=== PATIENT | male | born 1965 | race Caucasian/White ===

== ENCOUNTER 2016-09-21 23:16 | Emergency (ER) | payer OTHER ==
[2016-09-21 23:35] VITALS: TEMP 98.3
--- NOTE | 2016-09-22 00:26 | ED ---
General Adult HPI - General Chief complaint: Headache Stated complaint: Fall/Headaches Time Seen by Provider: 09/22/16 00:18 Source: patient, RN notes reviewed Mode of arrival: ambulatory Limitations: no limitations - History of Present Illness Initial comments: Patient is a 50-year-old male who presents emergency room today with a chief complaint of a fall that occurred 2 weeks ago. He does admit that he's had headaches with "pressure" in the back of his head over the last 2 weeks. He states he saw his family doctor was diagnosed concussion at the time. Patient states still having any symptoms at times is been somewhat forgetful. He gives examples of being in the kitchen coming only from downstairs not sure what he is looking for. Patient states the pressure in his head is constant. He denies any other complaints. Patient denies any recent fever, chills, shortness of breath, chest pain, back pain, abdominal pain, nausea or vomiting, numbness or tingling, dysuria or hematuria, constipation or diarrhea, visual changes, or any other complaints. - Related Data Allergies Allergy/AdvReac Type Severity Reaction Status Date / Time No Known Allergies Allergy Verified 09/21/16 23:35 Review of Systems ROS Statement: Those systems with pertinent positive or pertinent negative responses have been documented in the HPI. ROS Other: All systems not noted in ROS Statement are negative. Past Medical History Past Medical History: Hypertension, Osteoarthritis (OA) History of Any Multi-Drug Resistant Organisms: None Reported Additional Past Surgical History / Comment(s): Laparotomy Past Psychological History: No Psychological Hx Reported Smoking Status: Current every day smoker Past Alcohol Use History: Daily, Heavy General Exam - General Exam Comments Initial Comments: General: The patient is awake and alert, in no distress, and does not appear acutely ill. Eye: Pupils are equal, round and reactive to light, extra-ocular movements are intact. No nystagmus. There is normal conjunctiva bilaterally. No signs of icterus. Ears, nose, mouth and throat: There are moist mucous membranes and no oral lesions. Neck: The neck is supple, there is no tenderness or JVD. Cardiovascular: There is a regular rate and rhythm. No murmur, rub or gallop is appreciated. Respiratory: Lungs are clear to auscultation, respirations are non-labored, breath sounds are equal. No wheezes, stridor, rales, or rhonchi. Gastrointestinal: Soft, non-distended, non-tender abdomen without masses or organomegaly noted. There is no rebound or guarding present. No CVA tenderness. Bowel sounds are unremarkable. Musculoskeletal: Normal ROM, no tenderness. Strength 5/5. Sensation intact. Pulses equal bilaterally 2+. Neurological: A&O x 3. CN II-XII intact, There are no obvious motor or sensory deficits. Coordination appears grossly intact. Speech is normal. Normal finger to nose testing. Normal rapid alternating movements. Strength 5/5 bilaterally both upper and lower extremities. Normal gait. Skin: Skin is warm and dry and no rashes or lesions are noted. Psychiatric: Cooperative, appropriate mood & affect, normal judgment. Limitations: no limitations Course Vital Signs 09/21/16 23:31 Temperature 98.3 F Pulse Rate 105 H Respiratory 20 Rate Blood Pressure 127/73 O2 Sat by Pulse 96 Oximetry Medical Decision Making - Medical Decision Making Patient's CT reviewed and is unremarkable. Signs and symptoms of postconcussion syndrome were discussed with the patient. Patient was found his family doctor also be given on-call neurology. Advised to limit physical activity return here to the emergency room for any symptoms increase or worsen or for any other concerns. Disposition Clinical Impression: Postconcussion syndrome Disposition: HOME SELF-CARE Condition: Good Instructions: Post Concussion Syndrome (ED) Additional Instructions: Please return to physical activity Please follow-up with family doctor/ neurologist in the next 2 days. Please return to emergency room if the symptoms increase or worsen or for any other concerns. Referrals: Morales Adorno MD [Primary Care Provider] - 1-2 days Gale Cramer MD [STAFF PHYSICIAN] - 1-2 days Time of Disposition: 00:46
--- NOTE | 2016-09-22 00:40 | CT ---
EXAMINATION TYPE: CT brain wo con DATE OF EXAM: 09/22/2016 12:33 AM COMPARISON: 01/14/2010 HISTORY: headache and pressure in head CT DLP: 978.20 mGycm Automated exposure control for dose reduction was used. FINDINGS: The ventricles and sulci appear normal. There is no mass effect or midline shift. There is no sign of intracranial hemorrhage. The calvarium is intact. IMPRESSION: Negative unenhanced head CT scan. No change.
[2016-09-22 01:04] VITALS: BP 129/79; PULSE 81; RESP 16
== END 2016-09-22 01:03 | disposition home or self-care (01) ==
LOC: EC 23:16
DX: F07.81 Postconcussional syndrome (principal); F17.200 Nicotine dependence, unspecified, uncomplicated
CPT/HCPCS: 70450; 99284

== ENCOUNTER 2016-11-25 20:11 | Emergency (ER) | payer OTHER ==
[2016-11-25 20:18] VITALS: BP 140/80; PULSE 84; RESP 20; TEMP 97.8
[2016-11-25] MEDS ORDERED: IBUPROFEN 400 MG TAB PO STA (20:24)
--- NOTE | 2016-11-25 20:47 | XR ---
EXAMINATION TYPE: XR knee complete RT DATE OF EXAM: 11/25/2016 8:43 PM COMPARISON: NONE HISTORY: Knee pain TECHNIQUE: 3 views FINDINGS: I see no fracture nor dislocation. Joint spaces are normal. There is no sign of joint effus ion. There is a small spur on the superior patella. IMPRESSION: No acute abnormality of the right knee.
--- NOTE | 2016-11-25 21:15 | ED ---
Lower Extremity Injury HPI - General Chief Complaint: Extremity Injury, Lower Stated Complaint: rt knee injury Time Seen by Provider: 11/25/16 20:22 Source: patient Mode of arrival: ambulatory Limitations: no limitations - History of Present Illness Initial Comments: Patient's 51-year-old man who presents to be evaluated for right knee pain. He states that approximately 2 days ago he was crossing over a gate that he use keep the dog out of his kitchen. He states that his foot caught on and he fell striking the anterior aspect of his right patella. The patient states that he injured that same spot today when he struck it on something while walking. He states that the pain is now moderately severe. 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 denies weakness or numbness. MD Complaint: knee injury Onset/Timin -: days(s) Injury: Knee: Right Type of Injury: blunt Place: home Severity: moderate Improves With: nothing Worsens With: movement Context: fall, direct blow - Related Data Home Medications Medication Instructions Recorded Confirmed Lisinopril 30 mg PO DAILY 11/25/16 11/25/16 Naproxen 500 mg PO DAILY PRN 11/25/16 11/25/16 Previous Rx's Medication Instructions Recorded traMADol HCl [Ultram] 50 mg PO Q6H PRN #16 tab 11/25/16 Allergies Allergy/AdvReac Type Severity Reaction Status Date / Time No Known Allergies Allergy Verified 11/25/16 20:29 Review of Systems ROS Statement: Those systems with pertinent positive or pertinent negative responses have been documented in the HPI. ROS Other: All systems not noted in ROS Statement are negative. Constitutional: Denies: fever, weakness Musculoskeletal: Reports: as per HPI, arthralgia Skin: Denies: lesions Neurological: Denies: weakness, numbness, paresthesias Past Medical History Past Medical History: Hypertension, Osteoarthritis (OA) History of Any Multi-Drug Resistant Organisms: None Reported Additional Past Surgical History / Comment(s): Laparotomy Past Psychological History: No Psychological Hx Reported Smoking Status: Current every day smoker Past Alcohol Use History: Daily, Heavy Past Drug Use History: None Reported General Exam Limitations: no limitations General appearance: alert, in no apparent distress Right Hip exam: Present: full ROM Upper Leg exam: Present: normal inspection, full ROM. Absent: tenderness, swelling Knee exam: Present: normal inspection, full ROM, tenderness (Over the anterior patella), full knee extension. Absent: swelling, abrasion, laceration, ecchymosis, deformity, crepitus, dislocation, pain w/ pronation/supination, posterior draw sign, pain/laxity with valgus, pain/laxity with varus Lower Leg exam: Present: normal inspection, full ROM. Absent: tenderness, swelling Course Vital Signs 11/25/16 20:15 Temperature 97.8 F Pulse Rate 84 Respiratory 20 Rate Blood Pressure 140/80 O2 Sat by Pulse 98 Oximetry Disposition Clinical Impression: Contusion of knee Disposition: HOME SELF-CARE Condition: Good Instructions: Knee Pain (ED), Contusion in Adults (ED) Prescriptions: traMADol HCl [Ultram] 50 mg PO Q6H PRN #16 tab PRN Reason: Pain Referrals: Morales Adorno MD [Primary Care Provider] - 1-2 days
== END 2016-11-25 21:30 | disposition home or self-care (01) ==
LOC: EC 20:11
DX: S80.01XA Contusion of right knee, initial encounter (principal); I10 Essential (primary) hypertension; F17.200 Nicotine dependence, unspecified, uncomplicated; Z79.899 Other long term (current) drug therapy; W01.10XA Fall on same level from slipping, tripping and stumbling with subsequent striking against unspecified object, initial encounter
CPT/HCPCS: 99283

== ENCOUNTER 2016-11-26 08:57 | Emergency (ER) | payer OTHER ==
[2016-11-26 09:06] VITALS: RESP 18
[2016-11-26] MEDS ORDERED: IPRATROPIUM-ALBUTEROL 3 ML NEB INHALATION STA (09:23)
--- NOTE | 2016-11-26 09:31 | ED ---
General Adult HPI - General Chief complaint: Extremity Injury, Lower Stated complaint: NUMBNESS LEFT SIDE, RT KNEE PAIN Time Seen by Provider: 11/26/16 09:14 Source: patient, RN notes reviewed Mode of arrival: wheelchair Limitations: no limitations - History of Present Illness Initial comments: 51-year-old male presents emergency Department with chief complaint of left leg numbness, left-sided weakness. Patient states that he just did not feel right when he went to work this morning. 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 He states that he was walking and seemed to be leaning to the left. Patient did state that he was here last night for right knee pain consistent injury from hitting the gait caused by his dog. Patient states that he does not feel that this was causing him to have an unsteady gait. Patient though states that it does hurt to ambulate on his right side. Denies any upper extremity weakness at this time denies any lower [place] weakness denies headache, dizziness, blurred vision. Patient that should hypertension no other cardiac disease. Patient states is a daily smoker and daily drinker. - Related Data Home Medications Medication Instructions Recorded Confirmed Lisinopril 30 mg PO DAILY 11/25/16 11/26/16 Naproxen 500 mg PO DAILY PRN 11/25/16 11/26/16 Allergies Allergy/AdvReac Type Severity Reaction Status Date / Time No Known Allergies Allergy Verified 11/26/16 10:38 Review of Systems ROS Statement: Those systems with pertinent positive or pertinent negative responses have been documented in the HPI. ROS Other: All systems not noted in ROS Statement are negative. Past Medical History Past Medical History: Hypertension, Osteoarthritis (OA) History of Any Multi-Drug Resistant Organisms: None Reported Additional Past Surgical History / Comment(s): Laparotomy Past Psychological History: No Psychological Hx Reported Smoking Status: Current every day smoker Past Alcohol Use History: Daily, Heavy Past Drug Use History: None Reported General Exam Limitations: no limitations General appearance: alert, in no apparent distress Head exam: Present: atraumatic, normocephalic, normal inspection Eye exam: Present: normal appearance, PERRL, EOMI. Absent: scleral icterus, conjunctival injection, periorbital swelling ENT exam: Present: normal exam, normal oropharynx, mucous membranes moist, TM's normal bilaterally, normal external ear exam Neck exam: Present: normal inspection, full ROM. Absent: tenderness, meningismus, lymphadenopathy Respiratory exam: Present: normal lung sounds bilaterally. Absent: respiratory distress, wheezes, rales, rhonchi, stridor Cardiovascular Exam: Present: regular rate, normal rhythm, normal heart sounds. Absent: systolic murmur, diastolic murmur, rubs, gallop, clicks Extremities exam: Present: normal inspection, full ROM, normal capillary refill. Absent: tenderness, pedal edema, joint swelling, calf tenderness Back exam: Present: tenderness. Absent: full ROM, paraspinal tenderness, vertebral tenderness Neurological exam: Present: alert, oriented X3, CN II-XII intact, other (GCS of 15, NIH 0) Skin exam: Present: warm, dry, intact, normal color. Absent: rash Course Vital Signs 11/26/16 11/26/16 11/26/16 09:02 09:36 09:44 Temperature 97.6 F Pulse Rate 99 82 82 Respiratory 18 Rate Blood Pressure 138/86 O2 Sat by Pulse 96 Oximetry EKG Findings - EKG Comments: EKG Findings:: EKG performed at 9:40 normal sinus rhythm with a rate of 97, VT interval 168, QRS duration 84, QT/QTC 320/406 Medical Decision Making - Medical Decision Making 51-year-old male presented for left leg numbness. Patient has no evidence of CVA, TIA symptoms. Patient's lab work does show mild elevation liver functions most likely related to his alcohol abuse and he does have alcohol of 400. Patient is able to ambulate in the emergency department has no focal weakness. Patient's paresthesias may relate to him favoring his left leg secondary to his right leg injury. Patient will have family come pick him up and when she wakes up responsibility of the patient. - Lab Data Result diagrams: 11/26/16 09:29 11/26/16 09:29 Lab Results 11/26/16 11/26/16 11/26/16 Range/Units 09:29 09:29 09:29 WBC 6.4 (3.8-10.6) k/uL RBC 4.44 (4.30-5.90) m/uL Hgb 14.7 (13.0-17.5) gm/dL Hct 45.0 (39.0-53.0) % MCV 101.5 H (80.0-100.0) fL MCH 33.0 (25.0-35.0) pg MCHC 32.5 (31.0-37.0) g/dL RDW 13.6 (11.5-15.5) % Plt Count 206 (150-450) k/uL Neutrophils % 63 % Lymphocytes % 22 % Monocytes % 8 % Eosinophils % 2 % Basophils % 1 % Neutrophils # 4.1 (1.3-7.7) k/uL Lymphocytes # 1.4 (1.0-4.8) k/uL Monocytes # 0.5 (0-1.0) k/uL Eosinophils # 0.1 (0-0.7) k/uL Basophils # 0.1 (0-0.2) k/uL Macrocytosis Slight Sodium 138 (137-145) mmol/L Potassium 5.2 H (3.5-5.1) mmol/L Chloride 99 (98-107) mmol/L Carbon Dioxide 24 (22-30) mmol/L Anion Gap 15 mmol/L BUN 12 (9-20) mg/dL Creatinine 0.81 (0.66-1.25) mg/dL Est GFR (MDRD) Af Amer >60 (>60 ml/min/1.73 sqM) Est GFR (MDRD) Non-Af >60 (>60 ml/min/1.73 sqM) Glucose 100 H (74-99) mg/dL Calcium 8.5 (8.4-10.2) mg/dL Magnesium 2.2 (1.6-2.3) mg/dL Total Bilirubin 0.4 (0.2-1.3) mg/dL AST 177 H (17-59) U/L ALT 103 H (21-72) U/L Alkaline Phosphatase 113 (38-126) U/L Troponin I <0.012 (0.000-0.034) ng/mL Total Protein 7.9 (6.3-8.2) g/dL Albumin 4.4 (3.5-5.0) g/dL Serum Alcohol 411 mg/dL Disposition Clinical Impression: Alcohol intoxication, Left leg paresthesias Disposition: HOME SELF-CARE Condition: Stable Instructions: Alcohol Intoxication (ED) Additional Instructions: Please return to the Emergency Department if symptoms worsen or any other concerns. Time of Disposition: 10:44
[2016-11-26 09:40] LABS: Basophils # (A) 0.1 k/uL (0-0.2); Basophils % (A) 1 %; CH 33.5; CHCM 33.2; Eosinophils # (A) 0.1 k/uL (0-0.7); Eosinophils % (A) 2 %; HDW 2.02; HGB 14.7 gm/dL (13.0-17.5); Luc # (Auto) 0.24; Luc % (Auto) 4; Lymphocytes # (A) 1.4 k/uL (1.0-4.8); Lymphocytes % (A) 22 %; MCHC 32.5 g/dL (31.0-37.0); MCV 101.5 fL (80.0-100.0); Macrocytosis Slight; Mean Platelet Volume 6.8; Monocytes # (A) 0.5 k/uL (0-1.0); Monocytes % (A) 8 %; Neutrophils # (A) 4.1 k/uL (1.3-7.7); Neutrophils % (A) 63 %; RBC 4.44 m/uL (4.30-5.90); RDW 13.6 % (11.5-15.5); WBC 6.4 k/uL (3.8-10.6); WBC (Perox) 6.48
[2016-11-26 09:49] LABS: ALT 103 U/L (21-72); AST 177 U/L (17-59); Alkaline Phosphatase 113 U/L (38-126); Anion Gap 15 mmol/L; Blood Urea Nitrogen 12 mg/dL (9-20); Calcium 8.5 mg/dL (8.4-10.2); Carbon Dioxide 24 mmol/L (22-30); Chloride 99 mmol/L (98-107); Glucose 100 mg/dL (74-99); Magnesium 2.2 mg/dL (1.6-2.3); Non-African American GFR(MDRD) >60 (>60 ml/min/1.73 sqM); Potassium 5.2 mmol/L (3.5-5.1); Sodium 138 mmol/L (137-145); Total Bilirubin 0.4 mg/dL (0.2-1.3); Total Protein 7.9 g/dL (6.3-8.2)
--- NOTE | 2016-11-26 10:01 | CT ---
EXAMINATION TYPE: CT brain wo con DATE OF EXAM: 11/26/2016 9:54 AM COMPARISON: Prior head CT 02 October 2016 HISTORY: Leaning to the Lt CT DLP: 998.5 mGycm Automated exposure control for dose reduction was used. FINDINGS: There is no acute intracranial hemorrhage, mass effect, or midline shift identified. The ventricles and sulci are within normal limits in size. The globes are intact and the visualized sinuses are earle ar. IMPRESSION: No acute intracranial hemorrhage, mass effect, or midline shift is seen.
--- NOTE | 2016-11-26 10:03 | XR ---
EXAMINATION TYPE: XR chest 2V DATE OF EXAM: 11/26/2016 9:55 AM COMPARISON: Prior chest x-ray 28 June 2013 HISTORY: Shortness of breath TECHNIQUE: Frontal and lateral views of the chest are obtained. FINDINGS: There is no focal air space opacity, pleural effusion, or pneumothorax seen. The cardiac silhouette size is within normal limits. The osseous structures are intact. IMPRESSION: No acute cardiopulmonary process.
[2016-11-26 10:08] LABS: Alcohol 411 mg/dL
[2016-11-26 10:54] VITALS: BP 152/88; PULSE 95; TEMP 97
== END 2016-11-26 10:54 | disposition home or self-care (01) ==
LOC: EC 08:57
DX: S89.92XA Unspecified injury of left lower leg, initial encounter (principal); R20.9 Unspecified disturbances of skin sensation; F10.129 Alcohol abuse with intoxication, unspecified; R79.89 Other specified abnormal findings of blood chemistry; I10 Essential (primary) hypertension; M19.90 Unspecified osteoarthritis, unspecified site; F17.200 Nicotine dependence, unspecified, uncomplicated; Z79.899 Other long term (current) drug therapy; W22.09XA Striking against other stationary object, initial encounter
CPT/HCPCS: 36415; 70450; 71020; 80053; 80320; 83735; 84484; 85025; 93005; 94640; 99284

== ENCOUNTER → 2017-02-23 | Outpatient (CLI) | payer OTHER ==
--- NOTE | 2017-02-23 08:17 | CT ---
EXAMINATION TYPE: CT brain wo con DATE OF EXAM: 02/23/2017 HISTORY: dizziness per patient. Syncope per order CT DLP: 892.1 mGycm. Automated Exposure Control for Dose Reduction was Utilized. TECHNIQUE: CT scan of the head is performed without contrast. COMPARISON: CT brain November 26, 2016 FINDINGS: There is no acute intracranial hemorrhage or midline shift identified. There is diffuse v entricular and sulcal prominence consistent with diffuse age-related cerebral atrophy. The globes ar e intact and the visualized sinuses are clear. No suspicious opacification of mastoid air cells is seen. IMPRESSION: No acute intracranial hemorrhage or midline shift. There is mild diffuse age-related ce rebral atrophy redemonstrated. No significant change from prior study is seen to account for patient' s symptoms.
--- NOTE | 2017-02-23 09:04 | US ---
EXAMINATION TYPE: US abdomen limited DATE OF EXAM: 02/23/2017 COMPARISON: NONE CLINICAL HISTORY: 51-year-old male R94.5 abnormal liver function. Elevated liver enzymes. TECHNIQUE: Multiple sonographic images of the right upper quadrant are obtained. FINDINGS: Liver Length: 17.4 cm Gallbladder Wall: 0.3 cm CBD: 0.4 cm Right Kidney: 10.9 x 5.4 x 5.8 cm Pancreas: Slightly heterogeneous appearance. Limited visualization of the pancreatic head and tail. Liver: Borderline enlarged, markedly echogenic and attenuating. This secondary that limits assessment for focal lesion. Gallbladder: No abnormal gallbladder distention, wall thickening, pericholecystic fluid, or shadowin g calculi. Evidence for sonographic Craig's sign: No CBD: wnl Right Kidney: no evidence of hydronephrosis. IMPRESSION: 1. Borderline hepatomegaly and severe hepatic steatosis. Correlate with LFTs, lipid profile, and yanelis ent risk factors. 2. Heterogeneous appearance to the pancreas may be on a technical basis. Correlate with amylase and l ipase to exclude inflammation.
== END | disposition home or self-care (01) ==
LOC: RADCTMAIN 07:56
PROVIDERS: ATTEND Internal Medicine
DX: G31.1 Senile degeneration of brain, not elsewhere classified (principal); R16.0 Hepatomegaly, not elsewhere classified; K76.0 Fatty (change of) liver, not elsewhere classified; R79.89 Other specified abnormal findings of blood chemistry
CPT/HCPCS: 70450; 76705

== ENCOUNTER → 2017-10-04 | Outpatient (CLI) | payer OTHER | END | disposition home or self-care (01) | LOC: RADECHMAIN 11:44 | PROVIDERS: ATTEND Internal Medicine | DX: R00.2 Palpitations (principal); R00.0 Tachycardia, unspecified | CPT/HCPCS: 93225; 93226 ==

== ENCOUNTER 2018-11-15 11:58 | Observation (INO) | payer OTHER ==
[2018-11-15] MEDS ORDERED: SODIUM CHLORIDE 0.9% 1,000 ML IV STA (12:19)
[2018-11-15] MEDS ORDERED: FAMOTIDINE 20 MG/2 ML VIAL IV STA (12:20)
--- NOTE | 2018-11-15 12:25 | ED ---
Abdominal Pain HPI - General Chief Complaint: Abdominal Pain Stated Complaint: Abd pain Time Seen by Provider: 11/15/18 12:09 Source: patient, RN notes reviewed Mode of arrival: ambulatory Limitations: no limitations - History of Present Illness Initial Comments: This is a 52-year-old male with a prior history of colonoscopy with cancerous polyps or removed many years ago his last colonoscopy was 3 years ago was apparently negative who for the past 2 days and lower abdominal pain he states it tends will be severe he's had dark bloody bowel movements. He states he has relief from the pain after having 2 or 3 bowel movements in the recurs. He dedrick es any fevers or chills he has some sweats this morning with the pain. He states for the most part the pain is sharp in nature when it comes on. No previous abdominal surgeries. MD Complaint: abdominal pain, other - Related Data Home Medications Medication Instructions Recorded Confirmed Multivitamins, Thera [Multivitamin 1 tab PO DAILY 08/10/17 11/15/18 (formulary)] amLODIPine [Norvasc] 5 mg PO DAILY 11/15/18 11/15/18 Allergies Allergy/AdvReac Type Severity Reaction Status Date / Time No Known Allergies Allergy Verified 11/15/18 12:49 Review of Systems ROS Statement: Those systems with pertinent positive or pertinent negative responses have been documented in the HPI. ROS Other: All systems not noted in ROS Statement are negative. Past Medical History Past Medical History: Hypertension, Osteoarthritis (OA) History of Any Multi-Drug Resistant Organisms: None Reported Additional Past Surgical History / Comment(s): Laparotomy Past Psychological History: No Psychological Hx Reported Smoking Status: Current every day smoker Past Alcohol Use History: Daily, Heavy Past Drug Use History: None Reported General Exam - General Exam Comments Initial Comments: This a well-developed well-nourished awake alert oriented times female Limitations: no limitations General appearance: alert, anxious Head exam: Present: atraumatic, normocephalic, normal inspection Eye exam: Present: normal appearance, PERRL, EOMI. Absent: scleral icterus, conjunctival injection, periorbital swelling ENT exam: Present: normal exam, mucous membranes moist Neck exam: Present: normal inspection. Absent: tenderness, meningismus, l ymphadenopathy Respiratory exam: Present: normal lung sounds bilaterally. Absent: respiratory distress, wheezes, rales, rhonchi, stridor Cardiovascular Exam: Present: normal rhythm, tachycardia, normal heart sounds. Absent: systolic murmur, diastolic murmur, rubs, gallop, clicks GI/Abdominal exam: Present: soft, tenderness (Mild lower abdominal tenderness palpation no guarding rebound masses or bruits), normal bowel sounds. Absent: distended, guarding, rebound, rigid Rectal exam: Present: normal rectal tone (Very faint black colored stool minimal quantity), heme (+) stool, black stool Extremities exam: Present: normal inspection, full ROM, normal capillary refill. Absent: tenderness, pedal edema, joint swelling, calf tenderness Back exam: Present: normal inspection Neurological exam: Present: alert, oriented X3, CN II-XII intact Psychiatric exam: Present: normal affect, normal mood Skin exam: Present: warm, dry, intact, normal color. Absent: rash Course Vital Signs 11/15/18 11/15/18 12:05 15:36 Temperature 98.6 F 98.1 F Pulse Rate 108 H 95 Respiratory 18 18 Rate Blood Pressure 198/103 161/95 O2 Sat by Pulse 98 95 Oximetry Medical Decision Making - Medical Decision Making Patient did demonstrate heme-positive stools lab work is within normal limits. Imaging studies initially were unremarkable CAT scan was later ordered did show evidence of colitis. Patient will be admitted I did discuss case Dr. Givens. The GI service will be consulted. Dr. Givens to see the patient in the emergency department. - Lab Data Result diagrams: 11/15/18 12:35 11/15/18 12:35 Lab Results 11/15/18 11/15/18 11/15/18 Range/Units 12:35 12:35 12:35 WBC 12.2 H (3.8-10.6) k/uL RBC 4.93 (4.30-5.90) m/uL Hgb 16.0 (13.0-17.5) gm/dL Hct 45.9 (39.0-53.0) % MCV 93.1 (80.0-100.0) fL MCH 32.5 (25.0-35.0) pg MCHC 34.9 (31.0-37.0) g/dL RDW 14.0 (11.5-15.5) % Plt Count 207 (150-450) k/uL Neutrophils % 77 % Lymphocytes % 13 % Monocytes % 4 % Eosinophils % 4 % Basophils % 0 % Neutrophils # 9.4 H (1.3-7.7) k/uL Lymphocytes # 1.6 (1.0-4.8) k/uL Monocytes # 0.5 (0-1.0) k/uL Eosinophils # 0.4 (0-0.7) k/uL Basophils # 0.1 (0-0.2) k/uL Sodium 139 (137-145) mmol/L Potassium 3.9 (3.5-5.1) mmol/L Chloride 108 H (98-107) mmol/L Carbon Dioxide 22 (22-30) mmol/L Anion Gap 9 mmol/L BUN 12 (9-20) mg/dL Creatinine 0.82 (0.66-1.25) mg/dL Est GFR (CKD-EPI)AfAm >90 (>60 ml/min/1.73 sqM) Est GFR (CKD-EPI)NonAf >90 (>60 ml/min/1.73 sqM) Glucose 110 H (74-99) mg/dL Plasma Lactic Acid Shankar 1.2 (0.7-2.0) mmol/L Calcium 9.8 (8.4-10.2) mg/dL Total Bilirubin 0.9 (0.2-1.3) mg/dL AST 43 (17-59) U/L ALT 39 (21-72) U/L Alkaline Phosphatase 136 H (38-126) U/L Creatine Kinase 233 H (55-170) U/L Total Protein 7.8 (6.3-8.2) g/dL Albumin 4.5 (3.5-5.0) g/dL Amylase 73 (30-110) U/L Lipase 173 (23-300) U/L Urine Color Urine Appearance (Clear) Urine pH (5.0-8.0) Ur Specific [place] (1.001-1.035) Urine Protein (Negative) Urine Glucose (UA) (Negative) Urine Ketones (Negative) Urine Blood (Negative) Urine Nitrite (Negative) Urine Bilirubin (Negative) Urine Urobilinogen (<2.0) mg/dL Ur Leukocyte Esterase (Negative) Stool Occult Blood (Negative) Blood Type Blood Type Confirm Blood Type Recheck Antibody Screen Spec Expiration Date 04/04/19 04/04/19 04/04/19 Range/Units 12:35 13:40 14:50 WBC (3.8-10.6) k/uL RBC (4.30-5.90) m/uL Hgb (13.0-17.5) gm/dL Hct (39.0-53.0) % MCV (80.0-100.0) fL MCH (25.0-35.0) pg MCHC (31.0-37.0) g/dL RDW (11.5-15.5) % Plt Count (150-450) k/uL Neutrophils % % Lymphocytes % % Monocytes % % Eosinophils % % Basophils % % Neutrophils # (1.3-7.7) k/uL Lymphocytes # (1.0-4.8) k/uL Monocytes # (0-1.0) k/uL Eosinophils # (0-0.7) k/uL Basophils # (0-0.2) k/uL Sodium (137-145) mmol/L Potassium (3.5-5.1) mmol/L Chloride (98-107) mmol/L Carbon Dioxide (22-30) mmol/L Anion Gap mmol/L BUN (9-20) mg/dL Creatinine (0.66-1.25) mg/dL Est GFR (CKD-EPI)AfAm (>60 ml/min/1.73 sqM) Est GFR (CKD-EPI)NonAf (>60 ml/min/1.73 sqM) Glucose (74-99) mg/dL Plasma Lactic Acid Shankar (0.7-2.0) mmol/L Calcium (8.4-10.2) mg/dL Total Bilirubin (0.2-1.3) mg/dL AST (17-59) U/L ALT (21-72) U/L Alkaline Phosphatase (38-126) U/L Creatine Kinase (55-170) U/L Total Protein (6.3-8.2) g/dL Albumin (3.5-5.0) g/dL Amylase (30-110) U/L Lipase (23-300) U/L Urine Color Yellow Urine Appearance Clear (Clear) Urine pH 5.0 (5.0-8.0) Ur Specific [place] 1.021 (1.001-1.035) Urine Protein Trace H (Negative) Urine Glucose (UA) Negative (Negative) Urine Ketones 1+ H (Negative) Urine Blood Negative (Negative) Urine Nitrite Negative (Negative) Urine Bilirubin Negative (Negative) Urine Urobilinogen <2.0 (<2.0) mg/dL Ur Leukocyte Esterase Negative (Negative) Stool Occult Blood (Negative) Blood Type B Positive Blood Type Confirm B Positive Blood Type Recheck CABO Indicated Antibody Screen NEGATIVE Spec Expiration Date 11/18/2018 - 233411/15/18 Range/Units 15:30 WBC (3.8-10.6) k/uL RBC (4.30-5.90) m/uL Hgb (13.0-17.5) gm/dL Hct (39.0-53.0) % MCV (80.0-100.0) fL MCH (25.0-35.0) pg MCHC (31.0-37.0) g/dL RDW (11.5-15.5) % Plt Count (150-450) k/uL Neutrophils % % Lymphocytes % % Monocytes % % Eosinophils % % Basophils % % Neutrophils # (1.3-7.7) k/uL Lymphocytes # (1.0-4.8) k/uL Monocytes # (0-1.0) k/uL Eosinophils # (0-0.7) k/uL Basophils # (0-0.2) k/uL Sodium (137-145) mmol/L Potassium (3.5-5.1) mmol/L Chloride (98-107) mmol/L Carbon Dioxide (22-30) mmol/L Anion Gap mmol/L BUN (9-20) mg/dL Creatinine (0.66-1.25) mg/dL Est GFR (CKD-EPI)AfAm (>60 ml/min/1.73 sqM) Est GFR (CKD-EPI)NonAf (>60 ml/min/1.73 sqM) Glucose (74-99) mg/dL Plasma Lactic Acid Shankar (0.7-2.0) mmol/L Calcium (8.4-10.2) mg/dL Total Bilirubin (0.2-1.3) mg/dL AST (17-59) U/L ALT (21-72) U/L Alkaline Phosphatase (38-126) U/L Creatine Kinase (55-170) U/L Total Protein (6.3-8.2) g/dL Albumin (3.5-5.0) g/dL Amylase (30-110) U/L Lipase (23-300) U/L Urine Color Urine Appearance (Clear) Urine pH (5.0-8.0) Ur Specific [place] (1.001-1.035) Urine Protein (Negative) Urine Glucose (UA) (Negative) Urine Ketones (Negative) Urine Blood (Negative) Urine Nitrite (Negative) Urine Bilirubin (Negative) Urine Urobilinogen (<2.0) mg/dL Ur Leukocyte Esterase (Negative) Stool Occult Blood Positive (Negative) Blood Type Blood Type Confirm Blood Type Recheck Antibody Screen Spec Expiration Date - Radiology Data Radiology results: report reviewed (I did review the imaging and report no acute findings on x-rays over a CT did show evidence of colitis. Please see the complete report), image reviewed Disposition Clinical Impression: Colitis, Acute abdominal pain, GI bleed Disposition: ADMITTED IP TO THIS [facility] Condition: Stable Referrals: Morales Adorno MD [Primary Care Provider] - 1-2 days
[2018-11-15 12:48] LABS: Basophils # (A) 0.1 k/uL (0-0.2); Basophils % (A) 0 %; Eosinophils # (A) 0.4 k/uL (0-0.7); Eosinophils % (A) 4 %; HCT 45.9 % (39.0-53.0); Lymphocytes # (A) 1.6 k/uL (1.0-4.8); Lymphocytes % (A) 13 %; MCH 32.5 pg (25.0-35.0); MCHC 34.9 g/dL (31.0-37.0); MCV 93.1 fL (80.0-100.0); Mean Platelet Volume 7.7; Monocytes # (A) 0.5 k/uL (0-1.0); Monocytes % (A) 4 %; Neutrophils # (A) 9.4 k/uL (1.3-7.7); Neutrophils % (A) 77 %; Platelet Count 207 k/uL (150-450); RBC 4.93 m/uL (4.30-5.90); WBC 12.2 k/uL (3.8-10.6)
[2018-11-15 13:02] LABS: ALT 39 U/L (21-72); AST 43 U/L (17-59); Albumin 4.5 g/dL (3.5-5.0); Alkaline Phosphatase 136 U/L (38-126); Amylase 73 U/L (30-110); Anion Gap 9 mmol/L; Blood Urea Nitrogen 12 mg/dL (9-20); Calcium 9.8 mg/dL (8.4-10.2); Carbon Dioxide 22 mmol/L (22-30); Chloride 108 mmol/L (98-107); Creatine Kinase 233 U/L (55-170); Glucose 110 mg/dL (74-99); Lipase 173 U/L (23-300); Potassium 3.9 mmol/L (3.5-5.1); Sodium 139 mmol/L (137-145); Total Bilirubin 0.9 mg/dL (0.2-1.3); Total Protein 7.8 g/dL (6.3-8.2)
--- NOTE | 2018-11-15 13:16 | XR ---
EXAMINATION TYPE: XR abdomen 2V DATE OF EXAM: 11/15/2018 CLINICAL DATA: 52-year-old male with abdominal pain, PHH COMPARISON: None FINDINGS: Lung bases are clear. No evidence for free intraperitoneal air. No dilated small bowel or air-fluid levels. Scattered air and stool seen throughout the colon extendi ng distally into the rectum. Mild scattered stool. No suspicious calcifications identified. Metallic coils from prior mesh repair overlying the abdomen. IMPRESSION: Prior abdominal wall mesh repair. No evidence of bowel obstruction or free intraperitoneal air.
[2018-11-15 14:02] LABS: Appearance,Urine Clear (Clear); Bilirubin,Urine Negative (Negative); Blood,Urine Negative (Negative); Color,Urine Yellow; Glucose,Urine (UA) Negative (Negative); Ketones,Urine 1+ (Negative); Leukocyte Esterase,Urine Negative (Negative); Nitrite,Urine Negative (Negative); Protein,Urine Trace (Negative); Specific Gravity,Urine 1.021 (1.001-1.035); Urobilinogen,Urine <2.0 mg/dL (<2.0)
--- NOTE | 2018-11-15 14:59 | CT ---
EXAMINATION TYPE: CT abdomen pelvis w con DATE OF EXAM: 11/15/2018 COMPARISON: NONE HISTORY: 52-year-old male with abdominal pain/blood in his stool x 3 days TECHNIQUE: Contiguous axial scanning of the abdomen and pelvis following administration of 100 ml Iso walter 300 IV contrast. Delayed images through the kidneys and coronal/sagittal reconstructions perform ed. CT DLP: 1163.1 mGycm Automated exposure control for dose reduction was used. FINDINGS: Heart normal size without pericardial effusion. Visualized lung bases are clear without pleural effus ion. Liver borderline in size with low attenuation, possible underlying fatty infiltration. Portal venous system is patent. No biliary ductal dilatation. Gallbladder, adrenal glands, kidneys, spleen, and pancreas appear within normal limits. No dilated small bowel, free fluid, or free air. No mesenteric or retroperitoneal lymphadenopathy. Moderate atherosclerotic calcifications within the abdominal aorta and iliac arteries with possible m oderate to severe atherosclerotic narrowing at the right common iliac artery. There is moderate circumferential wall thickening throughout the colon to the level of the proximal s igmoid. Some segments show greater degree of thickening suggests the right hemicolon with minimal per icolonic fat stranding. Normal appendix. [id number] circumferential bladder wall thickening. No abnormal fluid collection in the pelvis or pelvic lymphadenopathy. Bones: Mild degenerative changes at the hips. Degenerative changes at the SI joints. Degenerative dis c disease L4-L5 and facet arthropathy lower lumbar spine. IMPRESSION: 1. GENERALIZED COLITIS EXTENDING FROM THE CECUM TO THE PROXIMAL SIGMOID WITH AREAS OF MODERATE WALL T HICKENING. GIVEN THE RELATIVE LACK OF SURROUNDING INFLAMMATORY FAT STRANDING, C. DIFFICILE COLITIS IS IN THE DIFFERENTIAL. OTHER INFECTIOUS OR INFLAMMATORY COLITIS NOT EXCLUDED. 2. MILD TO MODERATE CIRCUMFERENTIAL BLADDER WALL THICKENING COULD REPRESENT CHRONIC BLADDER WALL HYPE RTROPHY OR CYSTITIS.
[2018-11-15] MEDS ORDERED: LORazepam 2 MG/ML INJ IV PRN ×3 (15:47)
[2018-11-15] MEDS ORDERED: THIAMINE 100 MG/ML 2 ML VIAL IM STA (15:47)
[2018-11-15] MEDS ORDERED: HYDROmorphone 1 MG/ML 1 ML SYRINGE IVP PRN (16:36)
[2018-11-15] MEDS ORDERED: ONDANSETRON 4 MG/2 ML VIAL IVP PRN (16:36)
[2018-11-15] MEDS ORDERED: NALOXONE 0.4 MG/ML 1 ML VIAL IV PRN (16:36)
[2018-11-15] MEDS: SODIUM CHLORIDE 0.9% 1,000 ML IV SCH (18:23)
[2018-11-15] MEDS: THIAMINE 100 MG TAB PO SCH (18:24)
[2018-11-15] MEDS ORDERED: cloNIDine HCL 0.1 MG TAB PO PRN (19:11)
[2018-11-15] MEDS ORDERED: TEMAZEPAM 15 MG CAP PO PRN (19:11)
[2018-11-15] MEDS ORDERED: ALPRAZolam 0.25 MG TAB PO PRN (19:11)
[2018-11-15] MEDS ORDERED: HYDROcodone/APAP 5-325MG 1 EACH TAB PO PRN (19:11)
--- NOTE | 2018-11-15 19:57 | XR ---
EXAMINATION: XR chest 1V portable DATE AND TIME: 11/15/2018 7:33 PM CLINICAL INDICATION: PHH; chf TECHNIQUE: Frontal view COMPARISON: 08/10/2017 FINDINGS: The lungs are clear. The pleural spaces are negative. The cardiac silhouette is not enlarged. The remainder of the mediastinal silhouette is unremarkable. The skeletal structures and soft tissues are negative for acute findings. IMPRESSION: NO ACUTE PROCESS.
[2018-11-15] MEDS: LEVOFLOXACIN 500MG-D5W PMX 500 MG in DEXTROSE/WATER 1 100ML.BAG IVPB SCH (21:53)
[2018-11-15] MEDS: PANTOPRAZOLE 40 MG/10 ML VIAL IV SCH (21:54)
[2018-11-15] MEDS: HEPARIN SODIUM,PORCINE 5,000 UNIT/ML 1 ML VIAL SQ SCH (21:54)
--- NOTE | 2018-11-15 22:12 | HP ---
HISTORY AND PHYSICAL DATE OF SERVICE: 11/15/2018 CHIEF COMPLAINT: Abdominal pain. HISTORY OF PRESENT ILLNESS: This 52-year-old gentleman with a past medical history of multiple medical problems including hypertension, DJD, history of hernia repair, laparotomy, History of nicotine dependence, history of heavy alcohol intake, being followed by Dr. Adorno in the outpatient setting, was complaining of abdominal pain. The pain was situated in the lower abdomen, diffuse character. The patient also had severe multiple bloody bowel movements and the patient came to [facility] and admitted to the hospital for further evaluation and treatment. Patient did not have any fever, rigors or chills. No headache. No loss of consciousness. No seizures at this time. The patient's white count was found to be 12.2 and alkaline phosphatase 136. Stool OB was positive and the patient also had abdomen and pelvis CAT scan in the ER which was reviewed personally by me showed generalized colitis extending from the cecum to the proximal sigmoid with areas of moderate wall thickening given the surrounding inflammation and stranding. C difficile colitis in the differential. Other inflammatory bowel disease not excluded. Mild to moderate circumferential bladder wall thickening was also noted. Patient admitted for further evaluation and treatment. There is no history of fever, rigors or chills. No history of headache, loss of consciousness, seizures. PAST MEDICAL HISTORY: History of hypertension, DJD, history of hernia, laparotomy, history of nicotine dependence. Alcohol. MEDICATIONS: Prior to admission include home medications are: 1. Norvasc 5 mg daily. 2. Multivitamins one p.o. daily. ALLERGIES: None. FAMILY HISTORY: History of lung cancer in the family. SOCIAL HISTORY: History of smoking. History of alcohol. REVIEW OF SYSTEMS: ENT: No diminished vision. No diminished hearing. CARDIOVASCULAR SYSTEM: No angina or palpitations. RESPIRATORY: As mentioned earlier. GI: As mentioned earlier. no dysuria, no hematuria. No urinary retention. CENTRAL NERVOUS SYSTEM: No numbness or weakness. ALLERGY/IMMUNOLOGY: No asthma or hayfever. MUSCULOSKELETAL: As mentioned earlier. HEMATOLOGY/ONCOLOGY: No history of anemia. ENDOCRINE: No history of diabetes or hypothyroidism. CONSTITUTIONAL: As mentioned earlier. Dermatology: Negative. Rheumatology: Negative. Psychiatry: As mentioned earlier. PHYSICAL EXAMINATION: Alert and oriented x3, pulse 103, blood pressure 174/90, respiration 20, temperature 98.3, pulse ox 97% on room air. HEENT is conjunctivae normal. Oral mucosa moist. Neck is no jugular venous distention. No carotid bruit. No lymph node enlargement. Cardiovascular: S1-S2 muffled. RESPIRATORY: Breath sounds diminished in the bases. A few scattered rhonchi and crackles. ABDOMEN: Soft, obese, mild diffuse tenderness present. No guarding. No rigidity. No mass palpable. No ascites. Bowel sounds present. Legs: No edema. No swelling. Nervous system: Higher functions as mentioned earlier. Moves all 4 limbs. No focal motor or sensory deficits. Lymphatics: No lymph nodes palpable in the neck, axillae or groin. Skin no ulcer, rash, bleeding. JOINTS: No active deforming arthropathy. LABS: 1. At this time, shows WBC 12.2, hemoglobin 16. Sodium 139, potassium 3.9, and alkaline phosphatase 138. Creatinine kinase is 233. ASSESSMENT: 1. Acute abdominal pain with diffuse colitis, possible infectious colitis versus ischemic colitis. 2. History of ETOH. 3. ETOH withdrawals early. 4. Increased creatinine kinase. 5. Increased WBC. 6. History of hypertension. 7. History of degenerative joint disease. 8. History of hernia repair. 9. History of laparotomy. 10.History of nicotine dependence continued ongoing. 11.FULL CODE. RECOMMENDATIONS AND DISCUSSION: In this 52-year-old gentleman who presented with multiple complex medical issues, we will monitor the patient closely, continue the current medications, management, symptomatic treatment. Recommend empiric antibiotics. Also recommend Gastroenterology consultation for possible endoscopies. Other than that, DT precautions, alcohol withdrawal syndromes, DVT prophylaxis. Prognosis guarded because of multiple complex medical issues. Further recommendations to follow. Repeat the labs also. Smoking cessation advised. A copy of dictation being forwarded to Dr. Adorno who is the primary care physician. MMODL / IJN: [id number] / MTDD
[2018-11-16] MEDS: metroNIDAZOLE-NS PMX 500 MG in SALINE 1 100ML.BAG IVPB SCH ×4 (01:40→22:24)
[2018-11-16] MEDS: SODIUM CHLORIDE 0.9% 1,000 ML IV SCH ×2 (06:25→18:15)
[2018-11-16 08:31] LABS: Basophils % (A) 0 %; Eosinophils # (A) 0.3 k/uL (0-0.7); Eosinophils % (A) 3 %; HCT 44.7 % (39.0-53.0); HGB 15.1 gm/dL (13.0-17.5); Lymphocytes # (A) 1.4 k/uL (1.0-4.8); Lymphocytes % (A) 15 %; MCH 31.4 pg (25.0-35.0); MCHC 33.8 g/dL (31.0-37.0); MCV 92.8 fL (80.0-100.0); Mean Platelet Volume 9.4; Monocytes # (A) 0.6 k/uL (0-1.0); Monocytes % (A) 6 %; Neutrophils # (A) 7.1 k/uL (1.3-7.7); Neutrophils % (A) 74 %; Platelet Count 163 k/uL (150-450); RBC 4.81 m/uL (4.30-5.90); RDW 13.9 % (11.5-15.5); WBC 9.6 k/uL (3.8-10.6)
[2018-11-16 08:40] LABS: ALT 33 U/L (21-72); AST 33 U/L (17-59); Alkaline Phosphatase 104 U/L (38-126); Anion Gap 9 mmol/L; Blood Urea Nitrogen 9 mg/dL (9-20); Calcium 9.2 mg/dL (8.4-10.2); Carbon Dioxide 25 mmol/L (22-30); Chloride 103 mmol/L (98-107); Glucose 91 mg/dL (74-99); Potassium 3.9 mmol/L (3.5-5.1); Sodium 137 mmol/L (137-145); Total Bilirubin 0.9 mg/dL (0.2-1.3); Total Protein 7.3 g/dL (6.3-8.2)
[2018-11-16] MEDS: NICOTINE 14MG/24HR PATCH TRANSDERM SCH (09:50)
[2018-11-16] MEDS: amLODIPine 5 MG TAB PO SCH (09:50)
[2018-11-16] MEDS: HEPARIN SODIUM,PORCINE 5,000 UNIT/ML 1 ML VIAL SQ SCH ×2 (09:50→20:47)
[2018-11-16] MEDS: PANTOPRAZOLE 40 MG/10 ML VIAL IV SCH ×2 (10:23→20:47)
[2018-11-16] MEDS: THIAMINE 100 MG TAB PO SCH ×2 (12:14→18:14)
--- NOTE | 2018-11-16 18:05 | P.CONS ---
History of Present Illness - Reason for Consult Consult date: 11/16/18 Colitis Requesting physician: Saqib Givens - Chief Complaint Blood per rectum - History of Present Illness 52-year-old male with a past medical history significant for hypertension, prior hernia repair, nicotine dependence, history of heavy alcohol intake and DJD who presented with complaints of abdominal pain and blood per rectum. The patient reports abdominal pain predominantly in his lower abdomen. He describes it as diffuse and sharp in quality with no radiation. The pain is currently improved. The patient also reports 3 days during which he had bloody bowel movements in association with the abdominal pain. He denies any previous episodes of similar symptoms. He denies any nausea or vomiting in association with the symptoms. No sick contacts, or unusual foods, or change in his medications. He does report very occasional use of nonsteroidal anti-inflammatory drugs. On presentation to the hospital hemoglobin was found to be 16 and subsequently tren ded to 15.1. Total bilirubin 0.9, alkaline phosphatase 104, AST 33 and ALTs 33. Stool testing was positive for occult blood. The patient had a computed tomography scan of the abdomen which showed colitis from the cecum to the sigmoid colon. The patient reports 2 colonoscopies in the past with the first significant for polypectomy in the second approximately 3 years ago which she reports was normal. Review of Systems REVIEW OF SYSTEMS: CONSTITUTIONAL: Denies any fevers, chills, weight change or fatigue. CARDIOVASCULAR: Denies any chest pain, palpitations high or low blood pressures RESPIRATORY: Denies any shortness of breath, hemoptysis or cough. GENITOURINARY: No dysuria or hematuria. MUSCULOSKELETAL: No weakness reported. SKIN: Denies any new rashes or lesions, jaundice or pallor. PSYCHIATRIC: Denies any depression or anxiety. NEUROLOGY: Denies headache, denies any new focal deficits. EARS/NOSE/THROAT: No recent hearing change, congestion, nasal discharge or sore throat. EYES: No pain in eyes, discharge or change in vision. GASTROINTESTINAL: As per HPI. Past Medical History Past Medical History: Hypertension, Osteoarthritis (OA) History of Any Multi-Drug Resistant Organisms: None Reported Past Surgical History: Hernia Repair Additional Past Surgical History / Comment(s): Laparotomy, hernia repair with mesh by Dr. Gaytan Past Anesthesia/Blood Transfusion Reactions: No Reported Reaction Past Psychological History: No Psychological Hx Reported Smoking Status: Current every day smoker Past Alcohol Use History: Daily, Heavy Past Drug Use History: None Reported - Past Family History Mother Family Medical History: Cancer Additional Family Medical History / Comment(s): lung cancer Father Family Medical History: Diabetes Mellitus Medications and Allergies Home Medications Medication Instructions Recorded Confirmed Type Multivitamins, Thera [Multivitamin 1 tab PO DAILY 08/10/17 11/15/18 History (formulary)] amLODIPine [Norvasc] 5 mg PO DAILY 11/15/18 11/15/18 History Allergies Allergy/AdvReac Type Severity Reaction Status Date / Time No Known Allergies Allergy Verified 11/15/18 12:49 Physical Exam Vitals: Vital Signs Temp Pulse Pulse Resp BP Pulse Ox 11/16/18 12:35 97.4 F L 93 20 168/94 97 11/16/18 09:51 16 11/16/18 08:35 97.7 F 89 17 161/85 95 11/16/18 05:00 98 F 90 16 168/75 94 L 11/15/18 21:10 16 11/15/18 21:00 97.6 F 94 16 169/82 93 L 11/15/18 18:12 98.3 F 103 H 20 174/90 96 Intake and Output 11/16/18 11/16/18 11/16/18 06:59 14:59 22:59 Intake Total 1350 Balance 1350 Intake: Intake, IV Titration 850 Amount Levofloxacin 500Mg-D5w 50 Pmx 500 mg In Dextrose/ Water 1 100ml.bag @ 100 mls/hr IVPB Q24H VALERI Rx#: [id number] Sodium Chloride 0.9% 1, 700 000 ml @ 100 mls/hr IV . Q10H STA Rx#:[id number] metroNIDAZOLE-NS PMX 500 100 mg In Saline 1 100ml.bag @ 100 mls/hr IVPB Q8H VALERI Rx#:[id number] Oral 500 Other: Voiding Method Toilet # Voids 3 On physical examination, patient appears comfortable in no apparent distress. HEAD: Normocephalic, atraumatic. EYES: No scleral icterus. No conjunctival injection. MOUTH: No lesions, tongue midline. NECK: Trachea midline, no gross abnormalities. CHEST: Clear to auscultation with no wheezing or rhonchi appreciated. HEART: Regular rate and rhythm. ABDOMEN: Soft, obese. Bowel sounds are positive. No organomegaly. No guarding or rigidity. EXTREMITIES: No pedal edema. SKIN: No rashes, no jaundice. NEUROLOGIC: Alert and oriented x3. No focal deficits. Results CBC & Chem 7: 11/16/18 07:41 11/16/18 07:41 CT scan - abdomen: report reviewed (computed tomography scan of the abdomen which showed colitis from the cecum to the sigmoid colon) Assessment and Plan (1) Colitis Narrative/Plan: Patient presenting with symptoms of abdominal pain and CT findings of colitis from the cecum to the sigmoid colon, given the acuity of symptoms inflammatory bowel disease is less likely, and suspicion is for ischemic or infectious process. Current Visit: Yes Status: Acute Code(s): K52.9 - NONINFECTIVE GASTR OENTERITIS AND COLITIS, UNSPECIFIED SNOMED Code(s): 26160754 (2) Acute abdominal pain Narrative/Plan: Secondary to above. Current Visit: Yes Status: Acute Code(s): R10.9 - UNSPECIFIED ABDOMINAL PAIN SNOMED Code(s): 518081321 (3) GI bleed Narrative/Plan: Multiple episodes of bright red blood per rectum which has subsequently subsided. Current Visit: Yes Status: Acute Code(s): K92.2 - GASTROINTESTINAL HEMORRHAGE, UNSPECIFIED SNOMED Code(s): 95869331 Plan: Supportive care Clear liquid diet, advance to low fiber diet Agree with antibiotic therapy Stool studies pending Continue to monitor for signs or symptoms of GI bleeding Continue to monitor hemoglobin and transfuse as needed Plan for outpatient colonoscopy in 4-6 weeks for further evaluation Thank you for allowing us to participate in the care of the patient we will continue to follow
[2018-11-16] MEDS: LEVOFLOXACIN 500MG-D5W PMX 500 MG in DEXTROSE/WATER 1 100ML.BAG IVPB SCH (20:47)
[2018-11-17] MEDS: cloNIDine HCL 0.1 MG TAB PO SCH ×2 (01:21→07:46)
[2018-11-17 05:19] VITALS: BP 155/77; PULSE 83; RESP 16; TEMP 97.9
[2018-11-17] MEDS: SODIUM CHLORIDE 0.9% 1,000 ML IV SCH (06:21)
[2018-11-17] MEDS: metroNIDAZOLE-NS PMX 500 MG in SALINE 1 100ML.BAG IVPB SCH (06:21)
[2018-11-17 07:44] LABS: Basophils % (A) 0 %; Eosinophils # (A) 0.4 k/uL (0-0.7); Eosinophils % (A) 4 %; HCT 45.9 % (39.0-53.0); HGB 15.6 gm/dL (13.0-17.5); Lymphocytes # (A) 1.6 k/uL (1.0-4.8); Lymphocytes % (A) 17 %; MCH 31.5 pg (25.0-35.0); MCHC 33.9 g/dL (31.0-37.0); MCV 92.9 fL (80.0-100.0); Monocytes # (A) 0.5 k/uL (0-1.0); Monocytes % (A) 5 %; Neutrophils # (A) 6.9 k/uL (1.3-7.7); Neutrophils % (A) 72 %; Platelet Count 169 k/uL (150-450); RBC 4.94 m/uL (4.30-5.90); RDW 15.1 % (11.5-15.5); WBC 9.6 k/uL (3.8-10.6)
[2018-11-17] MEDS: amLODIPine 5 MG TAB PO SCH (07:46)
[2018-11-17] MEDS: HEPARIN SODIUM,PORCINE 5,000 UNIT/ML 1 ML VIAL SQ SCH (07:46)
[2018-11-17] MEDS: PANTOPRAZOLE 40 MG/10 ML VIAL IV SCH (07:46)
[2018-11-17] MEDS: NICOTINE 14MG/24HR PATCH TRANSDERM SCH (07:47)
[2018-11-17 08:01] LABS: ALT 28 U/L (21-72); AST 32 U/L (17-59); Albumin 4.1 g/dL (3.5-5.0); Alkaline Phosphatase 106 U/L (38-126); Anion Gap 9 mmol/L; Blood Urea Nitrogen 8 mg/dL (9-20); Calcium 9.5 mg/dL (8.4-10.2); Carbon Dioxide 25 mmol/L (22-30); Chloride 103 mmol/L (98-107); Glucose 105 mg/dL (74-99); Potassium 4.4 mmol/L (3.5-5.1); Sodium 137 mmol/L (137-145); Total Bilirubin 0.7 mg/dL (0.2-1.3); Total Protein 7.4 g/dL (6.3-8.2)
--- NOTE | 2018-11-17 09:14 | PN ---
PROGRESS NOTE DATE OF SERVICE: 11/16/2018. This 52-year-old gentleman admitted with acute colitis on IV antibiotics. Patient improved significantly. No chest pain. No palpitations. No fever. Gastroenterology evaluated the patient closely. PHYSICAL EXAM: Alert and oriented x3. The pulse is 93, blood pressure is 160/94, respiration 20, temperature 97.4, pulse ox 95% on room air. HEENT: Conjunctivae normal. NECK: No jugular venous distention. CARDIOVASCULAR: S1, S2 muffled. Respirations: Breath sounds diminished in the bases. Bilateral scattered rhonchi and crackles. Abdomen is soft, nontender. Legs are no edema. No focal deficits. LABS: At this time shows WBC 9.2, hemoglobin 15.1. ASSESSMENT: 1. Acute abdominal pain with diffuse colitis, possibly infectious colitis versus ischemic colitis. 2. History of ETOH. 3. Hypertension. 4. History early ETOH withdrawal. 5. Increased creatinine kinase. 6. Increased WBC. 7. Degenerative joint disease. 8. History of hernia repair. 9. History of laparotomy. 10.History of nicotine dependence, continued ongoing. 11.FULL CODE. RECOMMENDATIONS AND DISCUSSION: Recommend to continue current medications, symptomatic treatment, management. Continue with antibiotics. Patient seems to be improving and closely follow with Dr. Reich. Otherwise, I would also recommend to initiate clonidine. Monitor current regimen. Further recommendations to follow. MMODL / IJN: [id number] /
[2018-11-17] MEDS: THIAMINE 100 MG TAB PO SCH (11:38)
[2018-11-17] MEDS ORDERED: INFLUENZA VACCINE (6 MOS+) 60 MCG/0.5 ML SYRINGE IM ONE (12:14)
[2018-11-17] MEDS ORDERED: PNEUMOCOCCAL VACC-PNEUMOVAX 23 25 MCG/0.5 ML VIAL IM ONE (12:16)
== END 2018-11-17 13:25 | disposition home or self-care (01) ==
LOC: EC 11:58 → 3NMEDONC 16:36
PROVIDERS: ADMIT Hospitalist; ATTEND Hospitalist
DX: K52.9 Noninfective gastroenteritis and colitis, unspecified (principal); F10.239 Alcohol dependence with withdrawal, unspecified; I10 Essential (primary) hypertension; M19.90 Unspecified osteoarthritis, unspecified site; D72.829 Elevated white blood cell count, unspecified; R74.8 Abnormal levels of other serum enzymes; F17.200 Nicotine dependence, unspecified, uncomplicated; Z79.899 Other long term (current) drug therapy; Z86.010 Personal history of colon polyps; Z80.1 Family history of malignant neoplasm of trachea, bronchus and lung; Z83.3 Family history of diabetes mellitus; Z23 Encounter for immunization
CPT/HCPCS: 96376 ×2; 96361 ×3; 96365; 96366 ×2; 96367; 96372 ×3; 96375 ×2; 99285; 36415; 86900; 86901; 80053 ×3; 82150; 82550; 83605; 83690; 85025 ×3; 86850; 82272; 81003; 87040; 71045; 74019; 74177; 90732; 90686; G0378 ×3; G0008; G0009; J1644 ×3; J1956 ×2; C9113 ×3; Q9967

== ENCOUNTER 2018-12-30 10:06 | Emergency (ER) | payer OTHER ==
[2018-12-30 10:14] VITALS: BP 154/83; PULSE 108; RESP 18; TEMP 98.4
--- NOTE | 2018-12-30 10:53 | XR ---
EXAMINATION TYPE: XR knee complete RT , 3 VIEWS DATE OF EXAM ORDERED: 12/30/2018 HISTORY: Pain. COMPARISON: Previous study dated 11/25/2016. FINDINGS: Joint spaces are reasonably well-maintained. No fracture, dislocation or knee joint effusi on is seen. IMPRESSION: NO ACUTE OSSEOUS LESION.
[2018-12-30] MEDS ORDERED: Acetaminophen-Codeine 300-30mg TAB PO STA (10:58)
--- NOTE | 2018-12-30 11:01 | ED ---
Lower Extremity Injury HPI - General Chief Complaint: Extremity Injury, Lower Stated Complaint: Knee pain Time Seen by Provider: 12/30/18 10:16 Source: patient Mode of arrival: ambulatory Limitations: no limitations - History of Present Illness Initial Comments: 53-year-old male presented for chief complaint of right anterior knee pain. Patient states that he was counted steps she states they're pretty steep and that he came to the bottom missing the bottom step coming down on his right knee. He states he then came down the left knee however does not have left knee pain he states the pain is localized to the right anterior knee. Patient does have small abrasion he denies any drawing of blood. Patient denies any pain at the ankle or the hip he denies any head injury or injury to the neck or back. Patient denies any numbness tingling loss sensation coolness or pallor of the extremities he denies dislocation. Remaining review of systems negative upon arrival patient's and laboratory he does appear well he is able to weight-bear. - Related Data Home Medications Medication Instructions Recorded Confirmed Multivitamins, Thera [Multivitamin 1 tab PO DAILY 08/10/17 11/15/18 (formulary)] amLODIPine [Norvasc] 5 mg PO DAILY 11/15/18 11/15/18 Previous Rx's Medication Instructions Recorded Ciprofloxacin HCl [Cipro] 500 mg PO Q12H 3 Days #6 tab 11/17/18 Nicotine 14Mg/24Hr Patch [Habitrol] 1 patch TRANSDERM DAILY patch 11/17/18 cloNIDine HCL [Catapres] 0.1 mg PO TID #90 tab 11/17/18 metroNIDAZOLE [Flagyl] 500 mg PO Q8HR #15 tab 11/17/18 Allergies Allergy/AdvReac Type Severity Reaction Status Date / Time No Known Allergies Allergy Verified 12/30/18 10:15 Review of Systems ROS Statement: Those systems with pertinent positive or pertinent negative responses have been documented in the HPI. ROS Other: All systems not noted in ROS Statement are negative. Past Medical History Past Medical History: Hypertension, Osteoarthritis (OA) History of Any Multi-Drug Resistant Organisms: None Reported Past Surgical History: Hernia Repair Additional Past Surgical History / Comment(s): Laparotomy, hernia repair with mesh by Dr. Gaytan Past Anesthesia/Blood Transfusion Reactions: No Reported Reaction Past Psychological History: No Psychological Hx Reported Smoking Status: Current every day smoker Past Alcohol Use History: Daily, Heavy Past Drug Use History: None Reported - Past Family History Mother Family Medical History: Cancer Additional Family Medical History / Comment(s): lung cancer Father Family Medical History: Diabetes Mellitus General Exam - General Exam Comments Initial Comments: General: The patient is awake and alert, in no distress, and does not appear acutely ill. Eye: Pupils are equal, round and reactive to light, extra-ocular movements are intact. No nystagmus. There is normal conjunctiva bilaterally. No signs of icterus. Ears, nose, mouth and throat: There are moist mucous membranes and no oral lesions. Neck: The neck is supple, there is no tenderness or JVD. Cardiovascular: There is a regular rate and rhythm. No murmur, rub or gallop is appreciated. Respiratory: Lungs are clear to auscultation, respirations are non-labored, breath sounds are equal. No wheezes, stridor, rales, or rhonchi. Musculoskeletal: Upon inspection of the knees bilaterally there is very superficial abrasion of the right knee. No evidence of bleeding deeper laceration or bleeding. No scabbing. Extensor mechanism intact bilaterally Upon Normal ROM of the knees and hips ankles bilaterally, no tenderness of the left knee however there is tenderness with flexion of the right knee. Strength 5/5. Sensation intact of proximal distal to injury site. DP pulses equal bilaterally 2+. No evidence of footdrop. Compartments soft and compressible. Neurological: A&O x 3. CN II-XII intact, There are no obvious motor or sensory deficits. Coordination appears grossly intact. Speech is normal. Skin: Skin is warm and dry and no rashes or lesions are noted. Psychiatric: Cooperative, appropriate mood & affect, normal judgment. Limitations: no limitations Course Vital Signs 12/30/18 10:12 Temperature 98.4 F Pulse Rate 108 H Respiratory 18 Rate Blood Pressure 154/83 O2 Sat by Pulse 97 Oximetry Medical Decision Making - Medical Decision Making Very well-appearing 53-year-old male presenting for right anterior knee pain. Patient had direct trauma to the site. There is no significant soft tissue swelling. No laceration or significant abrasion. Patient is able to extend at the knee and range. Patient is able to weight-bear. At this time feel patient has a superficial injury however we cannot exclude injury to the ligaments or tendons. Patient placed in knee immobilizer and given follow-up with his orthopedic surgeon who has established care with Dr. Maldonado. Patient is to take ibuprofen and Tylenol for pain management. Ice elevate and rest right knee. Return parameters were discussed as well as importance of follow-up patient verbalizes understanding Disposition Clinical Impression: Right knee injury, Fall, Anterior knee pain Disposition: HOME SELF-CARE Condition: Good Instructions (If sedation given, give patient instructions): Knee Pain (ED) Additional Instructions: Please use medication as discussed. Please follow-up with family doctor in the next 2 days. Please follow-up with Dr Junior. Please return to emergency room if the symptoms increase or worsen or for any other concerns. Is patient prescribed a controlled substance at d/c from ED?: No Referrals: Morales Adorno MD [Primary Care Provider] - 1-2 days Dano Maldonado MD [STAFF PHYSICIAN] - 1-2 days Time of Disposition: 11:00
== END 2018-12-30 11:14 | disposition home or self-care (01) ==
LOC: EC 10:06
DX: S80.211A Abrasion, right knee, initial encounter (principal); I10 Essential (primary) hypertension; F17.200 Nicotine dependence, unspecified, uncomplicated; Z79.899 Other long term (current) drug therapy; W19.XXXA Unspecified fall, initial encounter
CPT/HCPCS: 99283

== ENCOUNTER 2019-02-20 20:40 | Inpatient (IN) | payer OTHER ==
[2019-02-20] MEDS ORDERED: KETOROLAC 30 MG/ML 1 ML VIAL IM STA (21:03)
[2019-02-20] MEDS ORDERED: KETOROLAC 30 MG/ML 1 ML VIAL IVP STA (21:19)
--- NOTE | 2019-02-20 21:43 | XR ---
EXAM: XR Right Toe(s), 2 or More Views CLINICAL HISTORY: ITS.REASON XR Reason: Infection TECHNIQUE: Frontal, lateral and oblique views of toe(s) of the right foot. COMPARISON: No relevant prior studies available. FINDINGS: Bones/joints: There appears be a mildly displaced comminuted fracture through the tuft of the first distal phalanx. There is associated soft tissue swelling. No dislocation. Soft tissues: See above. IMPRESSION: Mildly displaced and comminuted fracture to the tuft of the first distal phalanx.
[2019-02-20 21:59] LABS: Basophils # (A) 0.1 k/uL (0-0.2); Basophils % (A) 0 %; Eosinophils # (A) 0.5 k/uL (0-0.7); Eosinophils % (A) 4 %; HCT 43.7 % (39.0-53.0); HGB 14.8 gm/dL (13.0-17.5); Lymphocytes # (A) 1.7 k/uL (1.0-4.8); Lymphocytes % (A) 14 %; MCH 31.8 pg (25.0-35.0); MCHC 33.9 g/dL (31.0-37.0); MCV 93.8 fL (80.0-100.0); Mean Platelet Volume 7.1; Monocytes # (A) 0.6 k/uL (0-1.0); Monocytes % (A) 5 %; Neutrophils # (A) 9.3 k/uL (1.3-7.7); Neutrophils % (A) 75 %; Platelet Count 204 k/uL (150-450); RBC 4.66 m/uL (4.30-5.90); RDW 13.4 % (11.5-15.5); WBC 12.3 k/uL (3.8-10.6)
[2019-02-20 22:09] LABS: ALT 28 U/L (21-72); AST 29 U/L (17-59); African American GFR (CKD) >90 (>60 ml/min/1.73 sqM); Albumin 4.5 g/dL (3.5-5.0); Alkaline Phosphatase 113 U/L (38-126); Anion Gap 12 mmol/L; Blood Urea Nitrogen 15 mg/dL (9-20); Calcium 9.6 mg/dL (8.4-10.2); Carbon Dioxide 24 mmol/L (22-30); Chloride 103 mmol/L (98-107); Glucose 93 mg/dL (74-99); Potassium 3.8 mmol/L (3.5-5.1); Sodium 139 mmol/L (137-145); Total Bilirubin 0.6 mg/dL (0.2-1.3); Total Protein 7.8 g/dL (6.3-8.2)
[2019-02-20] MEDS ORDERED: NALOXONE 0.4 MG/ML 1 ML VIAL IV PRN (22:24)
[2019-02-20] MEDS ORDERED: ACETAMINOPHEN TAB 325 MG TAB PO PRN (22:24)
[2019-02-20] MEDS ORDERED: PIPERACILLIN-TAZOBACTAM 3.375 GM in SODIUM CHLORIDE 0.9% 100 ML IVPB STA (22:34)
[2019-02-20] MEDS ORDERED: VANCOMYCIN IV PER PHARMACY 1 EACH MISC MISCELLANE PRN (22:34)
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
[2019-02-20] MEDS: SODIUM CHLORIDE 0.9% 1,000 ML IV SCH (22:59)
[2019-02-20] MEDS: MORPHINE SULFATE 4 MG/ML SYRINGE IV PRN (22:59)
[2019-02-20] MEDS ORDERED: VANCOMYCIN 1,500 MG in SODIUM CHLORIDE 0.9% 250 ML IVPB ONE (23:00)
[2019-02-20] MEDS ORDERED: amLODIPine 5 MG TAB PO STA (23:15)
[2019-02-21 06:26] LABS: Basophils # (A) 0.1 k/uL (0-0.2); Basophils % (A) 1 %; Eosinophils # (A) 0.6 k/uL (0-0.7); Eosinophils % (A) 6 %; HGB 13.5 gm/dL (13.0-17.5); Lymphocytes # (A) 2.3 k/uL (1.0-4.8); Lymphocytes % (A) 25 %; MCH 31.2 pg (25.0-35.0); MCHC 32.9 g/dL (31.0-37.0); MCV 95.1 fL (80.0-100.0); Mean Platelet Volume 7.4; Monocytes # (A) 0.6 k/uL (0-1.0); Monocytes % (A) 7 %; Neutrophils # (A) 5.7 k/uL (1.3-7.7); Neutrophils % (A) 60 %; Platelet Count 190 k/uL (150-450); RBC 4.31 m/uL (4.30-5.90); RDW 13.3 % (11.5-15.5); WBC 9.4 k/uL (3.8-10.6)
[2019-02-21] MEDS ORDERED: KETOROLAC 30 MG/ML 1 ML VIAL IM SCH (12:15)
[2019-02-21] MEDS: VANCOMYCIN 1,500 MG in SODIUM CHLORIDE 0.9% 250 ML IVPB SCH ×2 (12:18→22:23)
[2019-02-21] MEDS: MULTIVITAMINS, THERA 1 EACH TAB PO SCH (12:23)
[2019-02-21] MEDS: amLODIPine 5 MG TAB PO SCH (12:23)
[2019-02-21] MEDS: KETOROLAC 30 MG/ML 1 ML VIAL IVP SCH ×3 (12:24→22:24)
[2019-02-21] MEDS: FAMOTIDINE 20 MG TAB PO SCH ×2 (12:26→20:23)
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
[2019-02-21] MEDS ORDERED: LIDOCAINE 1% INJ 10MG/ML (20 ML MDV) SQ ONE (15:03)
[2019-02-21] MEDS: HEPARIN SODIUM,PORCINE 5,000 UNIT/ML 1 ML VIAL SQ SCH ×2 (18:50→22:24)
[2019-02-21] MEDS: MORPHINE SULFATE 4 MG/ML SYRINGE IV PRN (20:23)
[2019-02-21] MEDS: SODIUM CHLORIDE 0.9% 1,000 ML IV SCH (20:24)
[2019-02-22] MEDS: MORPHINE SULFATE 4 MG/ML SYRINGE IV PRN ×4 (01:09→20:43)
[2019-02-22] MEDS: KETOROLAC 30 MG/ML 1 ML VIAL IVP SCH ×3 (06:02→18:33)
[2019-02-22] MEDS: amLODIPine 5 MG TAB PO SCH (08:15)
[2019-02-22] MEDS: FAMOTIDINE 20 MG TAB PO SCH ×2 (08:15→19:45)
[2019-02-22] MEDS: MULTIVITAMINS, THERA 1 EACH TAB PO SCH (08:15)
[2019-02-22] MEDS: HEPARIN SODIUM,PORCINE 5,000 UNIT/ML 1 ML VIAL SQ SCH ×2 (08:15→15:06)
[2019-02-22] MEDS: SODIUM CHLORIDE 0.9% 1,000 ML IV SCH ×2 (09:12→13:37)
[2019-02-22] MEDS ORDERED: VANCOMYCIN TROUGH DUE 1 EACH MISC MISCELLANE ONE (10:00)
[2019-02-22] MEDS: VANCOMYCIN 1,500 MG in SODIUM CHLORIDE 0.9% 250 ML IVPB SCH (11:12)
--- NOTE | 2019-02-22 13:12 | P.PN ---
Subjective Patient presented with nearly attachment and infection of the right great toe with a fracture. Patient was evaluated by orthopedic surgery and the patient may end up needing incision and drainage presently wound cultures are showing polymicrobial organisms including gram-positive cocci gram-negative bacilli. Patient is on vancomycin as well as a Zosyn which will be continued Constitutional: Denied any fatigue denied any fever. Cardio vascular: denied any chest pain, palpitations Gastrointestinal denied any nausea vomiting Pulmonary: Denied any shortness of breath cough Neurologic denied any new focal deficits All inpatient medications were reviewed and appropriate changes in these medications as dictated in the interval history and assessment and plan. Objective - Vital Signs Vital signs: Vital Signs Temp 97.6 F 02/22/19 07:24 Pulse 79 02/22/19 11:51 Resp 18 02/22/19 11:51 BP 160/88 02/22/19 07:24 Pulse Ox 95 02/22/19 07:24 Intake & Output 02/21/19 02/22/19 02/22/19 18:59 06:59 18:59 Intake Total 1076 860 Balance 1076 860 Intake: Oral 876 660 Other 200 200 Other: Voiding Method Toilet Toilet Toilet # Voids 1 1 - Exam PHYSICAL EXAMINATION: GENERAL: The patient is alert and oriented x3, not in any acute distress. Well developed, well nourished. HEENT: Pupils are round and equally reacting to light. EOMI. No scleral icterus. No conjunctival pallor. Normocephalic, atraumatic. No pharyngeal erythema. No thyromegaly. CARDIOVASCULAR: S1 and S2 present. No murmurs, rubs, or gallops. PULMONARY: Chest is clear to auscultation, no wheezing or crackles. ABDOMEN: Soft, nontender, nondistended, normoactive bowel sounds. No palpable organomegaly. MUSCULOSKELETAL: No joint swelling or deformity. EXTREMITIES: Right great toe is partially detached patient does appear to have redness did not see any pus which was cleaned probably local is of temperature significant swelling of the right toe. Patient's wound is packed NEUROLOGICAL: Gross neurological examination did not reveal any focal deficits. SKIN: No rashes. - Labs CBC & Chem 7: 02/21/19 06:10 02/20/19 21:45 Labs: Microbiology - Last 24 Hours (Table) 02/20/19 21:45 Blood Culture - Preliminary Blood No Growth after 24 hours 02/20/19 23:30 Gram Stain - Preliminary Toe - Right First Wound Culture - Preliminary Assessment and Plan Plan: -Cellulitis, possible abscess of the right great toe: Patient was started on vancomycin and cultures were obtained IV fluids will be continued pain management with Toradol. Patient was a valid by arthritic surgery, has gram-positive cocci as well as gram-negative bacilli. I will add either cefepime on Zosyn -Fracture of the right great toe: Orthopedic surgery was consulted -Hypertension Patient will need pharmacologic prophylaxis may need DVT prophylaxis will patient probably needs to pain patient
[2019-02-22] MEDS: CEFEPIME 2 GM in SODIUM CHLORIDE 0.9% 100 ML IVPB SCH (14:28)
--- NOTE | 2019-02-22 15:23 | P.PN ---
Subjective Progress Note Date: 02/22/19 Principal diagnosis: Open tuft fracture right great toe with partial nail avulsion with infection The patient is a 53-year-old male who we've been following for a right great toe open fracture. Patient was evaluated at bedside today. He states that his toe pain has improved and he is feeling well today. He denies fever, chills, or rigors. He has been evaluated by infectious disease, Dr. Brunson. Cefepime has been added along with Vanco and his dressing changes have been changed to Aquacel. Objective - Vital Signs Vital signs: Vital Signs Temp 97.6 F 02/22/19 07:24 Pulse 79 02/22/19 11:51 Resp 18 02/22/19 11:51 BP 160/88 02/22/19 07:24 Pulse Ox 95 02/22/19 07:24 Intake & Output 02/21/19 02/22/19 02/22/19 18:59 06:59 18:59 Intake Total 1076 860 Balance 1076 860 Intake: Oral 876 660 Other 200 200 Other: Voiding Method Toilet Toilet Toilet # Voids 1 1 - Exam The patient is a 53-year-old male who is in no acute distress. He is alert and oriented 3. The dressing to the right great toe is clean, dry, and intact. There is no shadowing or strikethrough. Dressing was removed and Aquacel rope in place. The wound bed looks cleaners than yesterday. No obvious purulence noted. He is able to move his toe with minimal discomfort. There is pain to palpation to the tip of the toe and the pulp of the toe is soft. Neurological status is intact. Foot is warm and well perfused. Capillary refill less than 2 seconds. - Labs CBC & Chem 7: 02/21/19 06:10 02/20/19 21:45 Labs: Microbiology - Last 24 Hours (Table) 02/20/19 21:45 Blood Culture - Preliminary Blood No Growth after 24 hours 02/20/19 23:30 Gram Stain - Preliminary Toe - Right First Wound Culture - Preliminary Assessment and Plan (1) Cellulitis of right foot Current Visit: Yes Status: Acute Code(s): L03.115 - CELLULITIS OF RIGHT LOWER LIMB SNOMED Code(s): 946351383 (2) Fracture of right great toe Current Visit: Yes Status: Acute Code(s): S92.401A - DISPLACED UNSP FRACTURE OF RIGHT GREAT TOE, INIT FOR CLOS FX SNOMED Code(s): 666467112 (3) Hypertension Current Visit: Yes Status: Acute Code(s): I10 - ESSENTIAL (PRIMARY) HYPERTENSION SNOMED Code(s): 82284334 Plan: The clinical and x-ray findings were discussed with the patient. The case was discussed with Dr. Harry. Continue pain control. Continue IV antibiotics per infectious disease. We're awaiting final cultures. Continue dressing changes per Infectious disease. No surgical intervention is planned at this point due to improvement of the patient's wound. We will continue to follow patient closely and make further recommendations if needed.
[2019-02-22] MEDS ORDERED: PIPERACILLIN-TAZOBACTAM 3.375 GM in SODIUM CHLORIDE 0.9% 100 ML IVPB SCH (16:00)
[2019-02-22] MEDS: VANCOMYCIN 1,750 MG in SODIUM CHLORIDE 0.9% 250 ML IVPB SCH (19:46)
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
[2019-02-23] MEDS: HEPARIN SODIUM,PORCINE 5,000 UNIT/ML 1 ML VIAL SQ SCH ×4 (00:10→23:36)
[2019-02-23] MEDS: KETOROLAC 30 MG/ML 1 ML VIAL IVP SCH ×5 (00:10→23:35)
[2019-02-23] MEDS: CEFEPIME 2 GM in SODIUM CHLORIDE 0.9% 100 ML IVPB SCH ×3 (00:10→23:35)
[2019-02-23] MEDS: SODIUM CHLORIDE 0.9% 1,000 ML IV SCH ×2 (05:50→17:47)
[2019-02-23 07:27] LABS: HGB 14.7 gm/dL (13.0-17.5); MCH 31.3 pg (25.0-35.0); MCHC 32.7 g/dL (31.0-37.0); MCV 95.7 fL (80.0-100.0); Mean Platelet Volume 7.3; Platelet Count 225 k/uL (150-450); RDW 13.2 % (11.5-15.5); WBC 8.7 k/uL (3.8-10.6)
[2019-02-23 07:46] LABS: African American GFR (CKD) >90 (>60 ml/min/1.73 sqM); Anion Gap 7 mmol/L; Blood Urea Nitrogen 14 mg/dL (9-20); Calcium 9.4 mg/dL (8.4-10.2); Carbon Dioxide 27 mmol/L (22-30); Chloride 103 mmol/L (98-107); Glucose 96 mg/dL (74-99); Potassium 4.5 mmol/L (3.5-5.1); Sodium 137 mmol/L (137-145)
[2019-02-23] MEDS: VANCOMYCIN 1,750 MG in SODIUM CHLORIDE 0.9% 250 ML IVPB SCH (07:55)
[2019-02-23] MEDS: MULTIVITAMINS, THERA 1 EACH TAB PO SCH (07:55)
[2019-02-23] MEDS: FAMOTIDINE 20 MG TAB PO SCH ×2 (07:55→20:09)
[2019-02-23] MEDS: amLODIPine 5 MG TAB PO SCH (07:55)
[2019-02-23] MEDS: NICOTINE 21MG/24HR PATCH TRANSDERM SCH (12:53)
--- NOTE | 2019-02-23 13:09 | P.PN ---
Progress Note - Text Progress Note Date: 02/23/19 Patient is a pleasant 53-year-old male who is seen and examined at the bedside for follow-up evaluation in regards to a right great toe infection. Since his admission to the hospital he feels his symptoms have continued to improve. He is not experiencing any significant swelling at the right foot or ankle which he was previously. His right great toe pain is well-controlled except if he happens to bump the toe. He has active range of motion of other toes of the right foot without difficulty. He is known to have an open tuft fracture of the right great toe with partial nail avulsion and infection. He continues to be seen by Dr. Brunson infectious disease. He is currently receiving cefepime and vancomycin IV along with dressing changes with Aquacel. Patient feels he is improving is hoping to be discharged home today if cleared by other medical providers. He has a history of hypertension. He continues to be followed by medicine. Physical Exam: Patient is awake, alert, and oriented 3 Vital signs stable Good chest excursion with deep inspiration and expiration Dressing over the right toe is clean, dry, and intact No obvious drainage at the dressing site Dressing remains intact Patient is able to wiggle all toes of the right foot without significant difficulty Neurovascular intact right lower extremity No significant swelling of the right foot or right ankle No signs or symptoms of DVT; no calf pain Assessment: Open tuft fracture of the right great toe with partial nail avulsion and infection Cellulitis of the right foot History of hypertension Plan: 1. Patient will continue conservative treatment at this time. Patient continues to be seeing him by Dr. Brunson in infectious disease who is monitoring his IV antibiotic regimen. Final culture results are pending. We're not currently planning for surgical intervention and his right great toe. We would recommend continuing with daily dressing changes per infectious disease instructions. Patient will continue with antibiotics at the discretion of infectious disease. At this time, patient is cleared for discharge from an orthopedic standpoint. Patient will plan to follow up with Dr. Harry in 1 week at [facility] for further evaluation. Patient is encouraged to avoid excessive activities with the right foot, specifically the right great toe. Keep dressing over the right great toe clean, dry, and intact. 2. Patient will continue to be seen in exam by infectious disease and medicine.
--- NOTE | 2019-02-23 14:30 | P.DS ---
Providers Date of admission: 02/22/19 11:30 Attending physician: Saqib Givens Consults: 02/21/19 12:11 Consult Physician Routine Consulting Provider: Camden Harry Consult Reason/Comments: right great toe fracture Do you want consulting provider notified?: Yes 02/22/19 13:08 Consult Physician Routine Consulting Provider: Azar Brunson Consult Reason/Comments: Infected toe Do you want consulting provider notified?: Yes Primary care physician: Tila Nielsen [facility] Course: Patient presented with nearly attachment and infection of the right great toe with a fracture. Patient was evaluated by orthopedic surgery and the patient may end up needing incision and drainage presently wound cultures are showing polymicrobial organisms including gram-positive cocci gram-negative bacilli. Patient is on vancomycin as well as a Zosyn which will be continued 02/23/2019 Patient's wound cultures are not finalized yet. If they're finalized today patient will be discharged home with antibiotics local wound care patient is not requiring incision and drainage of the week surgery evaluated the patient and follow him as an outpatient local wound care instructions by infectious disease and orthopedic surgery. .PHYSICAL EXAMINATION: GENERAL: The patient is alert and oriented x3, not in any acute distress. Well developed, well nourished. HEENT: Pupils are round and equally reacting to light. EOMI. No scleral icterus. No conjunctival pallor. Normocephalic, atraumatic. No pharyngeal erythema. No thyromegaly. CARDIOVASCULAR: S1 and S2 present. No murmurs, rubs, or gallops. PULMONARY: Chest is clear to auscultation, no wheezing or crackles. ABDOMEN: Soft, nontender, nondistended, normoactive bowel sounds. No palpable organomegaly. MUSCULOSKELETAL: No joint swelling or deformity. EXTREMITIES: Right great toe is partially detached patient does appear to have redness did not see any pus which was cleaned probably local is of temperature significant swelling of the right toe. Patient's wound is packed NEUROLOGICAL: Gross neurological examination did not reveal any focal deficits. SKIN: No rashes. Assessment and Plan Plan: -Cellulitis, possible abscess of the right great toe: Discussed above -Fracture of the right great toe: Orthopedic surgery not recommending any operative intervention -Hypertension Patient will need pharmacologic prophylaxis may need DVT prophylaxis will patient probably needs to pain patient Patient Condition at Discharge: Serious Plan - Discharge Summary New Discharge Prescriptions: New Nicotine 21Mg/24Hr Patch [Habitrol] 1 patch TRANSDERM DAILY #7 patch Ibuprofen [Motrin] 400 mg PO Q8HR PRN #30 tab PRN Reason: Pain Famotidine [Pepcid] 20 mg PO BID #30 tab Continue Multivitamins, Thera [Multivitamin (formulary)] 1 tab PO DAILY Changed amLODIPine [Norvasc] 10 mg PO DAILY #0 Discharge Medication List Multivitamins, Thera [Multivitamin (formulary)] 1 tab PO DAILY 02/20/19 [History] Famotidine [Pepcid] 20 mg PO BID #30 tab 02/23/19 [Rx] Ibuprofen [Motrin] 400 mg PO Q8HR PRN #30 tab 02/23/19 [Rx] Nicotine 21Mg/24Hr Patch [Habitrol] 1 patch TRANSDERM DAILY #7 patch 02/23/19 [Rx] amLODIPine [Norvasc] 10 mg PO DAILY #0 02/23/19 [Rx] Follow up Appointment(s)/Referral(s): Morales Adorno MD [Primary Care Provider] - 1-2 days Camden Harry DO [Medical Doctor] - 1 Week Azar Brunson MD [STAFF PHYSICIAN] - 1 Week Activity/Diet/Wound Care/Special Instructions: 1. Patient is encouraged to avoid excessive activities with the right foot is specifically the right great toe. 2. Keep dressing over the right great toe clean, dry, and intact. 3. Continue with dressing changes as set forth by infectious disease.
[2019-02-23] MEDS: ALPRAZolam 0.25 MG TAB PO PRN ×2 (16:07→20:09)
[2019-02-23] MEDS: MORPHINE SULFATE 4 MG/ML SYRINGE IV PRN (20:08)
[2019-02-23] MEDS: VANCOMYCIN 1,750 MG in SODIUM CHLORIDE 0.9% 500 ML 500 ML IVPB SCH (20:09)
[2019-02-24] MEDS: KETOROLAC 30 MG/ML 1 ML VIAL IVP SCH ×2 (05:25→11:46)
[2019-02-24] MEDS: SODIUM CHLORIDE 0.9% 1,000 ML IV SCH (05:27)
[2019-02-24] MEDS ORDERED: VANCOMYCIN TROUGH DUE 1 EACH MISC MISCELLANE ONE (07:00)
[2019-02-24 08:16] VITALS: BP 163/91; PULSE 82; RESP 16; TEMP 98.2
[2019-02-24] MEDS: NICOTINE 21MG/24HR PATCH TRANSDERM SCH (08:29)
[2019-02-24] MEDS: HEPARIN SODIUM,PORCINE 5,000 UNIT/ML 1 ML VIAL SQ SCH (08:29)
[2019-02-24] MEDS: MULTIVITAMINS, THERA 1 EACH TAB PO SCH (08:29)
[2019-02-24] MEDS: ALPRAZolam 0.25 MG TAB PO PRN (08:29)
[2019-02-24] MEDS: FAMOTIDINE 20 MG TAB PO SCH (08:29)
[2019-02-24] MEDS: VANCOMYCIN 1,750 MG in SODIUM CHLORIDE 0.9% 500 ML 500 ML IVPB SCH (08:29)
[2019-02-24] MEDS ORDERED: amLODIPine 10 MG TAB PO SCH ×2 (09:00)
--- NOTE | 2019-02-24 12:39 | P.DS ---
Providers Date of admission: 02/22/19 11:30 Attending physician: Saqib Givens Consults: 02/21/19 12:11 Consult Physician Routine Consulting Provider: Camden Harry Consult Reason/Comments: right great toe fracture Do you want consulting provider notified?: Yes 02/22/19 13:08 Consult Physician Routine Consulting Provider: Azar Brunson Consult Reason/Comments: Infected toe Do you want consulting provider notified?: Yes Primary care physician: Tila Nielsen Hospital Course: Patient's wound cultures showed Aeromonas hydrophilia Klebsiella oxytoca 2 different strains and then not staph aureus, all of these organisms are sensitive to most antibiotics and patient is being discharged on Cipro and Keflex as recommended by infectious disease. .PHYSICAL EXAMINATION: GENERAL: The patient is alert and oriented x3, not in any acute distress. Well developed, well nourished. HEENT: Pupils are round and equally reacting to light. EOMI. No scleral icterus. No conjunctival pallor. Normocephalic, atraumatic. No pharyngeal erythema. No thyromegaly. CARDIOVASCULAR: S1 and S2 present. No murmurs, rubs, or gallops. PULMONARY: Chest is clear to auscultation, no wheezing or crackles. ABDOMEN: Soft, nontender, nondistended, normoactive bowel sounds. No palpable organomegaly. MUSCULOSKELETAL: No joint swelling or deformity. EXTREMITIES: Right great toe is partially detached patient does appear to have redness did not see any pus which was cleaned probably local is of temperature significant swelling of the right toe. Patient's wound is packed NEUROLOGICAL: Gross neurological examination did not reveal any focal deficits. SKIN: No rashes. Please refer to my dictation of discharge summary from yesterday for further details Patient Condition at Discharge: Serious Plan - Discharge Summary New Discharge Prescriptions: New Nicotine 21Mg/24Hr Patch [Habitrol] 1 patch TRANSDERM DAILY #7 patch Ibuprofen [Motrin] 400 mg PO Q8HR PRN #30 tab PRN Reason: Pain Famotidine [Pepcid] 20 mg PO BID #30 tab Ciprofloxacin HCl [Cipro] 500 mg PO Q12HR #20 tablet Cephalexin [Keflex] 500 mg PO Q6HR #40 cap Continue Multivitamins, Thera [Multivitamin (formulary)] 1 tab PO DAILY Changed amLODIPine [Norvasc] 10 mg PO DAILY #0 Discharge Medication List Multivitamins, Thera [Multivitamin (formulary)] 1 tab PO DAILY 02/20/19 [History] Famotidine [Pepcid] 20 mg PO BID #30 tab 02/23/19 [Rx] Ibuprofen [Motrin] 400 mg PO Q8HR PRN #30 tab 02/23/19 [Rx] Nicotine 21Mg/24Hr Patch [Habitrol] 1 patch TRANSDERM DAILY #7 patch 02/23/19 [Rx] amLODIPine [Norvasc] 10 mg PO DAILY #0 02/23/19 [Rx] Cephalexin [Keflex] 500 mg PO Q6HR #40 cap 02/24/19 [Rx] Ciprofloxacin HCl [Cipro] 500 mg PO Q12HR #20 tablet 02/24/19 [Rx] Follow up Appointment(s)/Referral(s): Morales Adorno MD [Primary Care Provider] - 1-2 days (Please call to make all appointments- offices are closed at this time) Camden Harry DO [Medical Doctor] - 1 Week (Please call for appointment date and time-office is closed) Azar Brunson MD [STAFF PHYSICIAN] - 1 Week (Please call for appointment date and time-office is closed) Patient Instructions/Handouts: Toe Fracture (DC), Cellulitis (DC) Activity/Diet/Wound Care/Special Instructions: 1. Patient is encouraged to avoid excessive activities with the right foot is specifically the right great toe. 2. Keep dressing over the right great toe clean, dry, and intact. 3. Continue with Aquacel silver dressing changes to the big toe wound 4. Patient to follow with Dr. Brunson in the wound care center, call [phone] on Monday to make an appointment Discharge Disposition: HOME SELF-CARE
== END 2019-02-24 12:54 | disposition home or self-care (01) | DRG 603 ==
LOC: EC 20:40 → 1SOBS 22:42 → OBSVTOIN 02-22 11:30
PROVIDERS: ADMIT Hospitalist; ATTEND Hospitalist
PROC: 0HBRXZZ Excision of Toe Nail, External Approach (ICD-10-PCS; principal; 2019-02-21)
DX: L03.115 Cellulitis of right lower limb (principal); M17.10 Unilateral primary osteoarthritis, unspecified knee; S92.421B Displaced fracture of distal phalanx of right great toe, initial encounter for open fracture; I10 Essential (primary) hypertension; W22.8XXA Striking against or struck by other objects, initial encounter; Y92.814 Boat as the place of occurrence of the external cause; F17.210 Nicotine dependence, cigarettes, uncomplicated; Z79.899 Other long term (current) drug therapy; Z80.1 Family history of malignant neoplasm of trachea, bronchus and lung; Z83.3 Family history of diabetes mellitus
CPT/HCPCS: 36415; 80048; 80053; 80202; 85025; 85027; 87040; 87070; 87077; 87186; 87205; 96365; 96375; 99284

== ENCOUNTER 2019-06-15 18:09 | Emergency (ER) | payer OTHER ==
[2019-06-15] MEDS ORDERED: KETOROLAC 60 MG/2 ML VIAL IM STA (18:49)
--- NOTE | 2019-06-15 18:56 | ED ---
General Adult HPI - General Chief complaint: Fall Stated complaint: Fall, shoulder and knee pain Time Seen by Provider: 06/15/19 18:14 Source: patient, RN notes reviewed, old records reviewed Mode of arrival: ambulatory Limitations: no limitations - History of Present Illness Initial comments: 53-year-old male patient presents to ED complaining of fall 2 days ago. Patient reports that he was walking up wooden stairs with wet shoes when he slipped and he landed on his left knee and left shoulder region. Denies trauma to head or neck. Denies falling down stairs. Patient reports that he has pain in his anterior patellar region as well as his left shoulder from fall. These main complaint. Patient is ambulatory without difficulty. Denies any other complaints at this time. Systemic: Pt denies fatigue, fever/chills, rash. Pt denies weakness, night sweats, weight loss. Neuro: Pt denies headache, visual disturbances, syncope or pre-syncope. HEENT: Pt denies ocular discharge or irritation, otalgia, rhinorrhea, pharyngitis or notable lymphadenopathy. Cardiopulmonary: Pt denies chest pain, SOB, heart palpitations, dyspnea on exer tion. Abdominal/GI: Pt denies abdominal pain, n/v/d. : Pt denies dysuria, burning w/ urination, frequency/urgency. Denies new onset urinary or bowel incontinence. MSK: Pt denies loss of strength or function in extremities. Neuro: Pt denies new onset weakness, paresthesias. - Related Data Home Medications Medication Instructions Recorded Confirmed Multivitamins, Thera [Multivitamin 1 tab PO DAILY 02/20/19 02/20/19 (formulary)] Previous Rx's Medication Instructions Recorded Famotidine [Pepcid] 20 mg PO BID #30 tab 02/23/19 Ibuprofen [Motrin] 400 mg PO Q8HR PRN #30 tab 02/23/19 Nicotine 21Mg/24Hr Patch [Habitrol] 1 patch TRANSDERM DAILY #7 patch 02/23/19 amLODIPine [Norvasc] 10 mg PO DAILY #0 02/23/19 Cephalexin [Keflex] 500 mg PO Q6HR #40 cap 02/24/19 Ciprofloxacin HCl [Cipro] 500 mg PO Q12HR #20 tablet 02/24/19 Allergies Allergy/AdvReac Type Severity Reaction Status Date / Time No Known Allergies Allergy Verified 06/15/19 18:13 Review of Systems ROS Statement: Those systems with pertinent positive or pertinent negative responses have been documented in the HPI. ROS Other: All systems not noted in ROS Statement are negative. Past Medical History Past Medical History: Hypertension, Osteoarthritis (OA) History of Any Multi-Drug Resistant Organisms: None Reported Past Surgical History: Hernia Repair Additional Past Surgical History / Comment(s): Laparotomy, hernia repair with mesh by Dr. Gaytan Past Anesthesia/Blood Transfusion Reactions: No Reported Reaction Past Psychological History: No Psychological Hx Reported Smoking Status: Current every day smoker Past Alcohol Use History: Daily, Heavy Past Drug Use History: None Reported - Past Family History Mother Family Medical History: Cancer, Diabetes Mellitus Additional Family Medical History / Comment(s): lung cancer Father Family Medical History: Diabetes Mellitus General Exam - General Exam Comments Initial Comments: Constitutional: NAD, AOX3, Pt has pleasant affect. HEENT: NC/AT, trachea midline, neck supple, no lymphadenopathy. Posterior pharynx non erythematous, without exudates. External ears appear normal, without discharge. Mucous membranes moist. Eyes PERRLA, EOM intact. There is no scleral icterus. No pallor noted. Cardiopulmonary: RRR, no murmurs, rubs or gallops, no JVD noted. Lungs CTAB in anterior and posterior carye. No peripheral edema. Abdominal exam: Abdomen soft and non-distended. Abdomen non-tender to palpation in all 4 quadrants. Bowel sounds active in LLQ. No hepatosplenomegaly. No ecchymosis Neuro: CN II-XII grossly intact. No nuchal rigidity. No raccon eyes, no mendez sign, no hemotympanum. No cervical spinal tenderness. MSK: Mild soft tissue swelling left anterior patella. No ecchymoses. Active range of motion. Left shoulder mild tender at anterior aspect. Full range of motion. No ecchymoses. Neurovascularly intact distally. No posterior calf tenderness bilaterally, homans sign negative bilaterally. Posterior tibialis and radial pulse +2 bilaterally. Sensation intact in upper and lower extremities. Full active ROM in upper and lower extremities, 5/5 stregnth. Limitations: no limitations Course Vital Signs 06/15/19 18:11 Temperature 97.6 F Pulse Rate 87 Respiratory 18 Rate Blood Pressure 136/74 O2 Sat by Pulse 98 Oximetry Medical Decision Making - Medical Decision Making 53-year-old male patient presents to ED complaining of fall 2 days ago. Patient reports that he was walking up wooden stairs with wet shoes when he slipped and he landed on his left knee and left shoulder region. Denies trauma to head or neck. Denies falling down stairs. Patient reports that he has pain in his anterior patellar region as well as his left shoulder from fall. These main complaint. Patient is ambulatory without difficulty. Denies any other complaints at this time. Patient vital signs stable, afebrile. Physical exam displayed: Mild soft tissue swelling left anterior patella. No ecchymoses. Active range of motion. Left shoulder mild tender at anterior aspect. Full range of motion. No ecchymoses. Patient is able to without difficulty. Plain films are negative. Patient discharged with outpatient primary care follow-up. Case discussed with Dr. Zayas. Disposition Clinical Impression: Fall Disposition: HOME SELF-CARE Condition: Stable Instructions (If sedation given, give patient instructions): Fall Prevention (ED), Shoulder Sprain (ED), Knee Sprain (ED) Additional Instructions: Patient to adhere to previously discussed treatment plan and will take medication(s) as directed. Patient to follow up with PCP in 1-2 days. Patient to return to ED if symptoms do not improve. Return to ER if condition worsens. Is patient prescribed a controlled substance at d/c from ED?: No Referrals: Morales Adorno MD [Primary Care Provider] - 1-2 days
--- NOTE | 2019-06-15 19:01 | XR ---
EXAMINATION TYPE: XR shoulder complete LT DATE OF EXAM: 06/15/2019 COMPARISON: NONE HISTORY: Shoulder pain TECHNIQUE: 3 views FINDINGS: I see no fracture nor dislocation. Glenohumeral joint is intact. There are no pathologic ca lcifications. IMPRESSION: Negative left shoulder exam.
--- NOTE | 2019-06-15 19:03 | XR ---
EXAMINATION TYPE: XR knee 4V LT DATE OF EXAM: 06/15/2019 COMPARISON: NONE HISTORY: Knee pain TECHNIQUE: 4 views FINDINGS: I see no fracture nor dislocation. Joint spaces are fairly normal. There is vascular calcif ication. There is no sign of knee joint effusion. There is some soft tissue swelling anterior to the patella. IMPRESSION: No fracture. Anterior soft tissue swelling.
[2019-06-15 19:12] VITALS: BP 136/74; PULSE 87; RESP 18; TEMP 97.6
== END 2019-06-15 19:27 | disposition home or self-care (01) ==
LOC: EC 18:09
DX: Z04.3 Encounter for examination and observation following other accident (principal); M25.462 Effusion, left knee; I10 Essential (primary) hypertension; F17.200 Nicotine dependence, unspecified, uncomplicated; W01.0XXA Fall on same level from slipping, tripping and stumbling without subsequent striking against object, initial encounter; Y93.01 Activity, walking, marching and hiking
CPT/HCPCS: 73030; 73564; 99284; 96372; J1885

== ENCOUNTER → 2019-08-26 | Outpatient (CLI) | payer OTHER ==
--- NOTE | 2019-08-27 07:01 | MR ---
EXAMINATION TYPE: MR cervical spine wo con DATE OF EXAM: 08/26/2019 COMPARISON: None HISTORY: 53-year-old male Neck pain, numbness in arms, slipped and fell TECHNIQUE: Multiplanar, multisequence images of the cervical spine were acquired. FINDINGS: No craniocervical junction and remotely, predental space widening, or prevertebral soft tissue swelli ng. Preserved alignment of the cervical spine. Mild heterogeneity of marrow signal without suspicious bon e marrow replacement. Moderate degenerative disc disease throughout with desiccated, mildly narrowed discs with disc osteop hyte complex formation. Facet and uncovertebral joint degenerative change throughout. There is a component of congenital spinal canal stenosis within the cervical spine with AP canal dime nsion of 9 mm. At C2-C3, left greater than right facet and uncovertebral joint arthropathy. Moderate left neuroforam inal stenosis. Mild congenital canal narrowing. At C3-C4, broad-based disc osteophyte complex with uncovertebral joint and facet degenerative change. Moderate left and mild right neural foraminal stenosis. Mild congenital canal narrowing. At C4-C5, large broad-based disc osteophyte complex with uncovertebral joint and facet degenerative c hange. Severe bilateral neuroforaminal stenoses with moderate to severe spinal canal stenosis with fl attening of both the dorsal and ventral cord and AP canal dimension of 4.5 mm. At C5-C6, broad-based disc osteophyte complex with uncovertebral joint and facet degenerative change. Severe left greater than right neuroforaminal stenosis. Moderate spinal canal stenosis with flatteni ng of both the dorsal and ventral cord and AP canal dimension of 6 mm. At C6-C7, left paracentral disc protrusion with annular fissure focally abuts and flattens the left v entral cord. There is an overall moderate spinal canal stenosis at this level with AP canal dimension of 7 mm. Facet and uncovertebral joint arthropathy. Mild to moderate left and mild right neuroforami nal stenosis. At C7-T1, larger left paracentral disc herniation with moderate spinal canal stenosis with AP canal d imension of 7 mm. Greater degree of focal indentation of the left ventral cord due to the herniation. Facet and uncovertebral joint arthropathy. Moderate left and mild right neuroforaminal stenosis. No prevertebral or paravertebral soft tissue abnormality seen. There are motion related patchy cord artifacts throughout limiting assessment for cord edema. No defi nite myelopathic cord signal change at this time. IMPRESSION: 1. Congenital spinal canal stenosis with AP canal dimension of 9 mm. 2. Superimposed moderate multilevel degenerative disc disease as well as facet and uncovertebral join t arthropathy. 3. Overall changes result in a moderate to severe spinal canal stenosis at C4-C5 and severe bilateral neural foraminal stenosis (AP canal dimension of 4.5 mm). Flattening of both the dorsal and ventral cord. 4. Moderate spinal canal stenosis at C5-C6 (AP canal dimension of 6 mm) with flattening of both the d orsal and ventral cord. Severe left greater than right neural foraminal stenosis here. 5. Large left paracentral disc herniation at C7-T1 causes a greater degree of focal indentation of th e left ventral cord on a back drop of moderate canal stenosis (AP canal dimension of 7 mm). 6. Smaller left paracentral disc herniation with annular fissure at C6-C7. Similar moderate canal ishan nosis here with AP canal dimension of 7 mm. 7. Motion artifacts limit assessment for discrete cord edema. No definite myelopathic cord signal ambika nge at this time. Further clinical correlation recommended.
== END | disposition home or self-care (01) ==
LOC: RADMRIMAIN 15:36
PROVIDERS: ATTEND Internal Medicine
DX: M48.02 Spinal stenosis, cervical region (principal); M48.03 Spinal stenosis, cervicothoracic region; M50.223 Other cervical disc displacement at C6-C7 level; M50.23 Other cervical disc displacement, cervicothoracic region; M50.30 Other cervical disc degeneration, unspecified cervical region; M46.92 Unspecified inflammatory spondylopathy, cervical region
CPT/HCPCS: 72141

== ENCOUNTER 2020-06-21 16:50 | Emergency (ER) | payer OTHER ==
[2020-06-21 18:03] LABS: Basophils # (A) 0.1 k/uL (0-0.2); Basophils % (A) 1 %; Eosinophils # (A) 0.5 k/uL (0-0.7); Eosinophils % (A) 4 %; HCT 50.9 % (39.0-53.0); HGB 17.2 gm/dL (13.0-17.5); Lymphocytes # (A) 2.7 k/uL (1.0-4.8); Lymphocytes % (A) 21 %; MCH 32.1 pg (25.0-35.0); MCHC 33.8 g/dL (31.0-37.0); MCV 95.2 fL (80.0-100.0); Mean Platelet Volume 7.3; Monocytes # (A) 0.5 k/uL (0-1.0); Monocytes % (A) 4 %; Neutrophils # (A) 8.7 k/uL (1.3-7.7); Neutrophils % (A) 69 %; Platelet Count 255 k/uL (150-450); RBC 5.35 m/uL (4.30-5.90); RDW 12.3 % (11.5-15.5); WBC 12.6 k/uL (3.8-10.6)
--- NOTE | 2020-06-21 18:06 | ED ---
SOB HPI - General Chief Complaint: Shortness of Breath Stated Complaint: IKE, Difficulty swallowing Time Seen by Provider: 06/21/20 17:10 Source: patient Mode of arrival: wheelchair Limitations: no limitations - History of Present Illness Initial Comments: is a 54-year-old male with a history of hypertension and hyperlipidemia who presents or urgency department for difficulty with swallowing and shortness of breath. The patient states he is noticed a lump on the left side of his neck for the last 2 months. He states that gradually cause worsening difficulty with swallowing and states that sometimes he has trouble even swallowing water. He states that he is noticed he is having worsening shortness of breath over the last 2 months as well which is worse with laying down at night and sleeping. He was down in [place] and they're going to do a CT of his soft tissues however his insurance wouldn't pay for it. He came up to [place] about one week agoand decided come in today because his shortness of breath was concerning him. He does admit to smoking. He denies any headaches, chest pain,, nausea, vomiting, or any other acute complaints. - Related Data Home Medications Medication Instructions Recorded Confirmed Multivitamins, Thera [Multivitamin 1 tab PO DAILY 02/20/19 06/21/20 (formulary)] Apixaban [Eliquis] 5 mg PO BID 06/21/20 06/21/20 Sotalol [Betapace] 120 mg PO BID 06/21/20 06/21/20 Zolpidem [Ambien] 5 mg PO HS PRN 06/21/20 06/21/20 amLODIPine [Norvasc] 10 mg PO DAILY 06/21/20 06/21/20 tiZANidine HCL 2 mg PO BID PRN 06/21/20 06/21/20 Allergies Allergy/AdvReac Type Severity Reaction Status Date / Time No Known Allergies Allergy Verified 06/21/20 16:59 Review of Systems ROS Statement: Those systems with pertinent positive or pertinent negative responses have been documented in the HPI. ROS Other: All systems not noted in ROS Statement are negative. Past Medical History Past Medical History: Hypertension, Osteoarthritis (OA) History of Any Multi-Drug Resistant Organisms: None Reported Past Surgical History: Hernia Repair Additional Past Surgical History / Comment(s): Laparotomy, hernia repair with mesh by Dr. Gaytan Past Anesthesia/Blood Transfusion Reactions: No Reported Reaction Past Psychological History: No Psychological Hx Reported Smoking Status: Current every day smoker Past Alcohol Use History: Daily, Heavy Past Drug Use History: None Reported - Past Family History Mother Family Medical History: Cancer, Diabetes Mellitus Additional Family Medical History / Comment(s): lung cancer Father Family Medical History: Diabetes Mellitus General Exam - General Exam Comments Initial Comments: Constitutional: [Awake alert] [Appears comfortable] Head: [Normocephalic atraumatic] Eyes: [no conjunctival injection] [No scleral icterus] [EOMI] Neck: [No JVD] [Supple] there is a firm mass along the left SCM Heart: [Regular rate rhythm] [normal S1-S2] [no murmurs] Lungs: [Clear to auscultation bilaterally] [No wheezing] [No rales] the patient does have some mild stridor at rest, very hoarse and raspy voice Abdomen: [Soft] [nondistended] [nontender] Extremities: [Non edematous] [DP pulses intact] [Radial pulses intact] Neuro: [A&Ox3] [No focal neurologic deficits] Psych: [Appropriate mood and affect] Limitations: no limitations Course Vital Signs 06/21/20 06/21/20 16:55 18:19 Temperature 98.7 F Pulse Rate 108 H 100 Respiratory 18 18 Rate Blood Pressure 116/68 95/73 O2 Sat by Pulse 97 94 L Oximetry Medical Decision Making - Medical Decision Making this is a 54-year-old male presents emergency from for worsening shortness of breath and dysphagia. Patient was evaluated with a CT of the soft tissue of his neck which did reveal some irregular mouth mucosa in the larynx. There is some narrowing of his airway as well. I spoke with Dr. Gonzalez about this and he stated that he would recommend admission for further workup and possible cancer. He recommended consultation to Dr. Jovel which will be placed. The patient may require ENT as well for possible biopsy or surgical resection if necessary. Patient has been hemodynamically stable. Oxygen saturation is a been normal. Patient will be admitted to the hospital for further workup and monitoring. - Lab Data Result diagrams: 06/21/20 17:53 06/21/20 17:53 Lab Results 06/21/20 06/21/20 06/21/20 Range/Units 17:53 17:53 17:53 WBC 12.6 H (3.8-10.6) k/uL RBC 5.35 (4.30-5.90) m/uL Hgb 17.2 (13.0-17.5) gm/dL Hct 50.9 (39.0-53.0) % MCV 95.2 (80.0-100.0) fL MCH 32.1 (25.0-35.0) pg MCHC 33.8 (31.0-37.0) g/dL RDW 12.3 (11.5-15.5) % Plt Count 255 (150-450) k/uL Neutrophils % 69 % Lymphocytes % 21 % Monocytes % 4 % Eosinophils % 4 % Basophils % 1 % Neutrophils # 8.7 H (1.3-7.7) k/uL Lymphocytes # 2.7 (1.0-4.8) k/uL Monocytes # 0.5 (0-1.0) k/uL Eosinophils # 0.5 (0-0.7) k/uL Basophils # 0.1 (0-0.2) k/uL PT 9.7 (9.0-12.0) sec INR 0.9 (<1.2) APTT 24.5 (22.0-30.0) sec Sodium 134 L (137-145) mmol/L Potassium 3.8 (3.5-5.1) mmol/L Chloride 100 (98-107) mmol/L Carbon Dioxide 20 L (22-30) mmol/L Anion Gap 14 mmol/L BUN 9 (9-20) mg/dL Creatinine 1.05 (0.66-1.25) mg/dL Est GFR (CKD-EPI)AfAm >90 (>60 ml/min/1.73 sqM) Est GFR (CKD-EPI)NonAf 80 (>60 ml/min/1.73 sqM) Glucose 96 (74-99) mg/dL Calcium 8.8 (8.4-10.2) mg/dL Total Bilirubin 0.5 (0.2-1.3) mg/dL AST 52 (17-59) U/L ALT 41 (4-49) U/L Alkaline Phosphatase 127 H (38-126) U/L Total Protein 7.7 (6.3-8.2) g/dL Albumin 4.2 (3.5-5.0) g/dL Disposition Clinical Impression: Laryngeal mass Disposition: ADMITTED IP TO THIS HOSP Condition: Stable Referrals: Morales Adorno MD [Primary Care Provider] - 1-2 days
[2020-06-21 18:22] LABS: ALT 41 U/L (4-49); AST 52 U/L (17-59); African American GFR (CKD) >90 (>60 ml/min/1.73 sqM); Albumin 4.2 g/dL (3.5-5.0); Alkaline Phosphatase 127 U/L (38-126); Anion Gap 14 mmol/L; Blood Urea Nitrogen 9 mg/dL (9-20); Calcium 8.8 mg/dL (8.4-10.2); Carbon Dioxide 20 mmol/L (22-30); Chloride 100 mmol/L (98-107); Glucose 96 mg/dL (74-99); Non-African American GFR(CKD) 80 (>60 ml/min/1.73 sqM); Potassium 3.8 mmol/L (3.5-5.1); Sodium 134 mmol/L (137-145); Total Bilirubin 0.5 mg/dL (0.2-1.3); Total Protein 7.7 g/dL (6.3-8.2)
[2020-06-21 18:24] LABS: INR 0.9 (<1.2); Partial Thromboplastin Time 24.5 sec (22.0-30.0); Prothrombin Time 9.7 sec (9.0-12.0)
--- NOTE | 2020-06-21 19:34 | CT ---
EXAMINATION TYPE: CT soft tissue neck w con DATE OF EXAM: 06/21/2020 COMPARISON: None HISTORY: dysphagia CT DLP: 371 mGycm Automated exposure control for dose reduction was used. CONTRAST: Performed with IV Contrast, patient injected with 100 mL of Isovue 300. Images were obtained from the aortic arch to the lateral ventricles with IV contrast. Superior mediastinum appears normal. There is no adenopathy. Thyroid gland is symmetric. There is nor mal contrast opacification of the carotid arteries and jugular veins. There is plaque formation at th e carotid artery bifurcations. Epiglottis is normal. Prevertebral soft tissues appear normal. The ton sils and adenoids appear normal. There are bilateral small submandibular lymph nodes measuring less than 1 cm. I see no significant cervical adenopathy. Parotid glands are symmetric. Submandibular sali vary glands are symmetric. There is mild mucosal thickening in the ethmoid air cells. There is no kaveh dence of orbital mass. There is increased density in the glottic region with mucosal thickening and narrowing of the airway. The margins of the mucosal thickening are irregular. Cervical vertebra appear intact. There is no compression fracture. There is mild spurring of the endp lates. Facet joints are intact. IMPRESSION: There is glottic and subglottic tracheal narrowing with mucosal thickening. This segment measures 3.5 cm in length. Laryngoscopy recommended for further evaluation. Tumor not excluded. Follow-up recomme nded.
[2020-06-21] MEDS ORDERED: RX INFO: IV CONTRAST WAS GIVEN 1 EACH MISC MISCELLANE PRN (20:07)
[2020-06-21] MEDS ORDERED: NALOXONE 0.4 MG/ML 1 ML VIAL IV PRN (20:09)
[2020-06-21] MEDS ORDERED: METOPROLOL TARTRATE 25 MG TAB PO STA (20:16)
[2020-06-21] MEDS ORDERED: METOPROLOL TARTRATE 5 MG/5 ML VIAL IVP STA (22:38)
[2020-06-21] MEDS ORDERED: DEXAMETHASONE SOD PHOSPHATE 10 MG/ML 1 ML VIAL IV STA (22:46)
[2020-06-21 23:41] VITALS: BP 117/68; PULSE 103; RESP 18; TEMP 98
== END 2020-06-21 23:30 | disposition other institution (70) ==
LOC: EC 16:50 → UNDOADMIN 20:09 → 4SSUR 20:09 → EC 23:30
DX: J38.7 Other diseases of larynx (principal); I48.20 Chronic atrial fibrillation, unspecified; R06.02 Shortness of breath; R13.10 Dysphagia, unspecified; I10 Essential (primary) hypertension; F17.200 Nicotine dependence, unspecified, uncomplicated; Z79.01 Long term (current) use of anticoagulants; Z79.899 Other long term (current) drug therapy
CPT/HCPCS: 36415; 93005; 80053; 85025; 85610; 85730; 70491; 99285; 96374; 96375; J1100; Q9967

== ENCOUNTER → 2020-07-25 | Outpatient (CLI) | payer OTHER ==
--- NOTE | 2020-07-27 09:51 | PE ---
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 Tracheostomy performed June 22, 2020 . TECHNIQUE: Following the intravenous administration of 10.00 mCi of F-18 FDG, whole body images are performed from the skull base to the midthigh. Images are reviewed on the computer in the coronal, a xial, and sagittal planes. Reconstructed rotating images are created on independent workstation and reviewed on the computer. A localization and attenuation correction CT is performed in conjunction with the PET scan. Dedicated PET/CT imaging of the neck is performed. SCAN: Initial Scan FINDINGS: SKULL BASE AND NECK: Abnormal hypermetabolic uptake corresponding to primary neoplasm noted at level of hyoid bone extending greater to left of midline measuring roughly 3.4 x 2.0 cm axial image 42 cor responding to heterogeneous poorly defined enhancing mass on prior neck CT filling the left piriform sinus, maxillary SUV is 20.98 on axial image 40. This causes right-sided airway deviation and narrowi ng axial image 42 for reference. There is abnormal hypermetabolic left-sided lymph node anterior to the carotid and jugular vessels me asuring 2.1 x 2.1 cm corresponding to axial image [address], max SUV is 11.03 on axial image 39 current study along superior margin of hyoid bone. Just above level of tracheostomy tube at level of thyroid gland there is hypermetabolic enlarged late ral left supraclavicular lymph node measuring 2.1 x 1.4 cm axial image 57, max SUV is 6.33. CHEST, MEDIASTINUM, AND HILAR REGION: No areas of abnormal hypermetabolic uptake. ABDOMEN AND PELVIS: No areas of abnormal hypermetabolic uptake. OSSEOUS STRUCTURES: No areas of abnormal hypermetabolic uptake. OTHER CT: Moderate calcified plaque left carotid bulb with more mild calcified plaque right carotid b ulb. At least moderate three-vessel coronary artery calcification. Heart size upper limits of normal. Coils from ventral wall hernia repair surgery noted. No recurrent hernia. 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 Adjacent left neck adenopathy at level of hyoid bone. Additional abnormal left supraclavicular hypermetabolic lymph node. No distal m etastatic disease.
== END | disposition home or self-care (01) ==
LOC: RADPETMAIN 09:04
PROVIDERS: ATTEND Internal Medicine Hematology & Oncology
DX: C13.8 Malignant neoplasm of overlapping sites of hypopharynx (principal); R59.0 Localized enlarged lymph nodes; R93.89 Abnormal findings on diagnostic imaging of other specified body structures
CPT/HCPCS: 78815; A9552

== ENCOUNTER 2020-08-11 10:09 | Day surgery (SDC) | payer OTHER ==
[2020-08-05 09:26] VITALS: BMI 30.7
[~2020-08-11 10:09] MED LIST: LACTATED RINGERS 1,000 ML IV SCH; LIDOCAINE 1% (10MG/ML) FOR IV START INTRADERMA PRN
[2020-08-11 10:47] VITALS: TEMP 98.5
[2020-08-11] MEDS ORDERED: PROPOFOL 10 MG/ML 20 ML VIAL IV ONE (11:04)
--- NOTE | 2020-08-11 11:09 | P.GSHP ---
History of Present Illness H&P Date: 08/11/20 Chief Complaint: Head and neck cancer Patient here today for EGD with PEG tube placement. Patient with recent diagnosis of left pharyngeal malignancy. Patient will be starting radiation therapy in the near future. Patient having some dysphagia issues already. Patient has a tracheostomy tube. Underwent tooth extraction this week. Past Medical History Past Medical History: Atrial Fibrillation, Cancer, Hypertension, Osteoarthritis (OA) Additional Past Medical History / Comment(s): "throat cancer" trach. recent extraction of teeth. cancerous polyps removed during colonoscopy History of Any Multi-Drug Resistant Organisms: None Reported Past Surgical History: Hernia Repair Additional Past Surgical History / Comment(s): Laparotomy, hernia repair with mesh by Dr. Gaytan,. tracheotomy, colonoscopy x2 Past Anesthesia/Blood Transfusion Reactions: No Reported Reaction Smoking Status: Current every day smoker - Past Family History Mother Family Medical History: Cancer, Diabetes Mellitus Additional Family Medical History / Comment(s): lung cancer Father Family Medical History: Diabetes Mellitus Medications and Allergies Home Medications Medication Instructions Recorded Confirmed Type Zolpidem [Ambien] 5 mg PO HS PRN 06/21/20 08/11/20 History amLODIPine [Norvasc] 10 mg PO DAILY 06/21/20 08/11/20 History tiZANidine HCL 2 mg PO BID PRN 06/21/20 08/11/20 History Metoprolol Tartrate [Lopressor] 150 mg PO BID 08/05/20 08/11/20 History Allergies Allergy/AdvReac Type Severity Reaction Status Date / Time No Known Allergies Allergy Verified 08/11/20 10:58 Surgical - Exam Vital Signs Temp Pulse Resp BP Pulse Ox 98.5 F 118 H 16 131/83 97 08/11/20 10:32 08/11/20 10:32 08/11/20 10:32 08/11/20 10:32 08/11/20 10:32 Physical exam: General: Well-developed, well-nourished HEENT: Normocephalic, sclerae nonicteric, tracheostomy in place Abdomen: Nontender, nondistended Extremities: No edema Neuro: Alert and oriented Assessment and Plan (1) Pharyngeal cancer Narrative/Plan: Will proceed with EGD and PEG tube placement at this time. Risks of bleeding, infection, bowel injury, perforation, dehiscence, aspiration, inability to place to all discussed. Patient understands and wishes to proceed. Current Visit: Yes Status: Acute Code(s): C14.0 - MALIGNANT NEOPLASM OF PHARYNX, UNSPECIFIED SNOMED Code(s): 346654515
--- NOTE | 2020-08-11 11:26 | P.PCN ---
Date of Procedure: 08/11/20 Procedure(s) Performed: PREOPERATIVE DIAGNOSIS: Malnutrition, pharyngeal cancer POSTOPERATIVE DIAGNOSIS: Same, gastritis, duodenitis PROCEDURE: EGD with PEG tube placement SURGEON: Ruddy EBL: Minimal ANESTHESIA: Sedation COMPLICATIONS: None OPERATIVE PROCEDURE: The patient was placed in the supine position on the endoscopy table. The patient was sedated per anesthesia that time. The Olympus gastroscope was inserted into the oropharynx and passed under direct visualization to the region of the duodenum. No obstruction was seen. The pylorus was widely patent. The patient had evidence of duodenitis with a few small erosions present. A biopsy of the duodenum took place. The stomach was carefully inspected. There was noted to be gastritis as well. A biopsy of the antrum took place. The stomach was fully insufflated with air. The abdominal wall was inspected. The light was seen shining through the abdominal wall in the left upper quadrant. This site was chosen for PEG tube placement. The area was prepped in the usual sterile fashion. This area was then localized with lidocaine. A small vertical incision was made using the scalpel. The Seldinger needle was advanced into the lumen of the stomach the wire was advanced. The wire was grasped with an endoscopic snare. The wire was pulled through the oropharynx. The catheter was then threaded over the guidewire and the guidewire and catheter were pulled anteriorly until the hub of the PEG tube catheter was seated against the anterior wall the stomach. The circular bolster was applied and tightened down. The endoscope was then readvanced into the stomach. There was no evidence of any bleeding and there was appropriate tightness on the bolster. The catheter was cut appropriately. The dual port feeding adapter was applied. DISPOSITION: Stable to recovery room
[2020-08-11 12:05] VITALS: BP 103/71; PULSE 130; RESP 16
== END 2020-08-11 12:49 | disposition home or self-care (01) ==
LOC: ORWHC2ENDO 10:09
PROVIDERS: ATTEND Surgery
DX: C14.0 Malignant neoplasm of pharynx, unspecified (principal); K29.80 Duodenitis without bleeding; E46 Unspecified protein-calorie malnutrition; K29.70 Gastritis, unspecified, without bleeding; R13.10 Dysphagia, unspecified; Z93.0 Tracheostomy status; I48.91 Unspecified atrial fibrillation; I10 Essential (primary) hypertension; M19.90 Unspecified osteoarthritis, unspecified site; Z85.038 Personal history of other malignant neoplasm of large intestine; Z98.890 Other specified postprocedural states; F17.200 Nicotine dependence, unspecified, uncomplicated; Z80.1 Family history of malignant neoplasm of trachea, bronchus and lung; Z83.3 Family history of diabetes mellitus; Z79.899 Other long term (current) drug therapy
CPT/HCPCS: 88305; 43239; 43246; J2704; B4087

== ENCOUNTER 2020-09-15 08:26 | Inpatient (IN) | payer OTHER ==
[2020-09-15] MEDS ORDERED: SODIUM CHLORIDE 0.9% 500 ML 500 ML IV STA (08:52)
[2020-09-15] MEDS ORDERED: SODIUM CHLORIDE 0.9% 1,000 ML IV STA (08:52)
[2020-09-15 08:55] LABS: Glucose,Whole Blood 112 mg/dL (75-99)
--- NOTE | 2020-09-15 08:58 | ED ---
General Adult HPI - General Chief complaint: Neuro Symptoms/Deficit Stated complaint: Low BP/left arm & hand weakness Time Seen by Provider: 09/15/20 08:36 Source: patient, RN/MD, RN notes reviewed Mode of arrival: wheelchair Limitations: physical limitation - History of Present Illness Initial comments: Patient is a pleasant 54-year-old male presenting to the emergency Department with difficulty using the left hand. Onset of symptoms was when he woke this morning around 4:30. Last known well was around 8 PM when he went to bed. Symptoms have been persistent. Patient has coordination problems more than actual weakness of the left hand. No loss of sensation. No other area of involvement. No headache or confusion or speech problem. Case was discussed with patient's radiation oncologist prior to arrival, Dr. Tameka Ko. 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 She feels patient is probably somewhat dehydrated. She feels symptoms are likely related to patient's cancer or radiation treatment and would like computed tomography scan done and has concern or involving the brachial plexus. She feels scans are unremarkable patient could likely be discharged home. - Related Data Home Medications Medication Instructions Recorded Confirmed Zolpidem [Ambien] 5 mg PO HS PRN 06/21/20 09/15/20 amLODIPine [Norvasc] 10 mg PO DAILY 06/21/20 09/15/20 tiZANidine HCL 2 mg PO BID PRN 06/21/20 09/15/20 Metoprolol Tartrate [Lopressor] 150 mg PO BID 08/05/20 09/15/20 Hydrocodone/Acetaminophen [Hycet 15 ml PO Q8H PRN 09/15/20 09/15/20 7.5 mg-325 mg/15 ml Soln] LORazepam [Ativan] 0.5 mg PO DAILY PRN 09/15/20 09/15/20 Lidocaine Viscous 2% [Xylocaine 15 ml MUCOUS MEM ACHS PRN 09/15/20 09/15/20 Viscous] Previous Rx's Medication Instructions Recorded Omeprazole [PriLOSEC] 20 mg PO AC-BRKFST #90 cap 08/11/20 Allergies Allergy/AdvReac Type Severity Reaction Status Date / Time No Known Allergies Allergy Verified 09/15/20 09:42 Review of Systems ROS Statement: Those systems with pertinent positive or pertinent negative responses have been documented in the HPI. ROS Other: All systems not noted in ROS Statement are negative. Constitutional: Denies: fever Eyes: Denies: eye pain ENT: Denies: ear pain Respiratory: Denies: cough, dyspnea Cardiovascular: Denies: chest pain Endocrine: Denies: fatigue Gastrointestinal: Denies: abdominal pain Genitourinary: Denies: dysuria Musculoskeletal: Denies: back pain Skin: Denies: rash Neurological: Reports: as per HPI. Denies: headache, confusion Past Medical History Past Medical History: Atrial Fibrillation, Cancer, Hypertension, Osteoarthritis (OA) Additional Past Medical History / Comment(s): "throat cancer" trach. recent extraction of teeth. cancerous polyps removed during colonoscopy. Currently getting chemo and radiation for throat cancer History of Any Multi-Drug Resistant Organisms: None Reported Past Surgical History: Hernia Repair Additional Past Surgical History / Comment(s): Laparotomy, hernia repair with mesh by Dr. Gaytan,. tracheotomy, colonoscopy x2 Past Anesthesia/Blood Transfusion Reactions: No Reported Reaction Past Psychological History: No Psychological Hx Reported Smoking Status: Current every day smoker Past Alcohol Use History: None Reported Past Drug Use History: None Reported - Past Family History Mother Family Medical History: Cancer, Diabetes Mellitus Additional Family Medical History / Comment(s): lung cancer Father Family Medical History: Diabetes Mellitus General Exam Limitations: physical limitation General appearance: alert, in no apparent distress Head exam: Present: atraumatic Eye exam: Present: normal appearance, PERRL, EOMI. Absent: nystagmus ENT exam: Present: normal oropharynx Neck exam: Present: other (Trach is present. Patient does have radiation Discoloration left lateral neck and upper mid chest near the neck.) Respiratory exam: Present: normal lung sounds bilaterally. Absent: chest wall tenderness Cardiovascular Exam: Present: regular rate, irregular rhythm Expanded Peripheral pulses: 2+: Radial (L) GI/Abdominal exam: Present: soft. Absent: tenderness Extremities exam: Present: normal inspection Neurological exam: Present: alert, oriented X3, CN II-XII intact Expanded Speech: Present: fluid speech (Patient has a trach but able to speak approp riately with covering this.) Cranial nerves: EOM's Intact: Normal, Facial Sensation: Normal Cerebellar function: Finger to Nose: Abnormal Left (Slightly abnormal) Sensory exam: Upper Extremity Light Touch: Normal, Lower Extremity Light Touch: Normal Motor strength exam: RUE: 5, LUE: 4 (Minimal drift), RLE: 5, LLE: 5 Eye Response: (4) open spontaneously Motor Response: (6) obeys commands Verbal Response: (5) oriented Psychiatric exam: Present: normal affect, normal mood Skin exam: Present: normal color Course Vital Signs 09/15/20 09/15/20 09/15/20 08:28 08:45 10:12 Temperature 98 F Pulse Rate 82 85 81 Respiratory 18 20 20 Rate Blood Pressure 95/62 98/67 98/71 O2 Sat by Pulse 100 96 96 Oximetry 09/15/20 10:55 Temperature Pulse Rate 78 Respiratory 20 Rate Blood Pressure 114/76 O2 Sat by Pulse 96 Oximetry - Reevaluation(s) Reevaluation #1: 09/15/20 09:17 Patient is not a TPA candidate secondary to onset greater than 4.5 hours. In addition diagnosis is not clearly defined stroke and could be related to cancer or radiation treatment. Case was discussed with Dr. Dietrich who agrees patient is not a TPA candidate. He feels patient could benefit from admission with neurology evaluation. EKG Findings - EKG Comments: EKG Findings:: A. fib with rate of 81. QRS 82. QT 410. QTc 476. Normal axis. Q waves V1 and V2. No acute ST change. Medical Decision Making - Medical Decision Making Patient reevaluated and is somewhat improved. Case was discussed with Dr. Mendoza, who will admit covered for Dr. gaffney. - Lab Data Result diagrams: 09/15/20 09:00 09/15/20 09:00 Lab Results 09/15/20 09/15/20 09/15/20 Range/Units 08:53 09:00 09:00 WBC 6.7 (3.8-10.6) k/uL RBC 4.48 (4.30-5.90) m/uL Hgb 14.2 (13.0-17.5) gm/dL Hct 40.9 (39.0-53.0) % MCV 91.2 (80.0-100.0) fL MCH 31.8 (25.0-35.0) pg MCHC 34.9 (31.0-37.0) g/dL RDW 14.2 (11.5-15.5) % Plt Count 261 (150-450) k/uL MPV 7.7 Neutrophils % 79 % Lymphocytes % 8 % Monocytes % 7 % Eosinophils % 5 % Basophils % 1 % Neutrophils # 5.3 (1.3-7.7) k/uL Lymphocytes # 0.6 L (1.0-4.8) k/uL Monocytes # 0.5 (0-1.0) k/uL Eosinophils # 0.3 (0-0.7) k/uL Basophils # 0.1 (0-0.2) k/uL PT 9.9 (9.0-12.0) sec INR 0.9 (<1.2) APTT 21.4 L (22.0-30.0) sec Sodium (137-145) mmol/L Potassium (3.5-5.1) mmol/L Chloride (98-107) mmol/L Carbon Dioxide (22-30) mmol/L Anion Gap mmol/L BUN (9-20) mg/dL Creatinine (0.66-1.25) mg/dL Est GFR (CKD-EPI)AfAm (>60 ml/min/1.73 sqM) Est GFR (CKD-EPI)NonAf (>60 ml/min/1.73 sqM) Glucose (74-99) mg/dL POC Glucose (mg/dL) 112 H (75-99) mg/dL POC Glu Gear Technician ID Don Guzman Calcium (8.4-10.2) mg/dL Magnesium (1.6-2.3) mg/dL Total Bilirubin (0.2-1.3) mg/dL AST (17-59) U/L ALT (4-49) U/L Alkaline Phosphatase (38-126) U/L Troponin I (0.000-0.034) ng/mL Total Protein (6.3-8.2) g/dL Albumin (3.5-5.0) g/dL 09/15/20 09/15/20 Range/Units 09:00 09:00 WBC (3.8-10.6) k/uL RBC (4.30-5.90) m/uL Hgb (13.0-17.5) gm/dL Hct (39.0-53.0) % MCV (80.0-100.0) fL MCH (25.0-35.0) pg MCHC (31.0-37.0) g/dL RDW (11.5-15.5) % Plt Count (150-450) k/uL MPV Neutrophils % % Lymphocytes % % Monocytes % % Eosinophils % % Basophils % % Neutrophils # (1.3-7.7) k/uL Lymphocytes # (1.0-4.8) k/uL Monocytes # (0-1.0) k/uL Eosinophils # (0-0.7) k/uL Basophils # (0-0.2) k/uL PT (9.0-12.0) sec INR (<1.2) APTT (22.0-30.0) sec Sodium 131 L (137-145) mmol/L Potassium 3.4 L (3.5-5.1) mmol/L Chloride 87 L (98-107) mmol/L Carbon Dioxide 33 H (22-30) mmol/L Anion Gap 11 mmol/L BUN 24 H (9-20) mg/dL Creatinine 1.14 (0.66-1.25) mg/dL Est GFR (CKD-EPI)AfAm 83 (>60 ml/min/1.73 sqM) Est GFR (CKD-EPI)NonAf 72 (>60 ml/min/1.73 sqM) Glucose 102 H (74-99) mg/dL POC Glucose (mg/dL) (75-99) mg/dL POC Glu Gear Technician ID Calcium 8.8 (8.4-10.2) mg/dL Magnesium 1.3 L (1.6-2.3) mg/dL Total Bilirubin 0.6 (0.2-1.3) mg/dL AST 45 (17-59) U/L ALT 61 H (4-49) U/L Alkaline Phosphatase 97 (38-126) U/L Troponin I <0.012 (0.000-0.034) ng/mL Total Protein 7.0 (6.3-8.2) g/dL Albumin 3.7 (3.5-5.0) g/dL - Radiology Data Radiology results: report reviewed (Computed tomography scan of brain shows no acute intercranial process. CT angios shows no stenosis. Normal [place] of [place].), image reviewed (Chest x-ray shows no acute process) Disposition Clinical Impression: Left arm weakness Disposition: ADMITTED IP TO THIS HOSP Is patient prescribed a controlled substance at d/c from ED?: No Referrals: Morales Adorno MD [Primary Care Provider] - 1-2 days Decision Time: 10:58
--- NOTE | 2020-09-15 09:19 | CT ---
EXAMINATION TYPE: CT brain wo con for TPA DATE OF EXAM: 09/15/2020 COMPARISON: 08/10/2017 INDICATION: Neuro deficit DLP: 1113.8 mGycm, Automated exposure control for dose reduction was used. CONTRAST: None CT of the brain is performed utilizing 3 mm thick sections through the posterior fossa and 3 mm thick sections through the remaining calvarium. Study is performed within 24 hours of arrival to the hosp ital. No abnormal hyperdensity is present to suggest an acute intracranial hemorrhage. No mass lesion is evident. No acute infarcts are evident. Ventricles and sulci are appropriate for the patient age. Paranasal sinuses and mastoid air cells within the [id number] are clear. IMPRESSIONS: 1. No acute intracranial process radiographically apparent.
[2020-09-15 09:21] LABS: Basophils # (A) 0.1 k/uL (0-0.2); Basophils % (A) 1 %; Eosinophils # (A) 0.3 k/uL (0-0.7); Eosinophils % (A) 5 %; HCT 40.9 % (39.0-53.0); HGB 14.2 gm/dL (13.0-17.5); Lymphocytes # (A) 0.6 k/uL (1.0-4.8); Lymphocytes % (A) 8 %; MCH 31.8 pg (25.0-35.0); MCHC 34.9 g/dL (31.0-37.0); MCV 91.2 fL (80.0-100.0); Mean Platelet Volume 7.7; Monocytes # (A) 0.5 k/uL (0-1.0); Monocytes % (A) 7 %; Neutrophils # (A) 5.3 k/uL (1.3-7.7); Neutrophils % (A) 79 %; Platelet Count 261 k/uL (150-450); RBC 4.48 m/uL (4.30-5.90); RDW 14.2 % (11.5-15.5); WBC 6.7 k/uL (3.8-10.6)
[2020-09-15 09:26] LABS: Albumin 3.7 g/dL (3.5-5.0); Calcium 8.8 mg/dL (8.4-10.2); Magnesium 1.3 mg/dL (1.6-2.3); Potassium 3.4 mmol/L (3.5-5.1); Total Bilirubin 0.6 mg/dL (0.2-1.3)
--- NOTE | 2020-09-15 09:46 | XR ---
EXAMINATION TYPE: XR chest 2V DATE OF EXAM: 09/15/2020 COMPARISON: 11/15/2018 INDICATION: Altered mental status TECHNIQUE: Frontal and lateral views of the chest are obtained. FINDINGS: The heart size is normal. The pulmonary vasculature is normal. The lungs are clear. Tracheostomy tube is in the midline. IMPRESSION: 1. No acute pulmonary process.
[2020-09-15 09:47] LABS: INR 0.9 (<1.2); Prothrombin Time 9.9 sec (9.0-12.0)
--- NOTE | 2020-09-15 09:48 | CT ---
EXAMINATION TYPE: CT angio head neck DATE OF EXAM: 09/15/2020 HISTORY: Neuro deficit COMPARISON: None CT DLP: 518.4 mGycm. Automated Exposure Control for Dose Reduction was Utilized. TECHNIQUE: CTA scan of the neck is performed with IV Contrast, patient injected with 65 mL of Isovue 370, axial images are obtained, coronal and sagittal reformatted images are reviewed. Three-D recons tructed images are created on an independent workstation and reviewed. Source images are reviewed. FINDINGS: Carotid/Vascular Structures: There is a three-vessel arch. Tracheostomy tube is in the midline. Porti on of the thyroid visualized is normal. Vertebral arteries are codominant. Atheromatous plaquing is a t the carotid bifurcations more so on the left. Significant flow-limiting stenosis however is not kaveh dent. Cervical of [place]: Vertebral basilar system appears normal. Posterior cerebral vasculature is unrema rkable. Internal carotid arteries bifurcate normally into A1 and M1 segments. A2 segments are normal. The anterior communicating artery is patent. Left Posterior communicating artery is patent. Right po sterior communicating artery is patent. IMPRESSION: 1. No flow-limiting stenosis bilateral carotid bifurcations. 2. Normal [place] of [place]
[2020-09-15 09:51] LABS: Partial Thromboplastin Time 21.4 sec (22.0-30.0)
[2020-09-15] MEDS ORDERED: MAGNESIUM OXIDE 400 MG TAB PO STA (10:24)
[2020-09-15] MEDS ORDERED: MAGNESIUM SULFATE-D5W PMX 1 GM in DEXTROSE/WATER 1 100ML.BAG IVPB ONE (10:24)
[2020-09-15] MEDS ORDERED: ASPIRIN 325 MG TAB PO STA (10:58)
[2020-09-15] MEDS ORDERED: SODIUM CHLORIDE 0.9% 1,000 ML IV SCH (11:00)
[2020-09-15] MEDS ORDERED: tiZANidine 4 MG TAB PO PRN (13:51)
[2020-09-15] MEDS ORDERED: LORazepam 0.5 MG TAB PO PRN (13:51)
[2020-09-15] MEDS ORDERED: ZOLPIDEM 5 MG TAB PO PRN (13:51)
[2020-09-15] MEDS ORDERED: LIDOCAINE VISCOUS 2% 15 ML CUP MUCOUS MEM PRN (13:51)
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
[2020-09-15] MEDS: SODIUM CHLORIDE 0.9% 1,000 ML IV SCH (15:18)
[2020-09-15] MEDS: HYDROcodone/APAP 15 ML SOLUTION PO PRN ×2 (15:18→23:35)
[2020-09-15] MEDS: MAGNESIUM SULFATE-D5W PMX 1 GM in DEXTROSE/WATER 1 100ML.BAG IVPB SCH ×2 (15:19→16:26)
[2020-09-15] MEDS: POTASSIUM CHLORIDE ER 20 MEQ TAB.ER PO STA ×2 (15:20→16:27)
--- NOTE | 2020-09-15 15:28 | US ---
EXAMINATION TYPE: US carotid duplex BILAT DATE OF EXAM: 09/15/2020 COMPARISON: Same day CTA CLINICAL HISTORY: stroke. Left side weakness EXAM MEASUREMENTS: RIGHT: Peak Systolic Velocity (PSV) cm/sec ----- Right CCA: 73.5 ----- Right ICA: 83.4 ----- Right ECA: 99.5 ICA/CCA ratio: 1.1 RIGHT: End Diastole cm/sec ----- Right CCA: 20.8 ----- Right ICA: 28.5 ----- Right ECA: 12.8 LEFT: Peak Systolic Velocity (PSV) cm/sec ----- Left CCA: 85.3 ----- Left ICA: 106.4 ----- Left ECA: 117.7 ICA/CCA ratio: 1.2 LEFT: End Diastole cm/sec ----- Left CCA: 25.8 ----- Left ICA: 30.5 ----- Left ECA: 22.5 VERTEBRALS (direction of flow): Right Vertebral: Antegrade Left Vertebral: Antegrade Rhythm: Arrhythmia No significant stenosis seen bilaterally/ Incidental finding two hypoechoic lesions left lateral neck 1)= 1.3 cm 2)= 2.3 cm . These are enlarged for measurement criteria for adenopathy within the nec k. Metastasis should be considered. IMPRESSION: 1. Atheromatous plaquing without significant flow-limiting stenosis. 2. Enlarged abnormal appearing lymph nodes within the left neck. Metastatic lesions should be conside red. Criteria for Assigning % of Stenosis / Diameter reduction (Estimation based on the indirect measurements of the internal carotid artery velocities (ICA PSV). 1. Normal (no stenosis)=ICA PSV < 125 cm/s: ratio < 2.0: ICA EDV<40 cm/s. 2. Less than 50% stenosis=ICA PSV < 125 cm/s: ratio < 2.0: ICA EDV<40 cm/s. 3. 50 to 69% stenosis=ICA PSV of 125 to 230 cm/s: ration 2.0 ? 4.0: ICA EDV 40-100 cm/s. 4. Greater than 70% stenosis to near occlusion= ICA PSV > 230 cm/s: ratio > 4.0: ICA EDV > 100 cm/s. 5. Near occlusion= ICA PSV velocities may be low or undetectable: variable ratio and ICA EDV. 6. Total occlusion=unable to detect flow.
[2020-09-15] MEDS ORDERED: POTASSIUM CHLORIDE 20 MEQ in WATER FOR INJECTION 1 100ML.BAG IVPB STA (16:30)
[2020-09-15] MEDS: METOPROLOL TARTRATE 50 MG TAB PO SCH (23:37)
[2020-09-15] MEDS: ATORVASTATIN 40 MG TAB PO SCH (23:38)
[2020-09-16] MEDS: SODIUM CHLORIDE 0.9% 1,000 ML IV SCH ×2 (03:34→09:00)
[2020-09-16 04:23] LABS: Cholesterol 190 mg/dL (<200); HDL Cholesterol 37 mg/dL (40-60); LDL Cholesterol,Calculated 97 mg/dL (0-99); Triglycerides 278 mg/dL (<150)
[2020-09-16] MEDS: PANTOPRAZOLE 40 MG TABLET PO SCH (06:54)
[2020-09-16] MEDS: HYDROcodone/APAP 15 ML SOLUTION PO PRN ×3 (08:13→23:47)
[2020-09-16] MEDS: amLODIPine 10 MG TAB PO SCH (08:14)
[2020-09-16] MEDS: METOPROLOL TARTRATE 50 MG TAB PO SCH ×2 (08:14→20:01)
[2020-09-16] MEDS ORDERED: ASPIRIN 325 MG TAB PO SCH (09:00)
[2020-09-16] MEDS ORDERED: ENOXAPARIN 40 MG/0.4 ML SYRINGE SQ SCH (09:00)
[2020-09-16] MEDS ORDERED: APIXABAN 5 MG TAB PO SCH (09:00)
[2020-09-16 09:51] LABS: HCT 41.9 % (39.0-53.0); HGB 13.3 gm/dL (13.0-17.5); Hypochromasia Slight; MCH 30.2 pg (25.0-35.0); MCHC 31.8 g/dL (31.0-37.0); MCV 94.9 fL (80.0-100.0); Mean Platelet Volume 8.2; Platelet Count 202 k/uL (150-450); RBC 4.42 m/uL (4.30-5.90); RDW 15.7 % (11.5-15.5); WBC 6.9 k/uL (3.8-10.6)
--- NOTE | 2020-09-16 10:00 | ECHOF ---
Referral Reason:tia MEASUREMENTS -------- HEIGHT: 167.6 cm WEIGHT: 79.4 kg BP: 120/76 IVSd: 1.5 cm (0.6 - 1.1) LVIDd: 4.1 cm (3.9 - 5.3) LVPWd: 1.9 cm (0.6 - 1.1) IVSs: 1.9 cm LVIDs: 2.8 cm LVPWs: 2.1 cm LAESV Index (A-L): 31.40 ml/m Ao Diam: 2.9 cm (2.0 - 3.7) AV Cusp: 1.7 cm (1.5 - 2.6) MV EXCURSION: 25.683 mm (> 18.000) MV EF SLOPE: 118 mm/s (70 - 150) EPSS: 0.6 cm AV maxP.11 mmHg AV meanP.29 mmHg RAP: 5.00 mmHg RVSP: 10.99 mmHg FINDINGS -------- This was a technically difficult study with suboptimal views. The left ventricular size is normal. There is moderate concentric left ventricular hypertrophy. O verall left ventricular systolic function is normal with, an EF between 55 - 60 %. The right ventricle is normal in size. LA is midly dilated 29-33ml/m2. The right atrial size is normal. xx ml of Lumason was utilized for enhancement of images. Interatrial and interventricular septum intact. There is mild to moderate aortic valve sclerosis. There is no evidence of aortic regurgitation. T here is no evidence of aortic stenosis. No mitral regurgitation. Mild tricuspid regurgitation present. There is no evidence of pulmonary hypertension. The right v entricular systolic pressure, as measured by Doppler, is 10.99mmHg. There is no pulmonic regurgitation present. The aortic root size is normal. IVC Not well visulized. There is no pericardial effusion. CONCLUSIONS -------- 1. The left ventricular size is normal. 2. There is moderate concentric left ventricular hypertrophy. 3. Overall left ventricular systolic function is normal with, an EF between 55 - 60 %. 4. LA is midly dilated 29-33ml/m2. 5. There is mild to moderate aortic valve sclerosis. 6. Mild tricuspid regurgitation present. SQL DATABASE DEVELOPER: Dottie Barrow [facility]
[2020-09-16 10:03] LABS: ALT 38 U/L (4-49); AST 27 U/L (17-59); African American GFR (CKD) >90 (>60 ml/min/1.73 sqM); Albumin 3.2 g/dL (3.5-5.0); Alkaline Phosphatase 105 U/L (38-126); Anion Gap 7 mmol/L; Blood Urea Nitrogen 21 mg/dL (9-20); Calcium 8.3 mg/dL (8.4-10.2); Carbon Dioxide 32 mmol/L (22-30); Chloride 91 mmol/L (98-107); Glucose 139 mg/dL (74-99); Magnesium 1.7 mg/dL (1.6-2.3); Non-African American GFR(CKD) >90 (>60 ml/min/1.73 sqM); Potassium 3.5 mmol/L (3.5-5.1); Sodium 130 mmol/L (137-145); Total Bilirubin 0.4 mg/dL (0.2-1.3); Total Protein 6.1 g/dL (6.3-8.2)
--- NOTE | 2020-09-16 10:20 | P.PN ---
Subjective Progress Note Date: 09/16/20 The patient was seen at bedside and he stated that the he feels his left upper extremity somewhat the better today compared to his initial presentation. He does not feel like his left arm strength is back to normal. He denies any worsening of his weakness or any new neurological symptoms appear denies of any numbness. Patient stated that that he does not have any neck pain at this moment and he doesn't have any pain shooting down his arm. The past he did have neck pain Objective - Vital Signs Vital signs: Vital Signs Temp 98.2 F 09/16/20 08:00 Pulse 89 09/16/20 08:45 Resp 14 09/16/20 08:45 BP 118/66 09/16/20 08:00 Pulse Ox 97 09/16/20 08:00 Intake & Output 09/15/20 09/16/20 09/16/20 18:59 06:59 18:59 Intake Total 700 Balance 700 Weight 79.379 kg 77.5 kg Intake: Intake, IV Titration 700 Amount Magnesium Sulfate-D5w Pmx 100 1 gm In Dextrose/Water 1 100ml.bag @ 100 mls/hr IVPB ONCE ONE Rx#: [id number] Sodium Chloride 0.9% 1, 600 000 ml @ 100 mls/hr IV . Q10H [facility] Rx#:[id number] Oral 0 Other: Voiding Method Toilet Toilet Toilet # Voids 0 # Bowel Movements 0 - Exam GENERAL: The patient is lying in bed and is not in acute distress. HENT: +trach. NEUROLOGICAL: Higher mental function: The patient is awake, alert, oriented to self, place and time. Patient is following commands. No aphasia and no neglect. Cranial nerves: The pupils are round, equal and reactive to light and accommodation. Visual carey are full to confrontation throughout. Extraocular movement is intact no nystagmus is noted. Facial sensation is normal to touch throughout. The facial strength is normal throughout. Hearing is normal bilaterally to hand rub. Tongue is midline and moved [id number] without any difficulty. Mild dysarthria is noted (chronic). Shoulder shrug is normal bilaterally. Motor: Gait is normal with normal arms swings. The strength of the left upper extremity is 4+ to 5-. Left hand front end assistant is 5-/5. Otherwise 5/5 throughout. Normal tone and bulk. Cerebellum: Normal finger to nose bilaterally. Sensation: Sensation is normal to touch throughout. Reflexes (right/left): 3+ bilateral patellar otherwise 2+ throughout. Plantars are downgoing bilaterally. - Labs CBC & Chem 7: 09/16/20 08:52 09/16/20 08:52 Labs: Abnormal Lab Results - Last 24 Hours (Table) 09/15/20 09/16/20 09/16/20 Range/Units 09:00 08:52 08:52 RDW 15.7 H (11.5-15.5) % Sodium 130 L (137-145) mmol/L Chloride 91 L (98-107) mmol/L Carbon Dioxide 32 H (22-30) mmol/L BUN 21 H (9-20) mg/dL Glucose 139 H (74-99) mg/dL Calcium 8.3 L (8.4-10.2) mg/dL Total Protein 6.1 L (6.3-8.2) g/dL Albumin 3.2 L (3.5-5.0) g/dL Triglycerides 278 H (<150) mg/dL HDL Cholesterol 37 L (40-60) mg/dL Assessment and Plan Assessment: This is a 54-year-old gentleman with history of hypopharyngeal cancer status post chemo and radiation therapy that presented to the emergency department on 09/15/2020 for left upper extremity weaness. Onset is 4:30am today and last normal is 8pm yesterday. Acute onset of left upper extremity weakness with some improvement since onset. Seems acute ischecmic stroke > radiation induced to brachial plexus especially with rapid onset of symptoms and some improvement. Hypopharyngeal cancer status post chemo and radiation therapy Mild Elevated ALT Atrial fibrillation (not on anticoagulation or antiplaletes) Electrolyte imbalance (mild hyponateremia and hypomagnesemia) Osteoarthritis Plan: CT of the head is reported as no acute intracranial process radiographically apparent. CT angiography of the head and neck was reported as no flow-limiting stenosis bilateral carotid bifurcation. Normal [place]. Lipid panel: Triglyceride of 278, cholesterol of 190, LDL of 97, and HDL 37. Carotid duplex: Is reported as after medical plaquing without significant flow limiting stenosis appeared large abnormal appearing lymph nodes within the left neck. Metastatic lesion should be considered. Telemetry the patient is on aspirin 325 daily and I started the patient on Lipitor 40 mg daily for secondary stroke prophylaxis. I spoke with the cardiology team I told him to hold off on anticoagulation especially with a history of atrial fibrillation for now until we get the MRI the brain. 2-D echo was reported as moderate concentric left ventricular hypertrophy. E jection fraction of 55-60%. Left atrium is mildly dilated. TSH level: Is 1.51 just considered normal. I ordered MRI the brain and MRI of the cervical. Physical therapy, Occupation therapy and speech therapy are consulted. Cardiology team is consulted because of the history of atrial fibrillation and possible acute stroke. Radiation oncology team is consulted. Patient stated that he is to follow up with Dr. Jones in the past because of the carpal tunnel. I notified him that he needs to follow up as an outpatient with his neurologist upon discharge within 1-2 weeks. We'll defer the rest of the medical management to the primary team. Thank you for the consultation. Juwan Carrera MD Neuro-Hospitalist
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
--- NOTE | 2020-09-16 12:29 | P.PN ---
Subjective Patient is a pleasant 54-year-old male presenting to the emergency Department with difficulty using the left hand. Onset of symptoms was when he woke this morning around 4:30. Last known well was around 8 PM when he went to bed. Symptoms have been persistent. Patient has coordination problems more than actual weakness of the left hand. No loss of sensation. No other area of involvement. No headache or confusion or speech problem. Patient symptoms resolved shortly after he came to ER. 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 PET scan that was done in mid July didn't show significant metastatic disease except for lymphadenopathy and a subacute glottic of his laryngeal cancer. Patient although sepsis is a tracheostomy secretions are more than usual but not thick or discolored. 09/16/2020 Patient will undergo MRI of the head and cervical spine today. Patient was probably will be discharged tomorrow patient most probably has a transient ischemic attack. 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 Constitutional: Denied any fatigue denied any fever. Cardio vascular: denied any chest pain, palpitations Gastrointestinal denied any nausea vomiting Pulmonary: Denied any shortness of breath cough Neurologic denied any new focal deficits All inpatient medications were reviewed and appropriate changes in these medications as dictated in the interval history and assessment and plan. Objective - Vital Signs Vital signs: Vital Signs Temp 98.1 F 09/16/20 11:55 Pulse 82 09/16/20 11:55 Resp 12 09/16/20 11:55 BP 102/65 09/16/20 11:55 Pulse Ox 92 L 09/16/20 11:55 Intake & Output 09/15/20 09/16/20 09/16/20 18:59 06:59 18:59 Intake Total 700 Balance 700 Weight 79.379 kg 77.5 kg Intake: Intake, IV Titration 700 Amount Magnesium Sulfate-D5w Pmx 100 1 gm In Dextrose/Water 1 100ml.bag @ 100 mls/hr IVPB ONCE ONE Rx#: [id number] Sodium Chloride 0.9% 1, 600 000 ml @ 100 mls/hr IV . Q10H [facility] Rx#:[id number] Oral 0 Other: Voiding Method Toilet Toilet Toilet # Voids 0 # Bowel Movements 0 - Exam PHYSICAL EXAMINATION: GENERAL: The patient is alert and oriented x3, not in any acute distress. Well developed, well nourished. HEENT: Pupils are round and equally reacting to light. EOMI. No scleral icterus. No conjunctival pallor. Normocephalic, atraumatic. No pharyngeal erythema. Patient has a tracheostomy in place CARDIOVASCULAR: S1 and S2 present. No murmurs, rubs, or gallops. PULMONARY: Chest is clear to auscultation, no wheezing or crackles. ABDOMEN: Soft, nontender, nondistended, normoactive bowel sounds. No palpable organomegaly. MUSCULOSKELETAL: No joint swelling or deformity. EXTREMITIES: No cyanosis, clubbing, or pedal edema. NEUROLOGICAL: Gross neurological examination did not reveal any focal deficits. SKIN: No rashes. - Labs CBC & Chem 7: 09/16/20 08:52 09/16/20 08:52 Labs: Abnormal Lab Results - Last 24 Hours (Table) 09/15/20 09/16/20 09/16/20 Range/Units 09:00 08:52 08:52 RDW 15.7 H (11.5-15.5) % Sodium 130 L (137-145) mmol/L Chloride 91 L (98-107) mmol/L Carbon Dioxide 32 H (22-30) mmol/L BUN 21 H (9-20) mg/dL Glucose 139 H (74-99) mg/dL Calcium 8.3 L (8.4-10.2) mg/dL Total Protein 6.1 L (6.3-8.2) g/dL Albumin 3.2 L (3.5-5.0) g/dL Triglycerides 278 H (<150) mg/dL HDL Cholesterol 37 L (40-60) mg/dL Assessment and Plan Plan: -Transient weakness in the left arm: Because of the resolution of the symptoms this is more consistent with TIA rather than be brachial plexus involvement because of the metastatic tumor. Neurology was consulted further workup as per neurology a CT angios the head and neck is within normal limits, echo and carotid Dopplers are essentially within normal limits patient will undergo MRI of the head along with the MRI of the cervical spine. -History of atrial fibrillation probably proximal A. fib patient is not on any anticoagulation at this time -Hyponatremia initially hypovolemic, presently secondary to SIADH, discontinue IV fluids -Acute renal failure: Improved with IV fluids -Hypomagnesemia and hypokalemia developed lites will be replaced -Hypertension -COPD without any acute exacerbation -Laryngeal cancer: Patient will continue his treatment regimen of chemotherapy and initiated radiation therapy -Continued nicotine use: Counseling was provided -DVT prophylaxis Lovenox
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
[2020-09-16 17:33] VITALS: RESP 18
--- NOTE | 2020-09-16 19:03 | MR ---
EXAMINATION TYPE: MR brain/cspine wo/w DATE OF EXAM: 09/16/2020 COMPARISON: None HISTORY: CONTRAST: Standard multiplanar, multisequence MRI departmental protocol utilizing 7.5 mL intravenous gadolinium contrast. FINDINGS: There is mild cerebral atrophy. There is no mass effect. On the T2 and FLAIR images there is 12 mm fo cus of increased signal in the stanford-white matter junction right parietal lobe. This shows increased s ignal on the diffusion images and consistent with an acute infarct. There is also nodular foci of inc reased signal right posterior parietal lobe cortex that measures overall 12 mm consistent with an acu te infarct. There are punctate areas of increased signal right parietal lobe cortex that measure 5 mm consistent with several focal cortical infarcts. There is no midline shift. I see no sign of intracr anial hemorrhage. The brainstem is intact. Corpus callosum is intact. Sella turcica appears normal. Cervical vertebra have normal alignment. There is some narrowing of C4-5 disc space. There is small p osterior disc herniation at C4-5. Spinal canal measures 6.5 mm at C4-5 and C5-6. I see no focal bone destruction. Cervical cord shows no edema. There is slight flattening of the cord at C4-5. Contrast images show no pathologic enhancement of the cervical spine. There is no pathologic enhancem ent of the brain. There is normal enhancement of the venous sinuses. There is arterial flow demonstra daya in the anterior middle and posterior cerebral arteries. There is arterial flow in the vertebrobas ilar artery system. Optic chiasm appears normal. Pituitary stalk is in the midline. IMPRESSION: There is evidence of acute infarcts involving the right parietal lobe cortex and the right posterior parietal white matter as above. Spondylotic changes in the cervical spine with mild spinal stenosis at C4-5 and C5-6. No evidence of any significant cord edema. Mild flattening of the cord at C4-5. Posterior mild disc herniation at C4 -5.
--- NOTE | 2020-09-16 19:32 | P.PN ---
Subjective Progress Note Date: 09/16/20 Principal diagnosis: Weakness Strength and coordination has improved further today. Patient seen earlier today, prior to MRI Brain/Cervical neck. Dictation this afternoon after MRI has been read and did reveal acute right infarcts. Neurology is following, defer further intervention. No apparent metastatic disease identified. Objective - Vital Signs Vital signs: Vital Signs Temp 98 F 09/16/20 16:00 Pulse 61 09/16/20 16:00 Resp 18 09/16/20 16:00 BP 100/65 09/16/20 16:00 Pulse Ox 100 09/16/20 16:00 Intake & Output 09/16/20 09/16/20 09/17/20 06:59 18:59 06:59 Weight 77.5 kg Other: Voiding Method Toilet Toilet - Exam - Constitutional Trach General appearance: cooperative, no acute distress - EENT Exudates, dry ral mucosa Eyes: poor dentition - Neck Evidence of Radaition and dry flaking skin, unilateral from known cancer - Respiratory Respiratory: bilateral: diminished - Cardiovascular Rhythm: regular Heart sounds: normal: S1, S2 - Gastrointestinal Feeding Tube General gastrointestinal: soft - Integumentary Integumentary: pale - Neurologic non focal - Musculoskeletal Musculoskeletal: generalized weakness, left sided weakness - Psychiatric Psychiatric: A&O x's 3, appropriate affect - Labs CBC & Chem 7: 09/16/20 08:52 09/16/20 08:52 Labs: Abnormal Lab Results - Last 24 Hours (Table) 09/15/20 09/16/20 09/16/20 Range/Units 09:00 08:52 08:52 RDW 15.7 H (11.5-15.5) % Sodium 130 L (137-145) mmol/L Chloride 91 L (98-107) mmol/L Carbon Dioxide 32 H (22-30) mmol/L BUN 21 H (9-20) mg/dL Glucose 139 H (74-99) mg/dL Calcium 8.3 L (8.4-10.2) mg/dL Total Protein 6.1 L (6.3-8.2) g/dL Albumin 3.2 L (3.5-5.0) g/dL Triglycerides 278 H (<150) mg/dL HDL Cholesterol 37 L (40-60) mg/dL Assessment and Plan (1) Squamous cell carcinoma of head and neck Current Visit: Yes Status: Acute Code(s): C76.0 - MALIGNANT NEOPLASM OF HEAD, FACE AND NECK SNOMED Code(s): 417938419 (2) Left arm weakness Current Visit: Yes Status: Acute Code(s): R29.898 - OTH SYMPTOMS AND SIGNS INVOLVING THE MUSCULOSKELETAL SYSTEM SNOMED Code(s): 056038123 Plan: Assessment and Recommendations: Head and Neck Cancer: - Status Post Cycle 2 of Cisplatin on September 11 - Dr. Rhoades consulted as unsure if he will continue radiation inpatient or completed Left Arm Weakness, decreased Cordination: - Agree with MRI Brain with and without given CTA head and Neck and Brain CT without is negative. Review of MRI did confirm acute right sided infarcts, defer to neuro. No metastatic disease identified. Physician Attest: I have completed the full history and physical and developed the above impression and plan, agree with above dictation by GRADY Hughes.
[2020-09-16] MEDS: ATORVASTATIN 40 MG TAB PO SCH (20:01)
[2020-09-17] MEDS: PANTOPRAZOLE 40 MG TABLET PO SCH (06:30)
[2020-09-17] MEDS ORDERED: MAGNESIUM SULFATE-D5W PMX 1 GM in DEXTROSE/WATER 1 100ML.BAG IVPB ONE (07:35)
[2020-09-17] MEDS: amLODIPine 10 MG TAB PO SCH (08:20)
[2020-09-17] MEDS: METOPROLOL TARTRATE 50 MG TAB PO SCH (08:21)
[2020-09-17] MEDS: HYDROcodone/APAP 15 ML SOLUTION PO PRN (08:25)
[2020-09-17 08:42] VITALS: BP 121/65; PULSE 64; TEMP 98.2
[2020-09-17] MEDS ORDERED: APIXABAN 5 MG TAB PO SCH (09:00)
[2020-09-17] MEDS ORDERED: ASPIRIN 325 MG TAB PO SCH (09:00)
--- NOTE | 2020-09-17 09:58 | P.DS ---
Providers Date of admission: 09/15/20 11:00 Attending physician: Jessica Mendoza Consults: 09/15/20 11:01 Consult Physician Routine Consulting Provider: Wm Naylor Consult Reason/Comments: oncological care Do you want consulting provider notified?: Yes Consult Physician Urgent Consulting Provider: Juwan Carrera Consult Reason/Comments: l arm weakness Do you want consulting provider notified?: Yes 09/15/20 14:15 Consult Physician Routine Consulting Provider: Wilmer Miguel Consult Reason/Comments: HX A-FIB, NO ANTICOAGS, POSSIABLE CVA Do you want consulting provider notified?: Yes 09/15/20 14:47 Consult Physician Routine Consulting Provider: Raymond Rhoades Consult Reason/Comments: currently undergoing radiation Do you want consulting provider notified?: Yes [facility]: 54-year-old male presenting to the emergency Department with difficulty using the left hand. Onset of symptoms was when he woke this morning around 4:30. Last known well was around 8 PM when he went to bed. Symptoms have been persistent. Patient has coordination problems more than actual weakness of the left hand. No loss of sensation. No other area of involvement. No headache or confusion or speech problem. Patient symptoms resolved shortly after he came to ER. 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 PET scan that was done in mid July didn't show significant metastatic disease except for lymphadenopathy and a subacute glottic of his laryngeal cancer. Patient although sepsis is a tracheostomy secretions are more than usual but not thick or discolored. 09/16/2020 Patient will undergo MRI of the head and cervical spine today. Patient was probably will be discharged tomorrow patient most probably has a transient ischemic attack. 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 09/17/2020 Patient had an MRI of brain and cervical spine MRI did show acute stroke involving the right parietal lobe which does explain the symptoms of weakness in his left arm. Patient does have history of atrial fibrillation will need El iquis patient will be resumed on Eliquis and if cleared by neurology patient will be discharged today, cardiac exam showed normal ejection fraction no intraventricular thrombus. CT of the cervical spine showed some degenerative disc disease beyond that no significant metastatic disease. PHYSICAL EXAMINATION: GENERAL: The patient is alert and oriented x3, not in any acute distress. Well developed, well nourished. HEENT: Pupils are round and equally reacting to light. EOMI. No scleral icterus. No conjunctival pallor. Normocephalic, atraumatic. No pharyngeal erythema. Patient has a tracheostomy in place CARDIOVASCULAR: S1 and S2 present. No murmurs, rubs, or gallops. PULMONARY: Chest is clear to auscultation, no wheezing or crackles. ABDOMEN: Soft, nontender, nondistended, normoactive bowel sounds. No palpable organomegaly. MUSCULOSKELETAL: No joint swelling or deformity. EXTREMITIES: No cyanosis, clubbing, or pedal edema. NEUROLOGICAL: Gross neurological examination did not reveal any focal deficits. SKIN: No rashes. Assessment and Plan Plan: -Transient weakness in the left arm: Patient has a embolic stroke involving the right cerebral hemisphere. CT angios the head and neck is within normal limits, echo and carotid Dopplers are essentially within normal limits patient will undergo MRI of the head along with the MRI of the cervical spine. -History of atrial fibrillation , persistent A. fib patient will be initiated on Eliquis -Hyponatremia initially hypovolemic, presently secondary to SIADH, -Acute renal failure: Improved with IV fluids -Hypomagnesemia and hypokalemia replaced -Hypertension -COPD without any acute exacerbation -Laryngeal cancer: Patient will continue his treatment regimen of chemotherapy and radiation therapy -Continued nicotine use: Counseling was provided Plan - Discharge Summary Discharge Rx Participant: No New Discharge Prescriptions: New Apixaban [Eliquis] 5 mg PO BID #60 tab Atorvastatin [Lipitor] 40 mg PO HS #30 tab Continue amLODIPine [Norvasc] 10 mg PO DAILY tiZANidine HCL 2 mg PO BID PRN PRN Reason: Muscle Pain Zolpidem [Ambien] 5 mg PO HS PRN PRN Reason: Insomnia Metoprolol Tartrate [Lopressor] 150 mg PO BID Omeprazole [PriLOSEC] 20 mg PO AC-BRKFST #90 cap LORazepam [Ativan] 0.5 mg PO DAILY PRN PRN Reason: Anxiety Hydrocodone/Acetaminophen [Hycet 7.5 mg-325 mg/15 ml Soln] 15 ml PO Q8H PRN PRN Reason: Pain Lidocaine Viscous 2% [Xylocaine Viscous] 15 ml MUCOUS MEM ACHS PRN PRN Reason: Pain Discharge Medication List Zolpidem [Ambien] 5 mg PO HS PRN 06/21/20 [History] amLODIPine [Norvasc] 10 mg PO DAILY 06/21/20 [History] tiZANidine HCL 2 mg PO BID PRN 06/21/20 [History] Metoprolol Tartrate [Lopressor] 150 mg PO BID 08/05/20 [History] Omeprazole [PriLOSEC] 20 mg PO AC-BRKFST #90 cap 08/11/20 [Rx] Hydrocodone/Acetaminophen [Hycet 7.5 mg-325 mg/15 ml Soln] 15 ml PO Q8H PRN 09/15/20 [History] LORazepam [Ativan] 0.5 mg PO DAILY PRN 09/15/20 [History] Lidocaine Viscous 2% [Xylocaine Viscous] 15 ml MUCOUS MEM ACHS PRN 09/15/20 [History] Apixaban [Eliquis] 5 mg PO BID #60 tab 09/17/20 [Rx] Atorvastatin [Lipitor] 40 mg PO HS #30 tab 09/17/20 [Rx] Follow up Appointment(s)/Referral(s): Morales Adorno MD [Primary Care Provider] - 3 Days Leoncio Cramer MD [REFERRING] - 1 Week [facility], [NON-STAFF] - Discharge Disposition: HOME SELF-CARE
--- NOTE | 2020-09-17 11:29 | P.PN ---
Subjective Progress Note Date: 09/17/20 She was seen at bedside he feels the same today compared to yesterday. Denies any worsening of his the left approximately weakness. Denies of any new neurological deficits. Patient stated that he wants to leave home today and he doesn't state any further in the hospital. MRI of the brain is reported as evidence of acute infarct involving the right parietal lobe cortex in the right posteror parietal white matter. MRI cervical spine is reported as spondylitic changes in the cervical spine with mild spinal stenosis at C4-C5 and C5-C6. No evidence of any significant cord edema. Mild flattening of the cord at C4-C5. Posterior mild disc herniation at C4-C5. Objective - Vital Signs Vital signs: Vital Signs Temp 98.2 F 09/17/20 08:37 Pulse 64 09/17/20 08:37 Resp 18 09/17/20 08:37 BP 121/65 09/17/20 08:37 Pulse Ox 100 09/17/20 08:37 Intake & Output 09/16/20 09/17/20 09/17/20 18:59 06:59 18:59 Intake Total 240 Balance 240 Weight 76.7 kg Intake: Oral 240 Other: Voiding Method Toilet Toilet Toilet - Exam GENERAL: The patient is lying in bed and is not in acute distress. HENT: +trach. NEUROLOGICAL: Higher mental function: The patient is awake, alert, oriented to self, place and time. Patient is following commands. No aphasia and no neglect. Cranial nerves: The pupils are round, equal and reactive to light and accommodation. Visual carey are full to confrontation throughout. Extraocular movement is intact no nystagmus is noted. Facial sensation is normal to touch throughout. The facial strength is normal throughout. Hearing is normal bilaterally to hand rub. Tongue is midline and moved [id number] without any difficulty. Mild dysarthria is noted (chronic). Shoulder shrug is normal bilaterally. Motor: Gait is normal with normal arms swings. The strength of the left upper extremity is 4+ to 5-. 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 Otherwise 5/5 throughout. Normal tone and bulk. Cerebellum: Normal finger to nose bilaterally. Sensation: Sensation is normal to touch throughout. Reflexes (right/left): 3+ bilateral patellar otherwise 2+ throughout. Plantars are downgoing bilaterally. 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 Onset is 4:30am today and last normal is 8pm yesterday. Acute ischemic stroke (Right parietal region). Symptoms of left upper extremity hemiparesis and transient paresthesia. 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 CT angiography of the head and neck was reported as no flow-limiting stenosis bilateral carotid bifurcation. Normal ak[place] of [place]. Lipid panel: Triglyceride of 278, cholesterol of 190, LDL of 97, and HDL 37. Carotid duplex: Is reported as after medical plaquing without significant flow limiting stenosis appeared large abnormal appearing lymph nodes within the left neck. Metastatic lesion should be considered. The patient was started on Eliquis 5 mg 1 tablet twice a day to the primary team and was already started on it early the morning which she had a dose and that aspirin was discontinued by the primary team. Continue Lipitor 40 mg daily for secondary stroke prophylaxis. 2-D echo was reported as moderate concentric left ventricular hypertrophy. Ejection fraction of 55-60%. Left atrium is mildly dilated. TSH level: Is 1.51 just considered normal. Physical therapy, Occupation therapy and speech therapy are consulted. Cardiology team is consulted because of the history of atrial fibrillation and possible acute stroke. Radiation oncology team is consulted. I wanted the patient stay at least one more day especially that he was started on Eliquis but he refuses and wants to go home. He was notified if he is discharged today and has new onset neurological deficits or worsening of his the weakness to come emergently to the hospital. Patient stated that he is to follow up with Dr. Jones in the past because of the carpal tunnel. I notified him that he needs to follow up as an outpatient with his neurologist upon discharge within 1-2 weeks. We'll defer the rest of the medical management to the primary team. Juwan Carrera MD Neuro-Hospitalist Time with Patient: Less than 30
[2020-09-17 11:35] VITALS: BMI 27.3
== END 2020-09-17 12:05 | disposition home or self-care (01) | DRG 65 ==
LOC: EC 08:26 → 3SCARD 11:00
PROVIDERS: ADMIT Internal Medicine; ATTEND Internal Medicine
DX: I63.40 Cerebral infarction due to embolism of unspecified cerebral artery (principal); I48.19 Other persistent atrial fibrillation; E22.2 Syndrome of inappropriate secretion of antidiuretic hormone; N17.9 Acute kidney failure, unspecified; I10 Essential (primary) hypertension; F17.200 Nicotine dependence, unspecified, uncomplicated; J44.9 Chronic obstructive pulmonary disease, unspecified; C32.9 Malignant neoplasm of larynx, unspecified; M50.221 Other cervical disc displacement at C4-C5 level; M48.02 Spinal stenosis, cervical region; M50.30 Other cervical disc degeneration, unspecified cervical region; Z20.822 Contact with and (suspected) exposure to COVID-19; E83.42 Hypomagnesemia; E86.1 Hypovolemia; E87.6 Hypokalemia; Z79.899 Other long term (current) drug therapy; Z93.1 Gastrostomy status; Z93.0 Tracheostomy status; Z92.3 Personal history of irradiation; Z92.21 Personal history of antineoplastic chemotherapy; Z85.819 Personal history of malignant neoplasm of unspecified site of lip, oral cavity, and pharynx; Z85.21 Personal history of malignant neoplasm of larynx; Z85.038 Personal history of other malignant neoplasm of large intestine; Z83.3 Family history of diabetes mellitus; Z80.1 Family history of malignant neoplasm of trachea, bronchus and lung
CPT/HCPCS: 36415; 70450; 70496; 70498; 70553; 71046; 72156; 80053; 80061; 83735; 84443; 84484; 85025; 85027; 85610; 85730; 87635; 93005; 93306; 93880; 96361; 96365; 99285

== ENCOUNTER → 2020-10-26 | Outpatient (CLI) | payer OTHER ==
[2020-10-26 14:27] LABS: African American GFR (CKD) >90 (>60 ml/min/1.73 sqM); Blood Urea Nitrogen 24 mg/dL (9-20); Non-African American GFR(CKD) >90 (>60 ml/min/1.73 sqM)
--- NOTE | 2020-10-26 15:22 | CT ---
EXAMINATION TYPE: CT chest w con DATE OF EXAM: 10/26/2020 COMPARISON: Prior PET/CT July 25, 2020 HISTORY: follow up abnormal suprahilar lymph node, history of throat cancer diagnosed June [address] DLP: 568 mGycm. Automated Exposure Control for Dose Reduction was Utilized. TECHNIQUE: CT scan of the thorax is performed following with IV Contrast, patient injected with 100 mL of Isovue 300. FINDINGS: LUNGS: Mild underlying emphysematous change. No suspicious intraparenchymal masses or nodules. No ple ural effusion or pneumothorax seen bilaterally. Tracheostomy tube redemonstrated. MEDIASTINUM: There are no new greater than 1 cm hilar or mediastinal lymph nodes. Prominent but subce ntimeter right paratracheal lymph node axial image 15 redemonstrated. No cardiomegaly or pericardia l effusion is seen. Moderate three-vessel coronary artery calcification. OTHER: New PEG Tube is identified and is satisfactory in position. Overlying coils from flat wall her elfego repair surgery redemonstrated. Persistent abnormal left supraclavicular lymph node measuring 1.3 x 1.3 cm axial image 3 just posterior and lateral to the left internal jugular vein corresponding to area of concern on PET/CT. Lesion slightly smaller from recent PET/CT. IMPRESSION: Suspicious 1.3 cm left clavicular lymph node at level of superior thyroid gland just abov e the tracheostomy tube corresponding to hypermetabolic lesion on PET CT is redemonstrated slightly d ecreased in size. No new nodules or adenopathy noted.
== END ==
LOC: RADCTMAIN 13:52
PROVIDERS: ATTEND Internal Medicine Hematology & Oncology
DX: C76.0 Malignant neoplasm of head, face and neck (principal)
CPT/HCPCS: 82565; 84520; 71260; 36415; Q9967

== ENCOUNTER → 2020-11-18 | Outpatient (CLI) | payer OTHER ==
[2020-11-18 09:57] LABS: Anisocytosis Slight; HCT 33.6 % (39.0-53.0); MCH 34.7 pg (25.0-35.0); MCHC 35.8 g/dL (31.0-37.0); MCV 96.8 fL (80.0-100.0); Macrocytosis Slight; Platelet Count 192 k/uL (150-450); RBC 3.47 m/uL (4.30-5.90); RDW 17.6 % (11.5-15.5); WBC 7.9 k/uL (3.8-10.6)
[2020-11-18 10:10] LABS: African American GFR (CKD) >90 (>60 ml/min/1.73 sqM); Anion Gap 10 mmol/L; Blood Urea Nitrogen 16 mg/dL (9-20); Carbon Dioxide 25 mmol/L (22-30); Chloride 101 mmol/L (98-107); Non-African American GFR(CKD) >90 (>60 ml/min/1.73 sqM); Potassium 4.3 mmol/L (3.5-5.1); Sodium 136 mmol/L (137-145)
== END | disposition home or self-care (01) ==
LOC: LABPAT 09:20
PROVIDERS: ATTEND Internal Medicine
DX: Z01.818 Encounter for other preprocedural examination (principal); I70.211 Atherosclerosis of native arteries of extremities with intermittent claudication, right leg
CPT/HCPCS: 36415; 80051; 82565; 84520; 85027

== ENCOUNTER 2020-12-10 06:24 | Day surgery (SDC) | payer OTHER ==
[~2020-12-10 06:24] MED LIST changes: +ALPRAZolam 0.25 MG TAB PO PRN; +ASPIRIN 325 MG TAB PO PRN; -LACTATED RINGERS 1,000 ML IV SCH; -LIDOCAINE 1% (10MG/ML) FOR IV START INTRADERMA PRN; +SODIUM CHLORIDE 0.9% 1,000 ML in EMPTY BAG 1 BAG IV ONE
[2020-12-10] MEDS ORDERED: LIDOCAINE 1% INJ 10MG/ML (20 ML MDV) ONE (07:26)
[2020-12-10] MEDS ORDERED: HEPARIN SODIUM 1,000 UN/ML (10ML VL) ONE (07:26)
[2020-12-10] MEDS ORDERED: fentaNYL (PF) 50 MCG/ML 2 ML AMP ONE (07:26)
[2020-12-10] MEDS ORDERED: CLOPIDOGREL 75 MG TAB ONE (07:30)
[2020-12-10] MEDS ORDERED: CLOPIDOGREL 75 MG TAB PO ONE (07:32)
[2020-12-10] MEDS ORDERED: fentaNYL (PF) 50 MCG/ML 2 ML AMP IV ONE (07:35)
[2020-12-10] MEDS ORDERED: MIDAZOLAM 2 MG/2 ML VIAL IV ONE (07:35)
[2020-12-10] MEDS ORDERED: LIDOCAINE 1% INJ 10MG/ML (20 ML MDV) SQ ONE (07:40)
[2020-12-10] MEDS ORDERED: HEPARIN SODIUM 1,000 UN/ML (10ML VL) IV ONE ×4 (07:46→08:52)
[2020-12-10] MEDS: NITROGLYCERIN 1000MCG/10ML SYRINGE INTRAARTER ONE ×2 (08:30→09:08)
[2020-12-10] MEDS ORDERED: IOPAMIDOL-250 100ML BTL INTRAARTER ONE ×3 (09:03→09:28)
[2020-12-10] MEDS ORDERED: ONDANSETRON 4 MG TAB PO PRN (09:59)
[2020-12-10] MEDS ORDERED: LORazepam 0.5 MG TAB PO PRN (09:59)
[2020-12-10] MEDS ORDERED: ALBUTEROL HFA INHALER INHALATION PRN (09:59)
[2020-12-10] MEDS ORDERED: tiZANidine 4 MG TAB PO PRN (09:59)
[2020-12-10] MEDS ORDERED: ZOLPIDEM 5 MG TAB PO PRN (09:59)
--- NOTE | 2020-12-10 11:28 | IR ---
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 TECHNIQUE: Fluoroscopy. COMPARISON: None. FINDINGS: Fluoroscopic guidance was provided during angiogram with angioplasty procedure performed hernandez Mas. A total of 19.9 minute of fluoroscopic time was utilized during the procedure and 47 6 spot images was acquired. Images acquired to access via right groin with subsequent abdominal angio gram images. Please refer to procedure note for further details. IMPRESSION: As Above.
[2020-12-10] MEDS: HYDROcodone/APAP 15 ML SOLUTION PO PRN ×2 (12:53→20:12)
[2020-12-10] MEDS: APIXABAN 5 MG TAB PO SCH (20:12)
[2020-12-10] MEDS ORDERED: ATORVASTATIN 40 MG TAB PO SCH (21:00)
--- NOTE | 2020-12-10 23:55 | P.PCN ---
Description of Procedure: PROCEDURES PERFORMED: Abdominal angiography with left lower extremity runoff, PARTS COUNTERPERSON of left SFA with a 5.0 x 80mm IN.PACT drug coated balloon, 5.0 Spider distal filter placement, aspiration thrombectomy of left SFA with Penumbra, PARTS COUNTERPERSON/ bare metal stent placement of the mid right common iliac artery with a 9.0 x 29mm Omnilink bare metal stent, Angioseal closure, ultrasound guided access INDICATION: Lifestyle inhibiting Kings class 3 claudication, abnormal US, PAD by angiography HISTORY: Patient is a pleasant 55-year-old male with history of tobacco abuse, recent laryngeal cancer status post tracheostomy, hypertension, persistent atrial fibrillation, TIA and PAD. He has been having claudication mainly on the right calf and therefore workup was performed with abnormal ultrasound and angiography was performed at [facility] 11/26/2020 which showed a 9% right common iliac stenosis as well as a left SFA 90% stenosis. Additionally below the knee he had 100% right anterior tibial and 100% left posterior tibial stenosis. Symptoms on the left hip progress as well and therefore patient was offered intervention and patient was agreeable. CONSENT:I have discussed the risks, benefits and alternative therapies for the above-mentioned procedure and for both sedation/analgesia as well as necessary blood product administration, if indicated, as they pertain to this patient. The patient has indicated understanding and acceptance of the risks and procedures discussed. PROCEDURE: After the risks, benefits and alternatives of the above mentioned procedure explained in detail with the patient, informed consent was obtained. Patient was taken to the catheterization lab and prepped and draped in usual fashion. 1% lidocaine was used to anesthetize the right femoral area. A 6- Beninese sheath was placed in the right common femoral artery using modified Seldinger technique and ultrasound guidance. IV heparin was given. Patient's symptoms on the left had progressed since 2 weeks earlier and therefore the decision was made to attempt intervention of the left SFA first. A 6Fr destination sheath was advanced however could not be advanced past the iliac lesion and therefore the iliac lesion was balloon dilated with a 8.0 x 20mm balloon. The destination sheath was then able to be easily advanced around to the left external iliac. Left lower extremity angiography was performed which showed worsened 100% SFA stenosis and concern of an acute on chronic process with some thrombus. Therefore the lesion was crossed with a 0.035 wire in a glide catheter. The 0.035 wire was exchanged for a 5.0 Spider filter which was placed at the left popliteal. Next balloon angioplasty was performed with a 4.0 balloon. Aspiration thrombectomy was performed with a Penumbra catheter. There appeared to adequate debulking and therefore a 5.0 x 5.0 x 80mm IN.PACT DCB was placed for 3 minutes. Preintervention there was 100% stenosis with incomplete distal flow and post intervention there was 20% residual stenosis with complete distal flow and no dissection. The distal filter was retrieved. Runoff showed no significant changed from preintervention with 2 vessel runoff. Final angiograms were performed. Next the 6Fr sheath was withdrawn into the right external iliac artery. A 9.0 x 29mm Omnilink bare metal stent was placed at the right common iliac artery. Final angiogram was performed through the sheath. Preintervention there was 95% stenosis and post intervention there was 0% residual stenosis without residual stenosis. Patient had 2+ distal AT and PT pulses with 2 vessel runoff. A right femoral angiogram was performed and anatomoy was suitable for closure. A 6Fr Angioseal was placed with hemostasis achieved. The patient tolerated the procedure well. Patient was transported back to the post catheterization holding area in stable condition. Conscious Sedation: Patient was monitored under the direct supervision of vision of myself for conscious sedation using Versed and fentanyl for a total duration of 125 minutes HEMODYNAMICS: Ao: 111/60 Right lower extremity: Right common iliac artery: There is 95% stenosis. Right external iliac artery: There is no significant stenosis. Right internal iliac artery: There is no significant stenosis. Right common femoral artery: There is no significant stenosis. Right profunda: There is no significant stenosis. Left lower extremity: Left common iliac artery: There is no significant stenosis. Left external iliac artery: There is no significant stenosis. Left internal iliac artery: There is 100% stenosis. Left common femoral artery: There is no significant stenosis. Left profunda: There is no significant stenosis. Left SFA: There is 100% stenosis. Left popliteal artery: There is no significant stenosis. Left tibioperoneal trunk: There is no significant stenosis. Left anterior tibial artery: There is no significant stenosis. Left porterior tibial artery: There appears to be a proximal 90% PT stenosis. Left peroneal artery: There is no significant stenosis. FINAL IMPRESSION: 1. Peripheral arterial disease as described above. 2. S/p successful PARTS COUNTERPERSON of left SFA with a 5.0 x 80mm IN.PACT drug coated balloon 3. S/p successful bare metal stent of right common iliac artery with a 9.0 x 29mm Omnilink PLAN: 1. Aggressive risk factor modification per most recent ACC/AHA guidelines. 2. Follow-up in the office in 1-2 weeks.
[2020-12-11] MEDS: METOPROLOL TARTRATE 50 MG TAB PO SCH ×2 (00:17→08:16)
[2020-12-11] MEDS: HYDROcodone/APAP 15 ML SOLUTION PO PRN (04:19)
[2020-12-11 05:21] LABS: Anisocytosis Slight; Basophils % (A) 0 %; Eosinophils # (A) 0.5 k/uL (0-0.7); Eosinophils % (A) 6 %; HCT 33.2 % (39.0-53.0); HGB 11.5 gm/dL (13.0-17.5); Lymphocytes # (A) 0.6 k/uL (1.0-4.8); Lymphocytes % (A) 7 %; MCH 34.2 pg (25.0-35.0); MCHC 34.5 g/dL (31.0-37.0); Macrocytosis Slight; Mean Platelet Volume 7.8; Monocytes # (A) 0.6 k/uL (0-1.0); Monocytes % (A) 7 %; Neutrophils # (A) 6.5 k/uL (1.3-7.7); Neutrophils % (A) 80 %; Platelet Count 173 k/uL (150-450); RBC 3.36 m/uL (4.30-5.90); WBC 8.2 k/uL (3.8-10.6)
[2020-12-11 05:41] LABS: African American GFR (CKD) >90 (>60 ml/min/1.73 sqM); Anion Gap 6 mmol/L; Blood Urea Nitrogen 21 mg/dL (9-20); Calcium 9.5 mg/dL (8.4-10.2); Carbon Dioxide 26 mmol/L (22-30); Chloride 101 mmol/L (98-107); Glucose 104 mg/dL (74-99); Non-African American GFR(CKD) >90 (>60 ml/min/1.73 sqM); Potassium 4.5 mmol/L (3.5-5.1); Sodium 133 mmol/L (137-145)
[2020-12-11] MEDS ORDERED: PANTOPRAZOLE 40 MG TABLET PO SCH (07:30)
[2020-12-11 07:34] VITALS: RESP 16; TEMP 98
[2020-12-11] MEDS: APIXABAN 5 MG TAB PO SCH (08:16)
[2020-12-11] MEDS ORDERED: LORATADINE 10 MG TAB PO SCH (09:00)
[2020-12-11] MEDS ORDERED: CLOPIDOGREL 75 MG TAB PO SCH (09:00)
[2020-12-11] MEDS ORDERED: amLODIPine 10 MG TAB PO SCH (09:00)
[2020-12-11] MEDS ORDERED: ASPIRIN 81 MG PO SCH (09:00)
[2020-12-11] MEDS ORDERED: MULTIVITAMINS, THERA 1 EACH TAB PO SCH (09:00)
[2020-12-11 10:20] VITALS: BMI 27.3
[2020-12-11 11:12] VITALS: BP 104/61; PULSE 81
--- NOTE | 2020-12-11 19:36 | P.DS ---
Providers Attending physician: Edilberto Mas DO Primary care physician: Tila Leone [facility] Course: Patient is a pleasant 55-year-old male with history of tobacco abuse, recent laryngeal cancer status post tracheostomy, hypertension, persistent atrial fibrillation, TIA and PAD. He has been having claudication mainly on the right calf and therefore workup was performed with abnormal ultrasound and angiography was performed at [facility] 11/26/2020 which showed a 95% right common iliac stenosis as well as a left SFA 90% stenosis. Additionally below the knee he had 100% right anterior tibial and 100% left posterior tibial stenosis. Symptoms on the left thigh claudication had progressed in the 2 weeks in between his last cath. Angiography was performed 12/10 which showed similar 95% right common iliac artery stenosis however left SFA had progressed to 100% stenosis. Intervention of the left SFA was performed with a DCB and Penumbra aspiration thrombectomy as well as bare metal stenting of the right common iliac artery. Patient had uneventful course other than some GERD with lying flat which he normally does not do. Therefore troponin was checked for completeness however was normal. His groin site was without hematoma and was stable for discharge home on 12/11. Lungs CTAB, no acute distress. Plan - Discharge Summary Discharge Rx Participant: Yes New Discharge Prescriptions: No Action amLODIPine [Norvasc] 10 mg PO DAILY tiZANidine HCL 4 mg PO BID PRN PRN Reason: Muscle Pain Zolpidem [Ambien] 5 mg PO HS PRN PRN Reason: Insomnia Metoprolol Tartrate [Lopressor] 150 mg PO BID LORazepam [Ativan] 0.5 mg PO DAILY PRN PRN Reason: Anxiety Hydrocodone/Acetaminophen [Hycet 7.5 mg-325 mg/15 ml Soln] 15 ml PO Q8H PRN PRN Reason: Pain Apixaban [Eliquis] 5 mg PO BID #60 tab Atorvastatin [Lipitor] 40 mg PO HS #30 tab Albuterol Inhaler [Ventolin Hfa Inhaler] 2 puff INHALATION RT-QID PRN PRN Reason: Shortness Of Breath Ondansetron [Zofran] 4 mg PO TID PRN PRN Reason: Nausea Multivitamins, Thera [Multivitamin (formulary)] 1 tab PO DAILY Pantoprazole Sodium [Protonix] 40 mg PO DAILY Luca's 1 dose PO QID Cetirizine HCl [Zyrtec] 10 mg PO DAILY Clopidogrel [Plavix] 75 mg PO DAILY Discharge Medication List Zolpidem [Ambien] 5 mg PO HS PRN 06/21/20 [History] amLODIPine [Norvasc] 10 mg PO DAILY 06/21/20 [History] tiZANidine HCL 4 mg PO BID PRN 06/21/20 [History] Metoprolol Tartrate [Lopressor] 150 mg PO BID 08/05/20 [History] Hydrocodone/Acetaminophen [Hycet 7.5 mg-325 mg/15 ml Soln] 15 ml PO Q8H PRN 09/15/20 [History] LORazepam [Ativan] 0.5 mg PO DAILY PRN 09/15/20 [History] Apixaban [Eliquis] 5 mg PO BID #60 tab 09/17/20 [Rx] Atorvastatin [Lipitor] 40 mg PO HS #30 tab 09/17/20 [Rx] Albuterol Inhaler [Ventolin Hfa Inhaler] 2 puff INHALATION RT-QID PRN 12/08/20 [History] Cetirizine HCl [Zyrtec] 10 mg PO DAILY 12/08/20 [History] Luca's 1 dose PO QID 12/08/20 [History] Multivitamins, Thera [Multivitamin (formulary)] 1 tab PO DAILY 12/08/20 [History] Ondansetron [Zofran] 4 mg PO TID PRN 12/08/20 [History] Pantoprazole Sodium [Protonix] 40 mg PO DAILY 12/08/20 [History] Clopidogrel [Plavix] 75 mg PO DAILY 12/10/20 [History] Follow up Appointment(s)/Referral(s): Edilberto Mas DO [STAFF PHYSICIAN] - 12/18/20 2:15 pm (APPOINTMENT MADE ON December @ 2:15PM ) Patient Instructions/Handouts: Peripheral Vascular Angioplasty (DC), Peripheral Vascular Stent Placement (DC) Discharge Disposition: HOME SELF-CARE
--- NOTE | 2020-12-15 10:02 | CDI ---
Outpatient Documentation Clarification Form Date: 12/15/20 CDS.Bullet Casting Operator Name: Yaneth Reveles Phone: If any questions, call Kristen Meek, Perfume Maker [phone] Patient Name: Marco Rodriguez Admit Date: 12/10/20 Discharge Date: 12/11/20 ATTENTION: The [facility] Coding Staff appreciate your assistance in clarifying documentation. Please respond to the clarification below the line at the bottom and electronically sign. The [facility] coding Staff will review the response and follow-up if needed. Please note: Queries are made a part of the Legal Health Record. If you have any questions, please contact the Coding Manger. Dear Dr. Mas" Please provide clarification as to the cause of the occlusive PAD. PAD/PVD is considered unspecified. Greatest specificity is required for medical necessity support. SFA is specified as thrombus. Iliac artery is not specified. Is underlying cause of the Occlusive PAD one of the following: Arteriosclerotic disease of the arteries Arteritis Necrotic Due to embolism/thrombosis Other - please specify below Arteriosclerotic disease of the arteries MTDD
== END 2020-12-11 12:26 | disposition home or self-care (01) ==
LOC: CATHCVL 06:24 → 6NMEDSUR 09:30 → CATHCVL 12-11 12:26
PROVIDERS: ATTEND Internal Medicine
DX: I70.212 Atherosclerosis of native arteries of extremities with intermittent claudication, left leg (principal); I74.3 Embolism and thrombosis of arteries of the lower extremities; I10 Essential (primary) hypertension; R06.02 Shortness of breath; I48.19 Other persistent atrial fibrillation; Z20.822 Contact with and (suspected) exposure to COVID-19; F17.210 Nicotine dependence, cigarettes, uncomplicated; Z86.73 Personal history of transient ischemic attack (TIA), and cerebral infarction without residual deficits; K52.9 Noninfective gastroenteritis and colitis, unspecified; Z85.21 Personal history of malignant neoplasm of larynx; E78.5 Hyperlipidemia, unspecified; Z79.01 Long term (current) use of anticoagulants; Z79.02 Long term (current) use of antithrombotics/antiplatelets; Z79.899 Other long term (current) drug therapy
CPT/HCPCS: 37184; 37221; 37226; 85347; 80048; 84484; 85025; 87635; C1769 ×6; C1760; C1894 ×2; C1725 ×2; C1876; C1884; C2623; C1757; J2250; J2001; J3010; J1644; Q9966

== ENCOUNTER 2020-12-11 18:48 | Emergency (ER) | payer OTHER ==
[2020-12-11 18:55] VITALS: TEMP 97.9
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
--- NOTE | 2020-12-11 19:53 | XR ---
EXAMINATION TYPE: XR chest 2V DATE OF EXAM: 12/11/2020 COMPARISON: September 15, 2020 HISTORY: Hemoptysis Heart is normal. Lungs are clear of consolidation. There are no hilar masses. There are small linear density in the lingula left upper lobe. Costophrenic angles are clear. There is malalignment at the right AC joint consistent with old ligamentous tear. IMPRESSION: Normal heart. Minimal subsegmental atelectasis in the lingula left upper lobe. This appears new compared to old exam.
[2020-12-11 20:32] LABS: Anisocytosis Slight; Basophils % (A) 0 %; Eosinophils # (A) 0.4 k/uL (0-0.7); Eosinophils % (A) 5 %; HCT 34.6 % (39.0-53.0); HGB 11.5 gm/dL (13.0-17.5); Lymphocytes # (A) 0.7 k/uL (1.0-4.8); Lymphocytes % (A) 8 %; MCH 33.6 pg (25.0-35.0); MCHC 33.3 g/dL (31.0-37.0); MCV 100.7 fL (80.0-100.0); Macrocytosis Slight; Mean Platelet Volume 8.1; Monocytes # (A) 0.6 k/uL (0-1.0); Monocytes % (A) 7 %; Neutrophils # (A) 6.7 k/uL (1.3-7.7); Neutrophils % (A) 78 %; Platelet Count 189 k/uL (150-450); RBC 3.43 m/uL (4.30-5.90); RDW 16.7 % (11.5-15.5); WBC 8.5 k/uL (3.8-10.6)
[2020-12-11 20:39] LABS: ALT 10 U/L (4-49); AST 18 U/L (17-59); African American GFR (CKD) >90 (>60 ml/min/1.73 sqM); Albumin 3.9 g/dL (3.5-5.0); Alkaline Phosphatase 94 U/L (38-126); Anion Gap 10 mmol/L; Blood Urea Nitrogen 26 mg/dL (9-20); Calcium 9.4 mg/dL (8.4-10.2); Carbon Dioxide 24 mmol/L (22-30); Chloride 100 mmol/L (98-107); Glucose 87 mg/dL (74-99); Non-African American GFR(CKD) >90 (>60 ml/min/1.73 sqM); Potassium 4.3 mmol/L (3.5-5.1); Prothrombin Time 10.7 sec (9.0-12.0); Sodium 134 mmol/L (137-145); Total Bilirubin 0.6 mg/dL (0.2-1.3); Total Protein 6.8 g/dL (6.3-8.2)
[2020-12-11 21:04] VITALS: BP 104/62; PULSE 70; RESP 16
== END 2020-12-11 21:10 | disposition home or self-care (01) ==
LOC: EC 18:48
DX: R04.2 Hemoptysis (principal); F41.9 Anxiety disorder, unspecified; I10 Essential (primary) hypertension; I48.91 Unspecified atrial fibrillation; J44.9 Chronic obstructive pulmonary disease, unspecified; F17.200 Nicotine dependence, unspecified, uncomplicated; K21.9 Gastro-esophageal reflux disease without esophagitis; M19.90 Unspecified osteoarthritis, unspecified site; Z79.01 Long term (current) use of anticoagulants; Z79.02 Long term (current) use of antithrombotics/antiplatelets; Z86.73 Personal history of transient ischemic attack (TIA), and cerebral infarction without residual deficits; Z93.0 Tracheostomy status; Z93.1 Gastrostomy status
CPT/HCPCS: 36415; 71046; 80053; 85025; 85610; 85730; 99283

== ENCOUNTER → 2020-12-25 | Outpatient (CLI) | payer OTHER ==
--- NOTE | 2020-12-28 15:46 | PE ---
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 Localization and attenuation correction CT scan was performed. Small [id number] imaging obtained through the head and neck. Correlation prior CT brain 09/15/2020, prior nuclear medicine PET/CT 07/25/2020 Chest and neck: The previously identified supraclavicular node with hypermetabolic uptake on the left is no longer enlarged, no longer seen. Previously enlarged jugulodigastric node is no longer seen, t here is no associated hypermetabolic uptake at this level. The level of the piriform sinus and the le ft is resolution of the hypermetabolic uptake. There is uptake along the tongue. Tracheostomy tube re tigre in place. There is no evident lung mass, no pleural or pericardial effusion. There are coronary artery calcific ations present. ABDOMEN: No evident liver mass. No retroperitoneal adenopathy. Gastrostomy tube is present. No pelvic adenopathy or free fluid. osseous structures show no suspicious uptake. IMPRESSION: There has been tumor response as described.
== END | disposition home or self-care (01) ==
LOC: RADPETMAIN 14:06
PROVIDERS: ATTEND Radiology Radiation Oncology
DX: C76.0 Malignant neoplasm of head, face and neck (principal); I25.10 Atherosclerotic heart disease of native coronary artery without angina pectoris; Z93.1 Gastrostomy status; Z93.0 Tracheostomy status
CPT/HCPCS: 78815; A9552

== ENCOUNTER → 2021-01-12 | Outpatient (CLI) | payer OTHER ==
--- NOTE | 2021-01-12 11:42 | FL ---
COMPARISON: NONE DATE OF EXAM: 01/12/2021 HISTORY: Dysphasia A number of thin and thick substances were ingested under the care of the department of speech pathol ogy. There is a small amount of penetration with all substances ingested. No marin aspiration. Ther e is no evidence of obstruction. 1 minute 11 seconds of fluoroscopy provided. No images submitted. IMPRESSION: 1. Small amount of penetration with all substances ingested.
== END | disposition home or self-care (01) ==
LOC: RADFLMAIN 10:48
PROVIDERS: ATTEND Otolaryngology
DX: R13.10 Dysphagia, unspecified (principal)
CPT/HCPCS: 74230

== ENCOUNTER → 2021-04-14 | Outpatient (CLI) | payer OTHER ==
--- NOTE | 2021-04-15 14:59 | CT ---
EXAMINATION TYPE: CT neck chest w/wo con DATE OF EXAM: 04/14/2021 COMPARISON: CT chest 10/26/2020 HISTORY: Malignant neoplasm of pyriform sinus CT DLP: 1546.6 mGycm Automated exposure control for dose reduction was used. Contrast: 100 mL Isovue-300 with 100 mL saline Technique: Axial images 3 mm thick sections of the soft tissues of the neck. Axial images were obtain ed through the thorax 5 mm thick sections. FINDINGS: Tracheostomy tube is in the midline. Vascular calcifications within the great vessels. Submandibular glands appear normal. Chronic glands are symmetrical. Clinical Editor spaces are normal. There is fullness to the right torus tubarius. Fossa R osenmuller not well visualized. There is a prominent left parapharyngeal space lymph node measuring 1 .0 cm. Additional smaller lymph nodes are present on the left. A left small carotid sheath lymph node is present. There is poor visualization to the hypopharynx. Underlying mass would be difficult to exclude Vocal cord level appears symmetrical. The bone is normal. Carotid bifurcation calcifications noted. P revertebral space is normal. Vertebral body alignment is normal. No spinal canal stenosis is identifi ed. There is a 0.7 cm nodule within the anterior left upper lobe. Series 6 image 20. A 0.4 cm density is in the anterior left upper lobe series 6 image 22. 0.6 cm nodule is prominent within the anterior rig ht midlung. Series 6 image 26. 0.3 cm densities in the anterior left midlung. Series 6 image 27. Ther e is a 0.6 cm nodule within the right mid lung. Series 6 image 31 additional smaller ill-defined dens ities are present on the left. Findings are nonspecific. Nodules are new from comparison. Metastatic disease is not excluded. No suspicious mediastinal or hilar lymph nodes are evident. The ascending thoracic aorta at the level of main pulmonary artery is 3.4 cm. Main pulmonary artery bifurcation is 3.0 cm. Mild coronary arter y calcification is present. Limited CT sections are obtained through the upper abdomen which appears unremarkable. The pancreas i s atrophic. IMPRESSION: 1. MULTIPLE NEW ILL-DEFINED DENSITIES AND NODULES WITHIN THE LUNG GEE. METASTATIC DISEASE SHOULD B E CONSIDERED. PET/CT COULD BE UTILIZED TO FURTHER EVALUATE. 2. PROMINENT LEFT PARAPHARYNGEAL 1 CM LYMPH NODE OR A 3. FULLNESS WITHIN THE TORUS TUBARIUS GREATER ON THE RIGHT.
== END | disposition home or self-care (01) ==
LOC: RADCTMAIN 08:42
PROVIDERS: ATTEND Radiology Radiation Oncology
DX: C12 Malignant neoplasm of pyriform sinus (principal); J98.4 Other disorders of lung
CPT/HCPCS: 70492; 71270; Q9967

== ENCOUNTER 2021-04-20 14:18 | Observation (INO) | payer OTHER ==
[2021-04-20] MEDS ORDERED: SODIUM CHLORIDE 0.9% 500 ML 500 ML IV ONE (15:22)
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
[2021-04-20 15:56] LABS: ALT 12 U/L (4-49); AST 39 U/L (17-59); African American GFR (CKD) >90 (>60 ml/min/1.73 sqM); Albumin 4.1 g/dL (3.5-5.0); Alkaline Phosphatase 97 U/L (38-126); Anion Gap 7 mmol/L; Blood Urea Nitrogen 16 mg/dL (9-20); Calcium 9.4 mg/dL (8.4-10.2); Carbon Dioxide 24 mmol/L (22-30); Chloride 104 mmol/L (98-107); Glucose 88 mg/dL (74-99); Non-African American GFR(CKD) >90 (>60 ml/min/1.73 sqM); Potassium 4.8 mmol/L (3.5-5.1); Sodium 135 mmol/L (137-145); Total Bilirubin 0.5 mg/dL (0.2-1.3); Total Protein 7.1 g/dL (6.3-8.2)
[2021-04-20] MEDS ORDERED: SODIUM CHLORIDE 0.9% 1,000 ML IV ONE (16:59)
[2021-04-20 17:19] LABS: Basophils % (A) 0 %; Eosinophils # (A) 0.3 k/uL (0-0.7); Eosinophils % (A) 4 %; HCT 40.6 % (39.0-53.0); HGB 13.9 gm/dL (13.0-17.5); Lymphocytes # (A) 1.1 k/uL (1.0-4.8); Lymphocytes % (A) 14 %; MCH 33.7 pg (25.0-35.0); MCHC 34.3 g/dL (31.0-37.0); MCV 98.3 fL (80.0-100.0); Mean Platelet Volume 8.9; Monocytes # (A) 0.6 k/uL (0-1.0); Monocytes % (A) 7 %; Neutrophils # (A) 5.6 k/uL (1.3-7.7); Neutrophils % (A) 73 %; Platelet Count 171 k/uL (150-450); Poikilocytosis Slight; RBC 4.13 m/uL (4.30-5.90); RDW 15.3 % (11.5-15.5); WBC 7.6 k/uL (3.8-10.6)
[2021-04-20 17:53] LABS: Anisocytosis (M) Present
[2021-04-20] MEDS ORDERED: ALBUTEROL NEBULIZED 2.5 MG/3 ML INHALATION PRN (22:44)
[2021-04-20] MEDS ORDERED: ZOLPIDEM 5 MG TAB PO PRN (22:44)
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
[2021-04-21] MEDS: HYDROcodone/APAP 15 ML SOLUTION PO PRN ×3 (00:07→17:34)
[2021-04-21] MEDS: IPRATROPIUM 0.5 MG/2.5 ML NEBU INHALATION SCH ×4 (07:52→20:44)
[2021-04-21] MEDS: FORMOTEROL FUMARATE 20 MCG/2 ML NEBU INHALATION SCH ×2 (07:52→20:44)
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
[2021-04-21] MEDS: amLODIPine 10 MG TAB PO SCH (13:50)
[2021-04-21] MEDS: PANTOPRAZOLE 40 MG TABLET PO SCH (13:50)
[2021-04-21] MEDS: METOPROLOL TARTRATE 50 MG TAB PO SCH ×2 (13:50→21:01)
[2021-04-21] MEDS: LORATADINE 10 MG TAB PO SCH (13:50)
[2021-04-21] MEDS: ATORVASTATIN 40 MG TAB PO SCH (21:00)
[2021-04-22] MEDS: HYDROcodone/APAP 15 ML SOLUTION PO PRN ×4 (00:14→20:29)
[2021-04-22] MEDS: PANTOPRAZOLE 40 MG TABLET PO SCH (07:22)
[2021-04-22] MEDS: LORATADINE 10 MG TAB PO SCH (08:49)
[2021-04-22] MEDS: METOPROLOL TARTRATE 50 MG TAB PO SCH ×2 (08:49→20:30)
[2021-04-22] MEDS: amLODIPine 10 MG TAB PO SCH (08:49)
[2021-04-22] MEDS: IPRATROPIUM 0.5 MG/2.5 ML NEBU INHALATION SCH ×4 (09:00→19:22)
[2021-04-22] MEDS: FORMOTEROL FUMARATE 20 MCG/2 ML NEBU INHALATION SCH ×2 (09:00→19:22)
--- NOTE | 2021-04-22 12:08 | P.PN ---
Subjective Progress Note Date: 04/22/21 Patient is a 55-year-old male with a known history of atrial fibrillation on anticoagulation with Eliquis, hypertension, osteoarthritis, laryngeal cancer diagnosed in June 2020 status post clip placement and chemotherapy x3 sessions and radiation x35 sessions. Patient did have PEG tube previously and was removed since the patient was able to eat. Recently patient has been aspirating and unable to tolerate oral diet very well. Patient states that he is aspirating through the tracheostomy tube. Patient was seen by oncology in the clinic and was sent to ER for possible PEG tube placement. Patient denied any complaints of chest pain or shortness of. No fever no chills. No headache or dizziness or lightheadedness. No nausea vomiting abdominal pain or diarrhea. No cough or sputum production. Laboratory showed WBC 7.6 hemoglobin 13.9 and platelets 171 Sodium 135 potassium 4.8 chloride 104 bicarb is 24 BUN 16 creatinine 0.69 and other laboratories are reviewed. 04/22/2021 Patient is seen and evaluated in follow-up this morning with no acute overnight issues. Patient is currently nothing by mouth and scheduled to receive a PEG tube with surgery today. Patient continues to have aspirations and unable to tolerate oral diet. Review of systems: Constitutional: No reports of fatigue, fever, or chills Cardiovascular: No reports of chest pain or palpitations Respiratory: No reports of shortness of breath or cough GI: No reports of nausea, vomiting, or diarrhea : No reports of dysuria or retention Neurovascular: No reports of weakness or numbness All medications have been reviewed Objective - Vital Signs Vital signs: Vital Signs Temp 98.5 F 04/22/21 04:12 Pulse 70 04/22/21 04:12 Resp 16 04/22/21 04:12 BP 137/77 04/22/21 04:12 Pulse Ox 98 04/22/21 04:12 Intake & Output 04/21/21 04/22/21 04/22/21 18:59 06:59 18:59 Intake Total 225 590 Balance 225 590 Weight 74.979 kg Intake: Intake, IV Titration 225 Amount Sodium Chloride 0.9% 1, 225 000 ml @ 75 mls/hr IV . [id number] ONE Rx#:[id number] Oral 590 Other: # Voids 2 - Exam Patient is sitting up in the bed comfortably, no acute distress, awake alert and oriented.. HEENT: Normocephalic. Neck is supple. Pupils reactive. Nostrils clear. Oral cavity is moist. Neck reveals no JVD, carotid bruits, or thyromegaly. CHEST EXAMINATION: Trachea is central. Tracheostomy with trach collar. No purulent secretions..Symmetrical expansion. Lung carey clear to auscultation and percussion. CARDIAC: Normal S1, S2 with no gallops. No murmurs ABDOMEN: Soft. Bowel sounds normal. No organomegaly. No abdominal bruits. Extremities: reveal no edema. No clubbing or cyanosis Neurologically awake, alert, oriented x3 with well-coordinated movements. No focal deficits noted Skin: No rash or skin lesions. Psychiatric: Cooperative. Non-suicidal Musculoskeletal: No joint swelling or deformity. Normal range of motion. - Labs CBC & Chem 7: 04/20/21 16:48 04/20/21 15:37 Assessment and Plan Assessment: Laryngeal cancer status post tracheostomy with intermittent aspiration History of chemotherapy x3 sessions and 35 radiation treatments. Paroxysmal atrial fibrillation on anticoagulation with Eliquis. COPD Currently everyday smoker Hypertension GERD Osteoarthritis History of rheumatic fever Cervical and low back pain History of CVA in September 2020 with no residual deficits. Anxiety DVT prophylaxis patient is already on Eliquis. Plan: Patient is currently nothing by mouth and plans are for PEG tube placement today and will await report. Anticoagulation along with Plavix has been on hold along with other oral medications. Vital signs are stable. No acute issues noted overnight. Discussed with the patient about discharge planning and patient states he did have a PEG tube previously and continues to have all the necessary equipment to continue with tube feedings once discharged. Will discuss with case management and dietitian about tube feedings and any discharge planning needs. Also discussed with the patient that patient remains no PEG tube activity for 24 hours once PEG tube is placed and will discuss with surgery a bout when to initiate tube feedings and the use of PEG tube. Will continue to monitor closely. Smoking cessation has been counseled extensively. Possible discharge in 24-48 hours.
[2021-04-22] MEDS ORDERED: PROPOFOL 10 MG/ML 20 ML VIAL IV ONE (12:47)
[2021-04-22] MEDS ORDERED: IV FLUID CONTINUATION 300 ML IV ONE (12:49)
--- NOTE | 2021-04-22 13:21 | P.PCN ---
Date of Procedure: 04/22/21 Procedure(s) Performed: PREOPERATIVE DIAGNOSIS: Aspiration POSTOPERATIVE DIAGNOSIS: Same PROCEDURE: EGD with PEG tube placement SURGEON: Ruddy EBL: Minimal ANESTHESIA: Sedation COMPLICATIONS: None OPERATIVE PROCEDURE: The patient was placed in the supine position on the endoscopy table. The patient was sedated per anesthesia that time. The Olympus gastroscope was inserted into the oropharynx and passed under direct visualization to the region of the duodenum. No obstruction was seen. The pylorus was widely patent. The stomach was carefully inspected. The stomach was fully insufflated with air. The abdominal wall was inspected. The light was seen shining through the abdominal wall in the left upper quadrant. This was at the site of previous catheter placement. This site was chosen for PEG tube placement. The area was prepped in the usual sterile fashion. This area was then localized with lidocaine. No air was evident when aspirating while advancing the localizing needle into the stomach until the stomach was reached. A small vertical incision was made using the scalpel. The Seldinger needle was advanced into the lumen of the stomach the wire was advanced. The wire was grasped with an endoscopic snare. The wire was pulled through the oropharynx. The catheter was then connected to the guidewire and the guidewire and catheter were pulled anteriorly until the hub of the PEG tube catheter was seated against the anterior wall the stomach. The circular bolster was applied and tightened down. The endoscope was then readvanced into the stomach. There was no evidence of any bleeding and there was appropriate tightness on the bolster. The catheter was cut appropriately. The dual port feeding adapter was applied. DISPOSITION: Stable to recovery room
--- NOTE | 2021-04-22 14:04 | P.PN ---
Subjective Progress Note Date: 04/21/21 Principal diagnosis: Laryngeal cancer status post tracheostomy with intermittent aspiration Patient is a 55-year-old male with a known history of atrial fibrillation on anticoagulation with Eliquis, hypertension, osteoarthritis, laryngeal cancer diagnosed in June 2020 status post clip placement and chemotherapy x3 sessions and radiation x35 sessions. Patient did have PEG tube previously and was removed since the patient was able to eat. Recently patient has been aspira ting and unable to tolerate oral diet very well. Patient states that he is aspirating through the tracheostomy tube. Patient was seen by oncology in the clinic and was sent to ER for possible PEG tube placement. Patient denied any complaints of chest pain or shortness of. No fever no chills. No headache or dizziness or lightheadedness. No nausea vomiting abdominal pain or diarrhea. No cough or sputum production. Laboratory showed WBC 7.6 hemoglobin 13.9 and platelets 171 Sodium 135 potassium 4.8 chloride 104 bicarb is 24 BUN 16 creatinine 0.69 and other laboratories are reviewed. 04/21/21 Pt. is awake alert and oriented. no FC//N/V or abd. pain. Gen surgery is palnning for PEG tube placement tomorrow. Current medications and labs reviewed. Objective - Vital Signs Vital signs: Vital Signs Temp 98.3 F 04/20/21 14:57 Pulse 88 04/21/21 08:13 Resp 20 04/21/21 07:25 BP 124/72 04/21/21 07:25 Pulse Ox 97 04/21/21 07:25 Intake & Output 04/20/21 04/21/21 04/21/21 18:59 06:59 18:59 Weight 74.979 kg - Exam PHYSICAL EXAMINATION: Patient is lying in the bed comfortably, no acute distress, awake alert and oriented.. HEENT: Normocephalic. Neck is supple. Pupils reactive. Nostrils clear. Oral cavity is moist. Neck reveals no JVD, carotid bruits, or thyromegaly. CHEST EXAMINATION: Trachea is central. Tracheostomy with trach collar. No purulent secretions..Symmetrical expansion. Lung carey clear to auscultation and percussion. CARDIAC: Normal S1, S2 with no gallops. No murmurs ABDOMEN: Soft. Bowel sounds normal. No organomegaly. No abdominal bruits. Extremities: reveal no edema. No clubbing or cyanosis Neurologically awake, alert, oriented x3 with well-coordinated movements. No focal deficits noted Skin: No rash or skin lesions. Psychiatric: Coperative. Nonsuicidal Musculoskeletal: No joint swelling or deformity. Normal range of motion. - Labs CBC & Chem 7: 04/20/21 16:48 04/20/21 15:37 Labs: Abnormal Lab Results - Last 24 Hours (Table) 04/20/21 04/20/21 Range/Units 15:37 16:48 RBC 4.13 L (4.30-5.90) m/uL Sodium 135 L (137-145) mmol/L Assessment and Plan Assessment: Laryngeal cancer status post tracheostomy with intermittent aspiration History of chemotherapy x3 sessions and 35 radiation treatments. Paroxysmal atrial fibrillation on anticoagulation with Eliquis. COPD Currently everyday smoker Hypertension GERD Osteoarthritis History of rheumatic fever Cervical and low back pain History of CVA in September 2020 with no residual deficits. Anxiety DVT prophylaxis patient is already on Eliquis. Plan: Patient will be kept nothing by mouth until surgery evaluation. Plavix and Eliquis is on hold. General surgery is planning for PEG tube placement tomorrow. Continue with other blood pressure medications and pain management and bowel regimen. Continue to follow closely. Smoking cessation has been counseled extensively. Time with Patient: Greater than 30
[2021-04-22] MEDS: ATORVASTATIN 40 MG TAB PO SCH (20:30)
[2021-04-23] MEDS: HYDROcodone/APAP 15 ML SOLUTION PO PRN ×2 (03:40→09:30)
[2021-04-23] MEDS: IPRATROPIUM 0.5 MG/2.5 ML NEBU INHALATION SCH ×3 (07:18→15:46)
[2021-04-23] MEDS: FORMOTEROL FUMARATE 20 MCG/2 ML NEBU INHALATION SCH (07:18)
[2021-04-23] MEDS: LORATADINE 10 MG TAB PO SCH (09:29)
[2021-04-23] MEDS: PANTOPRAZOLE 40 MG TABLET PO SCH (09:29)
[2021-04-23] MEDS: METOPROLOL TARTRATE 50 MG TAB PO SCH (09:29)
[2021-04-23] MEDS: amLODIPine 10 MG TAB PO SCH (09:29)
--- NOTE | 2021-04-23 11:40 | P.PN ---
<Otilia Arvizu - Last Filed: 04/23/21 11:37> Subjective Progress Note Date: 04/23/21 CHIEF COMPLAINT: Aspiration HISTORY OF PRESENT ILLNESS: Patient is status post PEG tube placement. He reports minimal pain only with movement at the PEG tube site. He denies any nausea or vomiting. Tube feedings will be started today. Discussed with dietitian. Patient is requesting bolus feedings. Patient denies any nausea or vomiting. He's afebrile. PHYSICAL EXAM: VITAL SIGNS: Reviewed. GENERAL: Well-developed in no acute distress. HEENT: No sclera icterus. Extraocular movements grossly intact. Moist buccal mucosa. Head is atraumatic, normocephalic. ABDOMEN: Soft. Nondistended. Nontender. PEG tube site clean dry and intact NEUROLOGIC: Alert and oriented. Cranial nerves II through XII grossly intact. ASSESSMENT: 1. Aspiration status post EGD with PEG tube placement PLAN: -Bolus tube feedings can be started today. -Follow dietitian recommendations on bolus feedings -Patient Eliquis can be restarted tomorrow -Patient can be discharged from surgical standpoint if he tolerates his first bolus feeding Physician Frame Straightener note has been reviewed by physician. Signing provider agrees with the documented findings, assessment, and plan of care. Objective - Vital Signs Vital signs: Vital Signs Temp 98.3 F 04/23/21 04:14 Pulse 78 04/23/21 11:19 Resp 16 04/23/21 04:14 BP 117/63 04/23/21 04:14 Pulse Ox 96 04/23/21 04:14 Intake & Output 04/22/21 04/23/21 04/23/21 18:59 06:59 18:59 Intake Total 200 Balance 200 Weight 74.979 kg 77.111 kg Intake: IV 200 Other: # Voids 2 - Labs CBC & Chem 7: 04/20/21 16:48 04/20/21 15:37 <Anjum Fox - Last Filed: 04/23/21 11:44> Subjective As above. Patient doing well today. May discharge. Follow-up one week. Objective - Vital Signs Vital signs: Vital Signs Temp 98.3 F 04/23/21 04:14 Pulse 78 04/23/21 11:19 Resp 16 04/23/21 04:14 BP 117/63 04/23/21 04:14 Pulse Ox 96 04/23/21 04:14 Intake & Output 04/22/21 04/23/21 04/23/21 18:59 06:59 18:59 Intake Total 200 Balance 200 Weight 74.979 kg 77.111 kg Intake: IV 200 Other: # Voids 2 - Labs CBC & Chem 7: 04/20/21 16:48 04/20/21 15:37
[2021-04-23 12:43] VITALS: BMI 27.4
[2021-04-23 12:46] VITALS: BP 128/72; PULSE 68; RESP 17; TEMP 97.9
--- NOTE | 2021-04-23 15:20 | P.DS ---
Providers Date of admission: 04/20/21 17:01 Expected date of discharge: 04/23/21 Attending physician: Judith Lopez Consults: 04/20/21 16:59 Consult Physician Urgent Consulting Provider: Anjum Fox Consult Reason/Comments: PEG tube placement Do you want consulting provider notified?: Yes Primary care physician: Tila Nielsen [facility] Course: Final diagnosis Laryngeal cancer status post tracheostomy with intermittent aspiration History of chemotherapy x3 sessions and 35 radiation treatments. Paroxysmal atrial fibrillation on anticoagulation with Eliquis. COPD Currently everyday smoker Hypertension GERD Osteoarthritis History of rheumatic fever Cervical and low back pain History of CVA in September 2020 with no residual deficits. Anxiety DVT prophylaxis patient is already on Eliquis. Discharge disposition Patient is being discharged in a stable condition with guarded prognosis to home. Patient will follow-up with Dr. Adorno in the outpatient setting upon di scharge. Patient is also to follow-up with surgery as scheduled. Patient is to resume Plavix and anticoagulants tomorrow 04/24/2021 per surgery recommendations. Total time taken is greater than 35 minutes. Hospital course Patient is a 55-year-old male with a known history of atrial fibrillation on anticoagulation with Eliquis, hypertension, osteoarthritis, laryngeal cancer diagnosed in June 2020 status post clip placement and chemotherapy x3 sessions and radiation x35 sessions. Patient did have PEG tube previously and was removed since the patient was able to eat. Recently patient has been aspirating and unable to tolerate oral diet very well. Patient states that he is aspirating through the tracheostomy tube. Patient was seen by oncology in the clinic and was sent to ER for possible PEG tube placement. Patient denied any complaints of chest pain or shortness of. No fever no chills. No headache or dizziness or lightheadedness. No nausea vomiting abdominal pain or diarrhea. No cough or sputum production. Laboratory showed WBC 7.6 hemoglobin 13.9 and platelets 171 Sodium 135 potassium 4.8 chloride 104 bicarb is 24 BUN 16 creatinine 0.69 and other laboratories are reviewed. 04/22/2021 Patient is seen and evaluated in follow-up this morning with no acute overnight issues. Patient is currently nothing by mouth and scheduled to receive a PEG tube with surgery today. Patient continues to have aspirations and unable to tolerate oral diet. 04/23/2021 Patient is seen in follow-up this morning with no acute overnight issues. Patient underwent PEG tube placement yesterday and will trial with bolus tube feedings and continue in outpatient setting. Per surgery recommendations as patient tolerates bolus tubes feeding may be discharged this afternoon. Patient would like to be discharged home today. Dietitian following along with case management and arranged for home care in the outpatient setting. Patient has had a PEG tube in the past and does have the necessary equipment for tube feedings he states. Currently no reports of chest pain, worsening shortness of breath, or palpitations. Patient is afebrile. No reports of nausea or vomiting and patient is tolerating diet. Patient will be discharged home today. On exam vital signs are stable. Cardio S1, S2 are muffled. Respiratory system shows diminished breath sounds at the bases with no wheezing or rhonchi noted. Abdomen is soft and nontender. Nervous system shows no focal deficits. Please refer to medication reconciliation sheet for a list of medications. Patient Condition at Discharge: Stable Plan - Discharge Summary Discharge Rx Participant: Yes New Discharge Prescriptions: Continue amLODIPine [Norvasc] 10 mg PO DAILY Zolpidem [Ambien] 5 mg PO HS PRN PRN Reason: Insomnia Hydrocodone/Acetaminophen [Hycet 7.5 mg-325 mg/15 ml Soln] 15 ml PO Q8H PRN PRN Reason: Pain Atorvastatin [Lipitor] 40 mg PO HS #30 tab Albuterol Inhaler [Ventolin Hfa Inhaler] 2 puff INHALATION RT-QID PRN PRN Reason: Shortness Of Breath Metoprolol Tartrate [Lopressor] 150 mg PO BID Omeprazole 20 mg PO BID Clopidogrel [Plavix] 75 mg PO DAILY #0 Cetirizine HCl [Zyrtec] 10 mg PO DAILY Tiotropium Br/Olodaterol HCl [Stiolto Respimat Inhal [place]] 1 puff INHALATION RT-BID Apixaban [Eliquis] 5 mg PO BID #60 tab Discharge Medication List Zolpidem [Ambien] 5 mg PO HS PRN 06/21/20 [History] amLODIPine [Norvasc] 10 mg PO DAILY 06/21/20 [History] Hydrocodone/Acetaminophen [Hycet 7.5 mg-325 mg/15 ml Soln] 15 ml PO Q8H PRN 09/15/20 [History] Atorvastatin [Lipitor] 40 mg PO HS #30 tab 09/17/20 [Rx] Albuterol Inhaler [Ventolin Hfa Inhaler] 2 puff INHALATION RT-QID PRN 12/08/20 [History] Cetirizine HCl [Zyrtec] 10 mg PO DAILY 12/08/20 [History] Metoprolol Tartrate [Lopressor] 150 mg PO BID 12/11/20 [History] Omeprazole 20 mg PO BID 04/20/21 [History] Tiotropium Br/Olodaterol HCl [Stiolto Respimat Inhal [place]] 1 puff INHALATION RT-BID 04/20/21 [History] Apixaban [Eliquis] 5 mg PO BID #60 tab 04/23/21 [Rx] Clopidogrel [Plavix] 75 mg PO DAILY #0 04/23/21 [Rx] Follow up Appointment(s)/Referral(s): Anjum Fox MD [Medical Doctor] - 04/29/21 8:15 am Morales Adorno MD [Primary Care Provider] - 04/26/21 9:40 am [facility], [NON-STAFF] - ([facility] will call you to arrange the time for your first visit for 04/24/21.) Infusion Services,[facility] [REFERRING] - ([facility] will deliver the tube feeding supplies tonight between 4-6 p.m. ) Patient Instructions/Handouts: How to Use and Care for Your PEG Tube (DC), Aspiration Precautions (DC) Activity/Diet/Wound Care/Special Instructions: Okay for discharge if tolerates tube feeding activity limited until follow up follow up with pcp on discharge continue with home care continue with tube feedings ok to resume Eliquis and Plavix tomorrow on 04/24/2021 Follow-up with your oncologist outpatient Discharge Disposition: HOME WITH HOME HEALTH SERVICES
== END 2021-04-23 16:30 | disposition home health service (06) ==
LOC: EC 14:18 → INTOOBSV 17:01 → 5NMEDONC 17:01 → UNDODISIN 04-23 16:30
PROVIDERS: ADMIT Internal Medicine; ATTEND Internal Medicine
DX: T17.420A Food in trachea causing asphyxiation, initial encounter (principal); Z93.0 Tracheostomy status; R13.10 Dysphagia, unspecified; J44.9 Chronic obstructive pulmonary disease, unspecified; I48.0 Paroxysmal atrial fibrillation; I10 Essential (primary) hypertension; K21.9 Gastro-esophageal reflux disease without esophagitis; M17.0 Bilateral primary osteoarthritis of knee; M54.5 Low back pain; M54.2 Cervicalgia; F41.9 Anxiety disorder, unspecified; I99.9 Unspecified disorder of circulatory system; F17.200 Nicotine dependence, unspecified, uncomplicated; Z92.21 Personal history of antineoplastic chemotherapy; Z92.3 Personal history of irradiation; Z85.21 Personal history of malignant neoplasm of larynx; Z86.73 Personal history of transient ischemic attack (TIA), and cerebral infarction without residual deficits; Z86.19 Personal history of other infectious and parasitic diseases; Z87.01 Personal history of pneumonia (recurrent); Z87.81 Personal history of (healed) traumatic fracture; Z87.19 Personal history of other diseases of the digestive system; Z79.02 Long term (current) use of antithrombotics/antiplatelets; Z79.01 Long term (current) use of anticoagulants; Z79.899 Other long term (current) drug therapy; Z98.890 Other specified postprocedural states; Z71.3 Dietary counseling and surveillance; Z71.6 Tobacco abuse counseling; Z83.3 Family history of diabetes mellitus; Z80.1 Family history of malignant neoplasm of trachea, bronchus and lung; Z80.42 Family history of malignant neoplasm of prostate; Z81.2 Family history of tobacco abuse and dependence
CPT/HCPCS: 96360; 96361 ×2; 99284; 36415; 94640 ×6; 92610; 80053; 85025; 43246; G0378 ×4; J0690; J2704; B4087

== ENCOUNTER → 2021-05-14 | Outpatient (CLI) | payer OTHER ==
[2021-05-14 15:12] LABS: MCHC 32.4 g/dL (32.0-37.0); MCV 98.7 fL (80.0-97.0); Mean Platelet Volume 11.1 fL (9.5-12.2); Platelet Count 202 X 10*3/uL (140-440); RBC 3.75 X 10*6/uL (4.40-5.60); RDW 14.6 % (11.5-14.5); WBC 7.77 X 10*3/uL (4.50-10.00)
[2021-05-14 18:46] LABS: Anion Gap 14.2 mmol/L (4.00-12.00); Blood Urea Nitrogen 17.9 mg/dL (9.0-27.0); Carbon Dioxide 22.4 mmol/L (21.6-31.8); Potassium 4.5 mmol/L (3.5-5.5)
[2021-05-14 18:47] LABS: African American GFR (CKD) 135.1 (60.0-200.0); Non-African American GFR(CKD) 116.6 (60.0-200.0)
== END | disposition home or self-care (01) ==
LOC: LABWHC1 07:40
PROVIDERS: ATTEND Internal Medicine
DX: Z01.812 Encounter for preprocedural laboratory examination (principal); I70.212 Atherosclerosis of native arteries of extremities with intermittent claudication, left leg
CPT/HCPCS: 36415; 80051; 82565; 84520; 85027

== ENCOUNTER 2021-05-19 06:27 | Day surgery (SDC) | payer OTHER ==
[2021-05-17 14:43] VITALS: BMI 25.8
[2021-05-19] MEDS ORDERED: ASPIRIN 325 MG TAB PO ONE (07:00)
[2021-05-19 07:05] VITALS: RESP 18; TEMP 98.6
[2021-05-19] MEDS ORDERED: fentaNYL (PF) 50 MCG/ML 2 ML AMP IV ONE (07:40)
[2021-05-19] MEDS ORDERED: MIDAZOLAM 2 MG/2 ML VIAL IV ONE (07:40)
[2021-05-19] MEDS ORDERED: LIDOCAINE 1% INJ 10MG/ML (20 ML MDV) SQ ONE (07:41)
[2021-05-19] MEDS ORDERED: HEPARIN SODIUM 1,000 UN/ML (10ML VL) IV ONE (07:48)
[2021-05-19] MEDS ORDERED: IOPAMIDOL-250 100ML BTL INTRAARTER ONE (08:21)
--- NOTE | 2021-05-19 08:35 | P.PCN ---
Description of Procedure: PROCEDURES PERFORMED: Left lower extremity angiogram with runoff, pullback across the left SFA with pressure wire, Angioseal INDICATION: Class 3 claudication, PAD s/p stenting of right illiac and DCB of left SFA 12/10/20 HISTORY: Patient is a pleasant 55-year-old male with a history of previous tobacco abuse and PAD. He did have claudication symptoms mainly with calf pain and burning in his right and left legs and therefore underwent workup with eventual right common iliac stenting and left drug-coated balloon placement of the left SFA 12/10/2020. He noted improvement on the right side in terms of his calf pain with walking and initially felt that the left was somewhat better however now is having worsened the left calf pain and numbness with walking and improves with rest. The symptoms were progressive and FREEDOM was decreased on the left at approximately 0.6. Therefore the recommendation was to perform angiography with possible intervention. CONSENT:I have discussed the risks, benefits and alternative therapies for the above-mentioned procedure and for both sedation/analgesia as well as necessary blood product administration, if indicated, as they pertain to this patient. The patient has indicated understanding and acceptance of the risks and procedures discussed. PROCEDURE: After the risks, benefits and alternatives of the above mentioned procedure explained in detail with the patient, informed consent was obtained. Patient was taken to the catheterization lab and prepped and draped in usual fashion. 1% lidocaine was used to anesthetize the Right femoral area. A 6- Armenian sheath was placed in the Right femoral artery artery using modified Seldinger technique. A 6-Armenian destination sheath was placed down the left common femoral artery with the help of a rim catheter. There only appeared to be 20-30% stenosis of the left SFA and otherwise adequate two-vessel runoff to the foot. A 0.014 pressure wire was advanced to the popliteal artery and pullback was performed without any gradient noted. A right femoral angiogram was performed and anatomoy was suitable for closure. A 6Fr Angioseal was placed with hemostasis achieved. The patient tolerated the procedure well. Patient was transported back to the post catheterization holding area in stable condition. Conscious Sedation: Patient was monitored under the direct supervision of vision of myself for conscious sedation using Versed and fentanyl for a total duration of 35 minutes HEMODYNAMICS: Aorta: 136/78 Left lower extremity: Left common femoral artery: There is no significant stenosis. Left profunda: There is no significant stenosis. Left SFA: There is mild 20-30% stenosis. Left popliteal artery: There is no significant stenosis. Left tibioperoneal trunk: There is no significant stenosis. Left anterior tibial artery: There is no significant stenosis. Left porterior tibial artery: There is no 100% stenosis however good collaterals from the peroneal artery supply flow to the foot. Left peroneal artery: There is no significant stenosis. FINAL IMPRESSION: 1. Peripheral arterial disease as described above including 20-30% left SFA stenosis. No significant gradient noted with pullback across the lesion PLAN: 1. Aggressive risk factor modification per most recent ACC/AHA guidelines. 2. Given adequate 2 vessel runoff to the foot, and no significant gradient noted, would treat medically and work up other reasons for calf pain with walking. Follow-up in the office in 1-2 weeks.
--- NOTE | 2021-05-19 09:40 | IR ---
EXAMINATION TYPE: IR angio extremity LT DATE OF EXAM: 05/19/2021 CLINICAL HISTORY: Left leg pain. TECHNIQUE: Fluoroscopy. COMPARISON: None. FINDINGS: Fluoroscopic guidance was provided during left lower extremity angiography procedure perfo rmed by Dr. Mas. A total of 4.7 minutes of fluoroscopic time was utilized during the procedure and 374 spot images was acquired. Please refer to procedure note for further details if necessary. IMPRESSION: As Above.
[2021-05-19 13:23] VITALS: BP 112/64; PULSE 74
== END 2021-05-19 13:25 | disposition home or self-care (01) ==
LOC: CATHCVL 06:27
PROVIDERS: ATTEND Internal Medicine
DX: I70.212 Atherosclerosis of native arteries of extremities with intermittent claudication, left leg (principal)
CPT/HCPCS: 36246; 75710; 93571; 87635; C1760; C1769 ×3; C1894 ×2; J2250; J2001; J3010; J1644; Q9966

== ENCOUNTER 2021-06-12 22:53 | Emergency (ER) | payer OTHER ==
[2021-06-12 23:00] VITALS: BP 100/63; RESP 20; TEMP 97.5
[2021-06-12] MEDS ORDERED: IPRATROPIUM-ALBUTEROL 3 ML NEB INHALATION STA (23:21)
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
--- NOTE | 2021-06-12 23:41 | XR ---
EXAMINATION TYPE: XR chest 1V portable DATE OF EXAM: 06/12/2021 COMPARISON: 12/11/2020 HISTORY: Cough TECHNIQUE: FINDINGS: Heart is normal. Lungs are clear of infiltrate. There is no heart failure. There are no hil ar masses. Bony thorax is intact. IMPRESSION: No active cardiopulmonary disease. Normal heart. No adverse change.
[2021-06-12 23:49] VITALS: PULSE 88
== END 2021-06-13 01:25 | disposition home or self-care (01) ==
LOC: EC 22:53
DX: C14.0 Malignant neoplasm of pharynx, unspecified (principal); J44.9 Chronic obstructive pulmonary disease, unspecified; K21.9 Gastro-esophageal reflux disease without esophagitis; I48.91 Unspecified atrial fibrillation; F41.9 Anxiety disorder, unspecified; F17.200 Nicotine dependence, unspecified, uncomplicated; I10 Essential (primary) hypertension; F12.90 Cannabis use, unspecified, uncomplicated; M19.90 Unspecified osteoarthritis, unspecified site; Z86.73 Personal history of transient ischemic attack (TIA), and cerebral infarction without residual deficits; Z79.01 Long term (current) use of anticoagulants; Z72.89 Other problems related to lifestyle; Z79.51 Long term (current) use of inhaled steroids; Z79.899 Other long term (current) drug therapy
CPT/HCPCS: 71045; 94640; 99283

== ENCOUNTER → 2021-06-25 | Outpatient (CLI) | payer OTHER ==
--- NOTE | 2021-06-28 12:29 | PE ---
EXAMINATION TYPE: PET CT fusion skull to thigh DATE OF EXAM: 06/25/2021 COMPARISON: CT abdomen 11/15/2018 Prior PET/CT: 12/25/2020, 07/25/2020 HISTORY: Head and neck cancer TECHNIQUE: Following the intravenous administration of 11.32 mCi of F-18 FDG, whole body images are performed from the skull base to the midthigh. Images are reviewed on the computer in the coronal, a xial, and sagittal planes. Reconstructed rotating images are created on independent workstation and reviewed on the computer. A localization and attenuation correction CT is performed in conjunction with the PET scan. Dedicated head and neck imaging is performed. DLP: 554.35 mGycm SCAN: Subsequent Blood glucose: 110 mg/dL Average Mediastinum SUV: 1.17 Average Liver SUV: 2 FINDINGS: NECK: There is increased radiotracer accumulation within the right posterior pin drafter operator space. SUV v alue 4.1. There is a focus of radiotracer accumulation within the left oropharynx just medial to the left mandibular condyle. SUV value 4.87 image 36. Dedicated head and neck imaging: Small left focus of radiotracer appears to correspond to a small lym ph node in the parapharyngeal space. This may be in the jugulodigastric region. This not enlarged by CT criteria this is lateral to the tonsillar pillar and just medial to the left mandibular condyle. Uptake within the right posterior lateral pin drafter operator space just anterior to the tip of the right cond yle within the lateral pterygoid muscle. THORAX: No abnormal uptake ABDOMEN: No abnormal uptake PELVIS: No abnormal uptake OSSEOUS STRUCTURES: No abnormal uptake LOCALIZATION CT: There may be an enlarged lymph node in the carotid sheath region on the left. This a ppears to be just posterior to the enhancement however which may be within the pin drafter operator muscle. Thi s could be in the anterior parapharyngeal space. COMPARISON: Loaf Counter space uptake appears to be interval findings. No recurrent uptake within previ ous sites is evident. IMPRESSION: 1. New uptake within the proximal right pin drafter operator muscle. 2. New uptake in the parapharyngeal space or pin drafter operator muscle just superior to the previous orophary nx uptake of 07/25/2020. This is anterior to an enlarged lymph node which does not have elevated radi otracer uptake. 3. Recurrent or additional new abnormal areas of uptake are not identified.
== END | disposition home or self-care (01) ==
LOC: RADPETMAIN 08:16
PROVIDERS: ATTEND Internal Medicine Hematology & Oncology
DX: C76.0 Malignant neoplasm of head, face and neck (principal)
CPT/HCPCS: 78815; A9552

== ENCOUNTER → 2021-06-29 | Outpatient (CLI) | payer OTHER ==
--- NOTE | 2021-06-29 12:00 | FL ---
EXAMINATION TYPE: FL barium swallow w video DATE OF EXAM: 06/29/2021 MODIFIED SWALLOW / DEGLUTITION STUDY CLINICAL HISTORY: History of throat cancer and tracheostomy. Rule out aspiration. TECHNIQUE: Deglutition study is performed utilizing thin liquid barium, honey and nectar thick liqui d barium, barium thick applesauce, and barium coated cracker. 2 minutes 37 of fluoro time and 0 imag es obtained. COMPARISON: Prior swallow study January 12, 2021. FINDINGS: The oral and pharyngeal phases show satisfactory initiation and propagation with all modali ties tested. Satisfactory mastication is seen with solid modalities tested. There is a single episode of aspiration on swallowing residuals. No penetration or aspiration otherwise seen. Mild to moderate pharyngeal residuals were appreciated but improved from prior. IMPRESSION: Single episode of aspiration. Please refer to speech therapist notes for further details if necessary.
== END | disposition home or self-care (01) ==
LOC: RADFLMAIN 10:55
PROVIDERS: ATTEND Otolaryngology
DX: R09.89 Other specified symptoms and signs involving the circulatory and respiratory systems (principal); Z85.818 Personal history of malignant neoplasm of other sites of lip, oral cavity, and pharynx
CPT/HCPCS: 74230

== ENCOUNTER → 2021-09-22 | Outpatient (CLI) | payer OTHER ==
[2021-09-22 18:36] LABS: ALT 6 U/L (10-49); AST 25 U/L (14-35); Chol/HDL Ratio 2.96 Ratio; LDL Cholesterol,Calculated 77.5 mg/dL (0.0-131.0)
== END | disposition home or self-care (01) ==
LOC: LABWHC1 13:49
PROVIDERS: ATTEND Internal Medicine
DX: E78.2 Mixed hyperlipidemia (principal)
CPT/HCPCS: 36415; 80061; 84450; 84460

== ENCOUNTER → 2021-10-29 | Outpatient (CLI) | payer OTHER ==
--- NOTE | 2021-10-29 15:45 | PE ---
EXAMINATION TYPE: PET CT fusion skull to thigh DATE OF EXAM: 10/29/2021 COMPARISON: Prior PET/CT June 25, 2021 and older studies. HISTORY: Head and neck cancer progress study. Throat cancer diagnosed June 2020. Patient comple daya chemotherapy and radiation treatment last month. TECHNIQUE: Following the intravenous administration of 9.27 mCi of F-18 FDG, whole body images are p erformed from the skull base to the midthigh. Images are reviewed on the computer in the coronal, ax ial, and sagittal planes. Reconstructed rotating images are created on independent workstation and r eviewed on the computer. A localization and attenuation correction CT is performed in conjunction w ith the PET scan. Dedicated PET/CT imaging of the neck is performed. Blood glucose level equals 100. SCAN: Subsequent Scan FINDINGS: SKULL BASE AND NECK: No new or recurrent areas of abnormal hypermetabolic uptake with particular att ention to the left hypopharynx at level of hyoid bone and left neck at site of prior abnormal adenopa thy. CHEST, MEDIASTINUM, AND HILAR REGION: No new areas of abnormal hypermetabolic uptake. ABDOMEN AND PELVIS: No new areas of abnormal hypermetabolic uptake. Some artifact limitation level at the level of the pelvis noted. OSSEOUS STRUCTURES: No new areas of abnormal hypermetabolic uptake. OTHER CT: Moderate calcified plaque left carotid bulb with more mild calcified plaque right carotid b ulb redemonstrated. Tracheostomy tube again seen. At least moderate three-vessel coronary artery calcification is redemonstrated. Heart size upper limi ts of normal. Small degree of bilateral gynecomastia redemonstrated. Coils from ventral wall hernia repair surgery redemonstrated. No recurrent ventral wall hernia. Small fat-containing left inguinal hernia. IMPRESSION: No new hypermetabolic masses or lymph nodes to suggest active neoplastic recurrence.
== END | disposition home or self-care (01) ==
LOC: RADPETMAIN 11:53
PROVIDERS: ATTEND Internal Medicine Hematology & Oncology
DX: C76.0 Malignant neoplasm of head, face and neck (principal)
CPT/HCPCS: 78815; A9552

== ENCOUNTER → 2022-03-18 | Outpatient (CLI) | payer OTHER ==
--- NOTE | 2022-03-18 13:56 | FL ---
Exam Date: 03/18/2022 11:58 AM. Modified barium swallow for dysphagia. Consistencies administered: Various consistency of barium. Fluoro time: 47 seconds No images were sent to PACS. Please see speech pathology report.
== END | disposition home or self-care (01) ==
LOC: RADFLMAIN 11:29
PROVIDERS: ATTEND Otolaryngology
DX: R13.10 Dysphagia, unspecified (principal)
CPT/HCPCS: 74230

== ENCOUNTER → 2022-03-21 | Outpatient (CLI) | payer OTHER ==
[2022-03-21 18:02] LABS: ALT 11 U/L (10-49); AST 26 U/L (14-35); Chol/HDL Ratio 1.77 Ratio; LDL Cholesterol,Calculated 25.6 mg/dL (0.0-131.0)
== END | disposition home or self-care (01) ==
LOC: LABWHC1 12:26
PROVIDERS: ATTEND Internal Medicine
DX: E78.2 Mixed hyperlipidemia (principal)
CPT/HCPCS: 36415; 80061; 84450; 84460

== ENCOUNTER → 2022-05-21 | Outpatient (CLI) | payer OTHER ==
--- NOTE | 2022-05-21 10:06 | CT ---
EXAMINATION TYPE: CT neck chest w con DATE OF EXAM: 05/21/2022 8:01 AM COMPARISON: PET/CT 10/29/2021, CT Neck chest 04/14/2021, 06/21/2020 soft tissue neck. HISTORY: History of pyriform sinus cancer, follow up CT DLP: 753.0 mGycm Automated exposure control for dose reduction was used. CONTRAST: CT scan of the neck is performed following with IV Contrast, patient injected with 100 mL of Isovue 3 70. Axial images are obtained, coronal and sagittal reformatted images are reviewed. FINDINGS: Spaces of the neck: Single asymmetric left lymph node is unchanged from 06/21/2020 and measures simila rly at 11 mm in short axis and 25 Hounsfield units. Overall the morphology of the larynx appears similar to prior PET/CT 10/29/2021 without new suspicious mass or lymphadenopathy. Airway: Tracheostomy cannula terminates above the khang. The large airways are grossly unremarkable. Parotid/submandibular glands: No gross abnormality seen. Carotid/Vascular Structures: Heart is mildly enlarged for size with mild coronary artery atherosclero sis. Atherosclerosis at the carotid bifurcations without hemodynamically significant stenosis. Osseous Structures: No evidence for suspicious osseous lesion. There is mild multilevel disc degenera tion changes. Lungs: Prior pulmonary nodules seen on 04/14/2021 and were subsequently absent most recent PET remain a bsent without new suspicious mass or pulmonary nodule. Posterior dependent subsegmental atelectasis. No evidence of focal consolidation, pneumothorax or pleural effusion. Other: Visualized portions of the upper abdomen are grossly unremarkable. Mild bilateral gynecomastia changes are present. IMPRESSION: Overall the morphology of the larynx and area of primary malignancy appears stable back to prior PET 10/29/2021. No new suspicious enlarged lymph nodes or masses identified.
== END | disposition home or self-care (01) ==
LOC: RADCTMAIN 07:19
PROVIDERS: ATTEND Internal Medicine Hematology & Oncology
DX: C76.0 Malignant neoplasm of head, face and neck (principal)
CPT/HCPCS: 70491; 71260; Q9967

== ENCOUNTER → 2023-01-04 | Outpatient (CLI) | payer OTHER ==
--- NOTE | 2023-01-07 11:54 | CT ---
EXAMINATION TYPE: CT neck chest w con CT DLP: 1085 mGycm, Automated exposure control for dose reduction was used. DATE OF EXAM: 01/04/2023 10:39 AM COMPARISON: 05/21/2022. CLINICAL INDICATION:Male, 57 years old with history of R53.83; , Follow up for head and neck cancer. TECHNIQUE: Standard enhanced CT of the neck. Axial sections with coronal and sagittal reformats were obtained. Contrast used:100ml mL of Isovue 300 with IV Contrast, Oral contrast used: none. FINDINGS: Spaces of the neck: Stable left lymph node compared to 05/21/2022 and may be decrease in size compared to 06/21/2020 where it was 19 mm. Overall the morphology of the larynx appears similar to from 05/21/2022 and PET/CT 10/29/2021 without n ew suspicious mass or lymphadenopathy. Airway: Tracheostomy changes. The large airways are grossly unremarkable. Parotid/submandibular glands: No gross abnormality seen. Carotid/Vascular Structures: Heart is mildly enlarged for size with mild coronary artery atherosclero sis. Atherosclerosis at the carotid bifurcations without hemodynamically significant stenosis. Osseous Structures: No evidence for suspicious osseous lesion. There is mild multilevel disc degenera tion changes. Lungs: No suspicious nodules or masses. Posterior dependent subsegmental atelectasis. No evidence of focal consolidation, pneumothorax or pleural effusion. Other: Visualized portions of the upper abdomen are grossly unremarkable. Mild bilateral gynecomastia changes are present. IMPRESSION: 1. Overall the morphology of the larynx and area of primary malignancy appears stable back to prior PET 10/29/2021. No new suspicious enlarged lymph nodes or masses identified. 2. Severe coronary artery atherosclerosis.
== END | disposition home or self-care (01) ==
LOC: RADCTMAIN 09:36
PROVIDERS: ATTEND Internal Medicine Hematology & Oncology
DX: C76.0 Malignant neoplasm of head, face and neck (principal); I25.10 Atherosclerotic heart disease of native coronary artery without angina pectoris
CPT/HCPCS: 70491; 71260; Q9967

== ENCOUNTER → 2023-09-13 | Outpatient (CLI) | payer OTHER ==
--- NOTE | 2023-09-13 12:31 | XR ---
EXAMINATION TYPE: XR lumbosacral spine min 4V DATE OF EXAM: 09/13/2023 COMPARISON: None HISTORY: Neck and back pain TECHNIQUE: 5 view lumbar spine FINDINGS: Subtle scoliosis with convexity to the right knee be present. There are 5 lumbar-type verte bral bodies. Pedicles are intact. Spondylolytic defects are evident. Mild diffuse facet changes may b e present. Spondylosis is present. There is posterior disc space narrowing L4-5. Remaining disc heigh ts are preserved. Vertebral body heights are preserved. Note is made of the stent within the right co mmon iliac artery region. IMPRESSION: 1. Mild posterior disc space narrowing L4-5. 2. Mild diffuse degenerative changes within the lumbar spine
--- NOTE | 2023-09-13 12:33 | XR ---
EXAMINATION TYPE: XR cervical spine comp DATE OF EXAM: 09/13/2023 COMPARISON: None HISTORY: Neck and back pain TECHNIQUE: 5 view cervical spine FINDINGS: Dense calcifications in the expected carotid bifurcation regions more so on the left. Consi raine follow-up with ultrasound. Foraminal narrowing is present C3-4 C4-5 C5-6 on the right. Severe foraminal stenosis is present on t he left at C4-5 with more moderate foraminal narrowing C5-6. MRI could be performed as clinically ind icated Mild diffuse degenerative disc changes present C4-5 and C5-6. Remaining disc heights are preserved. V ertebral body heights are preserved. Posterior spinal lamellar line is intact. Prevertebral space is normal. Odontoid is visualized is unremarkable. IMPRESSION: 1. Severe left foraminal stenosis C4-5 with more moderate foraminal narrowing at C5-6 bilaterally C4 C4-5 on the right. Follow-up MRI can be performed as clinically indicated. 2. Mild degenerative disc changes with narrowing of disc height C4-5 and C5-6.
== END ==
LOC: RADXRMAIN 11:40
PROVIDERS: ATTEND Internal Medicine
DX: M47.816 Spondylosis without myelopathy or radiculopathy, lumbar region (principal); M99.71 Connective tissue and disc stenosis of intervertebral foramina of cervical region; M50.321 Other cervical disc degeneration at C4-C5 level; M50.322 Other cervical disc degeneration at C5-C6 level
CPT/HCPCS: 72050; 72110

== ENCOUNTER → 2023-11-20 | Outpatient (CLI) | payer OTHER ==
--- NOTE | 2023-11-20 09:17 | CT ---
EXAMINATION TYPE: CT neck w con DATE OF EXAM: 11/20/2023 8:31 AM COMPARISON: 01/04/2023, PET scan 10/29/2021 HISTORY: Malignant neoplasm of pharynx, routine follow up CT DLP: 795.50 mGycm Automated exposure control for dose reduction was used. CONTRAST: CT scan of the neck is performed following with IV Contrast, patient injected with 100 mL of Isovue 3 00. Axial images are obtained, coronal and sagittal reformatted images are reviewed. FINDINGS: Airway: There remains thickening of the hypopharynx best noted on images 45 through 52 likely related to history of prior neoplasm treated neoplasm. Overall morphology is stable.. Parotid/submandibular glands: No gross abnormality seen. Carotid/Vascular Structures: Atherosclerotic changes with no significant stenosis. Osseous Structures: Multilevel hypertrophic and degenerative disc disease. Multilevel facet arthropat hy. Other: There is a pathologic lymph node in the left parapharyngeal space measuring 1.2 cm in short ax is and stable in appearance. No additional new pathologic adenopathy. Thyroid is homogeneous. Lung apices are clear with changes of COPD. Orbits are symmetric. Intracrania l structures are stable. Changes of mild chronic sinus IMPRESSION: 1. Mucosal thickening involving the hypopharynx at the level of the hyoid bone extending inferiorly i s stable and compatible with the patient's history of prior malignancy\treated malignancy. No signifi cant interval change. 2. Stable pathologic size short axis lymph node left parapharyngeal space measuring short axis 1.2 cm . 3. No new areas of adenopathy or mass. EXAMINATION TYPE: CT chest w con DATE OF EXAM: 11/20/2023 COMPARISON: 01/04/2023, PET scan 10/29/2021 HISTORY: Malignant neoplasm of pharynx, routine follow up CT DLP: 795.50 mGycm Automated exposure control for dose reduction was used. CONTRAST: Performed with IV Contrast, patient injected with 100 mL of Isovue 300. FINDINGS: Diffuse centrilobular emphysema. Groundglass and subsegmental consolidation greatest along the depend ent portion of the lower lobes compatible with atelectasis. There are no suspicious pulmonary nodules or masses. Trace a gynecomastia bilaterally. There is atherosclerotic change of the aorta. Extensive coronary ar mayi calcification and mild cardiomegaly. No pathologic adenopathy within the axilla, mediastinum, or hilum. Structures of the upper abdomen demonstrate mild intrahepatic biliary ductal dilation. Hypertrophic a nd degenerative changes of the spine. IMPRESSION: 1. COPD with no evidence of acute intrathoracic process or metastases.
== END | disposition home or self-care (01) ==
LOC: RADCTMAIN 07:12
PROVIDERS: ATTEND Otolaryngology
DX: J44.9 Chronic obstructive pulmonary disease, unspecified (principal); J39.2 Other diseases of pharynx; C14.0 Malignant neoplasm of pharynx, unspecified; R49.0 Dysphonia
CPT/HCPCS: 70491; 71260; Q9967

== ENCOUNTER → 2023-12-19 | Outpatient (CLI) | payer OTHER ==
--- NOTE | 2023-12-23 11:19 | MR ---
EXAMINATION TYPE: MR neck wo/w con DATE OF EXAM: 12/19/2023 10:27 PM CLINICAL INDICATION:Male, 58 years old with history of R22.1 PARAPHARNYGEAL SPACE MASS, Parapharyngea l space mass, Abnormal CT in Pacs COMPARISON: 11/20/2023, 08/26/2019, CT 05/21/2022., PET 10/29/2021 and 07/25/2020 TECHNIQUE: Multi planar, multi sequence imaging was performed of the neck soft tissues. MR contrast: IV Contrast: 7.5 cc Gadobutrol FINDINGS: The left parapharyngeal space lesion is high T2 signal with lobulated borders measuring 20 x 13 mm. This is possibly connected to the deep left parotid gland series 701 image 27. No evidence f or mucosal thickening in the pharynx. This lesion is visualized on pet/CT 07/25/2020 and has a simila r morphology to today with mild uptake at that time. The glottis appears unremarkable. Several nonenlarged anterior chain lymph nodes are identified. The cervical vertebral bodies have preserved heights and alignment. Multilevel disc desiccation and anterior osteophytosis are present. There is moderate to severe C4-C5 spinal canal stenosis IMPRESSION: 1. 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 It is noted that this is seen dating back to at least 07/25/2020 CT/PET and is not significantly changed in size/morphology. Given patient's history of cancer squamous cell carcin karin is felt to be less likely. 2. C4-C5 moderate to severe spinal canal stenosis.
== END | disposition home or self-care (01) ==
LOC: RADMRIMAIN 20:45
PROVIDERS: ATTEND Otolaryngology
DX: J39.2 Other diseases of pharynx (principal); M48.02 Spinal stenosis, cervical region; R22.1 Localized swelling, mass and lump, neck
CPT/HCPCS: 70543; A9585

== ENCOUNTER → 2024-07-22 | Outpatient (CLI) | payer OTHER ==
--- NOTE | 2024-07-22 09:04 | CT ---
EXAMINATION TYPE: CT soft tissue neck w con DATE OF EXAM: 07/22/2024 8:51 AM COMPARISON: 11/20/2023, 12/19/2023.. 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 Axial sections with coronal and sagittal reformats were obtained. Contrast used:100 mL of Isovue 300 with IV Contrast, (None if empty) Oral contrast used: (None if empty) CT DLP: 400.4 mGycm, Automated exposure control for dose reduction was used. FINDINGS: Brain: Visualized portions are grossly unremarkable. Orbits: Unremarkable Sinuses: Grossly unremarkable. Spaces of the neck: Redemonstration of hypopharynx mucosal thickening similar to 11/20/2023 with left p arapharyngeal space lymph node measuring up to 11 mm in short axis. No new lymph nodes which are enla rged identified. Surgical clips and some of tissues anterior to the trachea at the level of the thyro id gland. Musculoskeletal: No acute osseous pathology. Lymph nodes: Multiple nonenlarged lymph nodes are seen along both anterior chains of the neck. Vascular structures: Visualized major arteries are patent without evidence of aneurysm. Atheroscleros is at the carotid bifurcations without significant stenosis. Thoracic Inlet/airway: Airway is patent. The lung apices are clear. Soft tissues/Thyroid: Thyroid and remainder of the soft tissues are unremarkable. Other: none. IMPRESSION: 1. Stable Mucosal thickening involving the hypopharynx at the level of the hyoid bone extending infe riorly is stable and compatible with the patient's history of prior malignancy treated malignancy. No significant interval change. Similar pathologic size short axis lymph node left parapharyngeal space measuring short axis 1.1 cm. 2. No new areas of adenopathy or mass. [facility], , 07/22/2024 9:02 AM
== END | disposition home or self-care (01) ==
LOC: RADCTMAIN 08:14
PROVIDERS: ATTEND Otolaryngology
DX: C13.9 Malignant neoplasm of hypopharynx, unspecified (principal)
CPT/HCPCS: 70491; Q9967

== ENCOUNTER 2024-07-23 18:35 | Emergency (ER) | payer OTHER ==
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
[2024-07-23 20:24] VITALS: BP 155/86; PULSE 77; RESP 18; TEMP 98.2
[2024-07-23] MEDS: CEPHALEXIN 500 MG CAP PO STA (21:25)
[2024-07-23] MEDS: CEPHALEXIN 500MG STARTER PACK 4 CAP BTL PO STA (21:26)
[2024-07-23] MEDS: LIDOCAINE 1% INJ 10MG/ML (20 ML MDV) SQ ONE (21:27)
== END 2024-07-23 21:23 | disposition home or self-care (01) ==
LOC: EC 18:35
DX: S61.011A Laceration without foreign body of right thumb without damage to nail, initial encounter (principal); F17.200 Nicotine dependence, unspecified, uncomplicated; W26.0XXA Contact with knife, initial encounter
CPT/HCPCS: 12001; 99283

== ENCOUNTER 2024-07-25 17:17 | Emergency (ER) | payer OTHER ==
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
[2024-07-25 17:25] VITALS: RESP 18
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
[2024-07-25] MEDS: traMADol 50 MG TAB PO STA (19:32)
[2024-07-25] MEDS: IBUPROFEN 800 MG TAB PO STA (19:33)
[2024-07-25] MEDS: CEPHALEXIN 500 MG CAP PO STA (19:34)
[2024-07-25] MEDS: IBUPROFEN 600 MG STARTER PACK 4 TAB BTL PO STA (19:40)
[2024-07-25] MEDS: CEPHALEXIN 500MG STARTER PACK 4 CAP BTL PO STA (19:41)
[2024-07-25] MEDS: traMADol 50 MG STARTER PACK 3 TAB BTL PO STA (19:41)
[2024-07-25 19:44] VITALS: BP 150/72; PULSE 70; TEMP 97.9
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
== END 2024-07-25 19:44 | disposition home or self-care (01) ==
LOC: EC 17:17
DX: S09.90XA Unspecified injury of head, initial encounter (principal); M25.561 Pain in right knee; F17.200 Nicotine dependence, unspecified, uncomplicated; D68.9 Coagulation defect, unspecified; Z79.01 Long term (current) use of anticoagulants; Z86.73 Personal history of transient ischemic attack (TIA), and cerebral infarction without residual deficits; V49.60XA Unspecified car occupant injured in collision with unspecified motor vehicles in traffic accident, initial encounter; Y92.410 Unspecified street and highway as the place of occurrence of the external cause
CPT/HCPCS: 70450; 72125; 99285

== ENCOUNTER → 2024-07-30 | Outpatient (CLI) | payer OTHER ==
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
== END | disposition home or self-care (01) ==
LOC: RADXRMAIN 10:57
PROVIDERS: ATTEND Internal Medicine
DX: M51.34 Other intervertebral disc degeneration, thoracic region (principal)
CPT/HCPCS: 71046; 72072

== ENCOUNTER → 2024-10-07 | Outpatient (CLI) | payer OTHER ==
[2024-10-07 20:35] LABS: Blood Urea Nitrogen 16.4 mg/dL (9.0-27.0); Carbon Dioxide 27.3 mmol/L (21.6-31.8); Chloride 100 mmol/L (96-109); Potassium 5.1 mmol/L (3.5-5.5); Sodium 137 mmol/L (135-145)
[2024-10-07 20:59] LABS: HCT 38.7 % (39.6-50.0); HGB 12.7 g/dL (13.0-17.0); MCH 31.5 pg (27.0-32.0); MCHC 32.8 g/dL (32.0-37.0); Mean Platelet Volume 10.6 FL (9.5-12.2); NRBC Per 100 WBC 0 X 10*3/uL (0.00-0.01); Platelet Count 220 X 10*3/uL (140-440); RBC 4.03 X 10*6/uL (4.40-5.60); RDW 13.6 % (11.5-14.5); WBC 7.44 X 10*3/uL (4.50-10.00)
== END | disposition home or self-care (01) ==
LOC: LABPAT 14:27
PROVIDERS: ATTEND Internal Medicine
DX: Z01.812 Encounter for preprocedural laboratory examination (principal); R07.9 Chest pain, unspecified
CPT/HCPCS: 80051; 82565; 84520; 85027

== ENCOUNTER 2024-10-09 09:56 | Day surgery (SDC) | payer OTHER ==
[2024-10-08 10:56] VITALS: BMI 25.8
[~2024-10-09 09:56] MED LIST changes: +ALPRAZolam 0.5 MG TAB PO PRN; -ASPIRIN 325 MG TAB PO PRN; +NITROGLYCERIN SL TABS 0.4 MG TAB SUBLINGUAL PRN; -SODIUM CHLORIDE 0.9% 1,000 ML in EMPTY BAG 1 BAG IV ONE
[2024-10-09] MEDS: ATORVASTATIN 80 MG TAB PO ONE (10:14)
[2024-10-09] MEDS: ASPIRIN 325 MG TAB PO ONE (10:14)
[2024-10-09] MEDS: SODIUM CHLORIDE 0.9% 1,000 ML in EMPTY BAG 1 BAG IV SCH (10:14)
[2024-10-09 10:24] VITALS: RESP 16; TEMP 97.8
[2024-10-09] MEDS: IV FLUID CONTINUATION 1,000 ML IV ONE (10:30)
[2024-10-09] MEDS: HEPARIN SODIUM,PORCINE (1 ML) 2,500 UNIT in SODIUM CHLORIDE 0.9% 250 ML IRRIGATION PRN (11:56)
[2024-10-09] MEDS: HEPARIN SODIUM,PORCINE 10,000 UNIT in SODIUM CHLORIDE 0.9% 1,000 ML IRRIGATION PRN (11:56)
[2024-10-09] MEDS: fentaNYL (PF) 50 MCG/ML 2 ML AMP IVP ONE (12:14)
[2024-10-09] MEDS: MIDAZOLAM 2 MG/2 ML VIAL IVP ONE (12:14)
[2024-10-09] MEDS: LIDOCAINE 1% INJ 10MG/ML (20 ML MDV) SQ ONE (12:15)
[2024-10-09] MEDS: VERAPAMIL SYRINGE (5 MG/10 ML) INTRAARTER ONE (12:16)
[2024-10-09] MEDS: HEPARIN SODIUM 1,000 UN/ML (10ML VL) IV ONE (12:18)
[2024-10-09] MEDS: IOPAMIDOL-370 100ML BTL INJ ONE (12:24)
--- NOTE | 2024-10-09 16:15 | P.CARDCATH ---
Description of Procedure: PROCEDURES PERFORMED: Left heart catheterization, bilateral coronary angiography, ultrasound guided arterial access INDICATION: Chest pain concerning for angina CONSENT:I have discussed the risks, benefits and alternative therapies for the above-mentioned procedure and for both sedation/analgesia as well as necessary blood product administration, if indicated, as they pertain to this patient. The patient has indicated understanding and acceptance of the risks and procedures discussed. PROCEDURE: After the risks, benefits and alternatives of the above mentioned procedure explained in detail with the patient, informed consent was obtained. Patient was taken to the catheterization lab and prepped and draped in usual fashion. Ultrasound guidance was used to assess for arterial access. 1% lidocaine was used to anesthetize the right radial artery. A 6-Palestinian sheath was placed in the right radial artery using modified Seldinger technique and ultrasound guidance. Left coronary angiography was performed with a 5-Palestinian JL 3.5 catheter and right coronary angiography was performed with a 5-Palestinian AR2 catheter in various views. A 5-Palestinian AR2 catheter was inserted into the left ventricle and pressure measurements were obtained. The right radial sheath was removed and a TR band was placed with hemostasis achieved. The patient tolerated the procedure well. Patient was transported back to the post catheterization holding area in stable condition. Conscious Sedation: Patient was monitored under the direct supervision of myself for conscious sedation using Versed and fentanyl for a total duration of 9 minutes HEMODYNAMICS: Aorta: 142/72 LV: 141/14, LVEDP 22 SELECTIVE CORONARY ARTERIOGRAPHY: LEFT MAIN: The left main is a large caliber vessel which bifurcates into the LAD and circumflex. There is no significant stenosis. LEFT ANTERIOR DESCENDING CORONARY ARTERY: LAD is a large caliber vessel which wraps around to the apex. There are mild luminal irregularities LEFT CIRCUMFLEX CORONARY ARTERY: Left circumflex is a moderate caliber vessel with mild luminal irregularities RIGHT CORONARY ARTERY: The right coronary artery is a large caliber vessel which gives off a PDA and PLV branch and is the dominant vessel. There is mid RCA 20 to 30% stenosis and otherwise mild luminal irregularities FINAL IMPRESSION: 1. Mild CAD with 20 to 30% RCA stenosis and otherwise mild 10 to 20% LAD and circumflex disease 2. Elevated left sided filling pressures PLAN: 1. Aggressive risk factor modification per most recent ACC/AHA guidelines. 2. Follow-up in the office in 1-2 weeks.
[2024-10-09 16:52] VITALS: BP 147/76; PULSE 75
== END 2024-10-09 15:37 | disposition home or self-care (01) ==
LOC: CATHCVL 09:56
PROVIDERS: ATTEND Internal Medicine
DX: I25.10 Atherosclerotic heart disease of native coronary artery without angina pectoris (principal); I10 Essential (primary) hypertension; I73.9 Peripheral vascular disease, unspecified; I48.0 Paroxysmal atrial fibrillation; E78.5 Hyperlipidemia, unspecified; Z79.01 Long term (current) use of anticoagulants; Z79.899 Other long term (current) drug therapy; Z86.73 Personal history of transient ischemic attack (TIA), and cerebral infarction without residual deficits
CPT/HCPCS: 93458; J2250; J1644 ×3; J2003; J3010; Q9967

== ENCOUNTER → 2024-10-11 | Outpatient (CLI) | payer OTHER ==
--- NOTE | 2024-10-11 12:48 | FL ---
Exam Date: 10/11/2024 12:38 PM. Modified barium swallow for dysphagia. Consistencies administered: Various consistency of barium. Fluoro time: No images were sent to PACS. Please see speech pathology report. DAP: Not recorded mGym2 Gycm2 [facility], , 10/11/2024 12:46 PM
== END | disposition home or self-care (01) ==
LOC: RADFLMAIN 11:47
PROVIDERS: ATTEND Otolaryngology
DX: C14.0 Malignant neoplasm of pharynx, unspecified (principal); R49.0 Dysphonia
CPT/HCPCS: 74230

== ENCOUNTER 2025-02-15 10:47 | Emergency (ER) | payer OTHER ==
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
[2025-02-15 12:48] VITALS: BP 148/75; PULSE 72; RESP 18; TEMP 98.2
== END 2025-02-15 12:48 | disposition home or self-care (01) ==
LOC: EC 10:47
DX: S61.211A Laceration without foreign body of left index finger without damage to nail, initial encounter (principal); F17.200 Nicotine dependence, unspecified, uncomplicated; W26.0XXA Contact with knife, initial encounter; Y93.G1 Activity, food preparation and clean up
CPT/HCPCS: 99282

== ENCOUNTER → 2025-03-03 | Outpatient (CLI) | payer OTHER ==
--- NOTE | 2025-03-03 13:53 | FL ---
Exam Date: 03/03/2025 1:02 PM. Modified barium swallow for dysphagia. Consistencies administered: Various consistency of barium No images were sent to PACS. Please see speech pathology report. DAP: Not recorded [id number] [facility], , 03/03/2025 1:50 PM
== END | disposition home or self-care (01) ==
LOC: RADFLMAIN 12:43
PROVIDERS: ATTEND Otolaryngology
DX: R13.13 Dysphagia, pharyngeal phase (principal)
CPT/HCPCS: 74230